=== PATIENT | male | born 1955 | race Caucasian/White ===

== ENCOUNTER 2016-09-25 21:25 | Emergency (ER) | payer MEDICARE, BC ==
[2016-09-25] MEDS ORDERED: ASPIRIN 81 MG TAB.CHEW ONE (21:45)
[2016-09-25] MEDS ORDERED: ASPIRIN 81 MG TAB.CHEW PO ONE (21:46)
[2016-09-25 21:52] LABS: Hematocrit 46.7 % (42.0-52.0); Hemoglobin 16.8 gm/dL (13.5-18.0); Mean Cell Volume 90.9 fl (78-100); Mean Corpuscular Hemoglobin 32.7 pg (27-31); Mean Platelet Volume 10.3 fl (6.0-9.5); Neutrophil # 3.2 K/mm3 (1.3-6.0); Neutrophil % 47.1 % (42-75.0); Platelet Count 197 K/mm3 (150-450); Red Blood Count 5.14 M/mm3 (4.7-6.0); White Blood Count 6.8 K/mm3 (4.0-10.5)
--- NOTE | 2016-09-25 22:00 | ERNOTE ---
Chest Pain/Cardiac HPI Chief Complaint: Chest Pain Time Seen by Provider: 09/25/16 21:49 Source: patient Exam Limitations: no limitations Immunizations: IMMUNIZATION HX Immunizations Up to Date Yes History of Influenza Vaccine Yes Hx Pneumococcal Vaccination Yes Allergies/Adverse Reactions: Allergies nitroglycerin Adverse Reaction (Verified 09/25/16 21:41) told not to take by his neurologist, can take in an emergenc Home Medications: HOME MEDICATIONS Aspirin [Aspirin Enteric Coated] 81 mg PO DAILY 03/27/15 [Last Taken Unknown] Enalapril Maleate [Vasotec] 10 mg PO DAILY 03/27/15 [Last Taken Unknown] Metoprolol Succinate [Toprol Xl] 200 mg PO DAILY 03/27/15 [Last Taken Unknown] Furosemide [Lasix] 40 mg PO DAILY PRN 05/25/15 [Last Taken Unknown] Atorvastatin Calcium [Lipitor] 80 mg PO DAILY 01/26/16 [Last Taken Unknown] Clopidogrel Bisulfate [Plavix] 75 mg PO DAILY 01/26/16 [Last Taken Unknown] Dabigatran Etexilate Mesylate [Pradaxa] 150 mg PO BID 01/26/16 [Last Taken Unknown] Nitroglycerin [Nitrostat] 0.4 mg SL Q5MIN PRN 02/05/16 [Last Taken Unknown] oxyCODONE HCL/ACETAMINOPHEN [Percocet 5 MG/325 MG] 1 - 2 tab PO Q4H PRN [Last Taken Unknown] Colchicine 0.6 mg PO BID #30 capsule 02/06/16 [Last Taken Unknown] Pantoprazole Sodium [Protonix] 40 mg PO DAILY 03/01/16 [Last Taken Unknown] Ranitidine HCl [Zantac] 300 mg PO QAM 03/01/16 [Last Taken Unknown] Cephalexin [Keflex] 500 mg PO QID #40 capsule 04/13/16 [Last Taken Unknown] HYDROcodone/ACETAMINOPHEN [Lorcet 5-325 mg Tablet] 1 - 2 each PO QID PRN #20 tablet 04/13/16 [Last Taken Unknown] predniSONE [Prednisone] 10 mg PO DAILY #10 tablet 04/13/16 [Last Taken Unknown] Narrative: Pt having shortness of breath for the past 4-5 days. He increased his lasix from 40mg to 80 mg daily 3 days ago. he did notice an increase in urinary output but not an improvement in his respiratory symptoms. today he has mild chest pressure Timing: constant, getting worse Severity/Quality: moderate Modifying Factors - Improves: Present: nothing Associated Symptoms: Present: diaphoresis Review of Systems - Review of Systems Constitutional: Present: diaphoresis EYE: Present: no symptoms reported ENT: Present: no symptoms reported Respiratory: Present: See HPI Cardiology: Present: See HPI Gastrointestinal/Abdominal: Present: no symptoms reported Genitourinary: Present: no symptoms reported Musculoskeletal: Present: no symptoms reported Skin: Present: no symptoms reported Neurological: Present: no symptoms reported Endocrine: Present: no symptoms reported Hematologic/Lymphatic: Present: no symptoms reported Psych: Present: no symptoms reported - Patient's Past Medical History Patient History - Medical: GERD, Other Patient History - Cardiac/Respiratory: Myocardial Infarction Patient History - Cancer: No Hx of Cancer Patient History - Surgical Procedures: Colonoscopy, Coronary Bypass Surgery, Cardiac stent, Other Patient History - Other: None - Family History Father Family History - Medical: , Alzheimer's Disease Family History - Cardiac/Respiratory: No pertinent hx - Social History Living Situations: spouse Abuse History: No History of abuse Psych History: No pertinent hx Does anyone smoke in the home?: Yes Smoking Status: Never smoker Have you smoked in the past 12 months: No Do you dip or chew tobacco: No Alcohol Use: rarely Drug Use: none - Immunizations Immunizations Up to Date: Yes Hx Pneumococcal Vaccination: Yes History of Influenza Vaccine: Yes Physical Exam - Physical Exam General Appearance: Present: wd/wn, alert, mild distress, anxious Eye Exam: Normal inspection: bilateral, PERRL: bilateral, EOMI: bilateral Ears, Nose, Throat: Present: normal ENT inspection Neck: Present: normal inspection, nontender Respiratory: Present: no respiratory distress, normal breath sounds, lungs clear Cardiovascular/Chest: Present: irregularly irregular Gastrointestinal/Abdominal: Present: normal bowel sounds Back Exam: Present: normal inspection, normal range of motion Extremity Exam: Present: no edema Neurological Exam: Present: alert, oriented, normal mood/affect Skin Exam: Present: normal color, warm/dry ED Progress - Results and Orders Patient's Lab Results:: I have reviewed the patient's lab results. Results and Orders: Laboratory Tests 09/25/16 09/25/16 09/25/16 21:35 21:35 21:35 WBC 6.8 Hgb 16.8 Hct 46.7 Plt Count 197 PT 12.5 H INR (Anticoag Therapy) 1.20 H PTT (Traill) 33.4 H Sodium 134 Potassium 4.3 Chloride 98 Carbon Dioxide 24.3 Anion Gap 16.0 H BUN 24 H Creatinine 1.41 H Est GFR (Non-Af Amer) 54 L Random Glucose 431 H Calcium 9.0 Total Bilirubin 0.6 AST 51 H ALT 88 H Alkaline Phosphatase 231 H Troponin I 0.052 B-Natriuretic Peptide 680 H Total Protein 7.4 Albumin 3.3 L 09/25/16 23:20 WBC Hgb Hct Plt Count PT INR (Anticoag Therapy) PTT (Leann) Sodium Potassium Chloride Carbon Dioxide Anion Gap BUN Creatinine Est GFR (Non-Af Amer) Random Glucose Calcium Total Bilirubin AST ALT Alkaline Phosphatase Troponin I 0.052 B-Natriuretic Peptide Total Protein Albumin - Vital Signs Patient's Vital Signs:: I have reviewed the patient's vital signs. Vital Signs: Vital Signs 09/25/16 09/25/16 21:28 21:35 Temperature 35.9 C L Pulse Rate 80 86 Respiratory 38 H Rate Blood Pressure 160/88 O2 Sat by Pulse 98 Oximetry - EKG EKG: atrial fibrillation, RBBB EKG read: Interp. by me - X-Ray X-Ray #1 X-Ray: chest Interpretation: Reviewed by me X-ray Comments: No infiltrate or effusion. X-Ray #2 X-Ray: abdomen Interpretation: Reviewed by me X-ray Comments: mild stool retention. No obstruction - Progress/Reassessment Chief Complaint: Chest Pain Departure - Departure Clinical Impression: CHF (congestive heart failure) Qualifiers: Congestive heart failure type: systolic Congestive heart failure chronicity: acute on chronic Qualified Code(s): I50.23 - Acute on chronic systolic ( congestive) heart failure Disposition: Home Follow Up Needed Condition: Good Instructions: Heart Failure, [place] Additional Instructions: continue with the increased dose of lasix (80mg ) for 2 more days. see your regular doctor in 5-7 days Referrals: Esmer Mahcado MD [Primary Care Provider] -
--- OUTSIDE RECORDS SUMMARY | 2016-09-25 22:04 | XMS REPORT | Continuity of Care Document ---
:1955 Author Organization [facility] ([facility]) Address [address] [place] [address] Phone [phone] Care Team Providers Name Role Phone Esmer Machado Primary Care Provider [phone] Source Comments This disclosure is being made pursuant to the Care Everywhere program, applicable federal and state laws, and may not contain all informaitonavailable regarding this patient.[facility] ([facility]) Active Allergies and Adverse Reactions No Known Allergies Current Medications Prescription Sig. Disp. Refills Start Date End Date Status colchicine 0.6 mg Take 1 Tab by mouth 30 Tab 11 09/11/2013 Active tablet 2 times daily as needed. Indications: GOUT aspirin 81 mg EC Take 81 mg by mouth Active tablet daily docusate 100 mg Take 100 mg by Active capsule mouth 2 times daily as needed oxyCODONE-acetamino Take 1-2 Tabs by 40 Tab 0 11/16/2014 Active phen 5-325 mg per mouth every 4 hours tablet as needed for pain. Do Not exceed 4000 mg of acetaminophen per [address] 1 tablet (0.4 25 tablet 11 03/20/2015 Active (NITROSTAT) 0.4 mg mg total) under the SL tablet tongue every 5 minutes as needed for Chest pain atorvastatin 80 mg Take 1 tablet (80 30 tablet 11 03/20/2015 Active tablet mg total) by mouth every evening ranitidine 300 mg Take 300 mg by 1 06/14/2015 Active tablet mouth 2 times daily. furosemide 40 mg Take 1 tablet (40 60 tablet 11 07/26/2015 Active tablet mg total) by mouth daily as needed. clopidogrel 75 mg Take 1 tablet (75 90 tablet 3 03/30/2016 Active tablet mg total) by mouth daily. pantoprazole 40 mg Take 1 tablet (40 90 tablet 3 03/30/2016 Active EC tablet mg total) by mouth daily. enalapril 10 mg Take 1 tablet (10 90 tablet 3 03/30/2016 Active tablet mg total) by mouth daily. predniSONE 10 mg Take 10 mg by mouth 0 04/13/2016 Active tablet daily. dabigatran Take 1 capsule (150 180 capsule 3 05/28/2016 Active (praDAXA) 150 mg mg total) by mouth capsule 2 times daily. metoPROLol tartrate Take 1 tablet (100 180 tablet 3 06/06/2016 Active 100 mg tablet mg total) by mouth 2 times daily. Active Problems Problem Noted Date S/P coronary artery stent placement 05/05/2015 Overview: 05/04/15 BRENT to LAD Coronary atherosclerosis of artery bypass graft 03/20/2015 Overview: Formatting of this note may be different from the original. CARDIOVASCULAR PROCEDURES OSTEOPATHIC PHYSICIAN: Cath (normal cors; normal LV) -2002 Cath (1. Normal LV function EF 65%. 2. Right dominant circulation. Insignificant coronary irregularities. ) - 07/06/2010 Cath (1. LVEF 50%. Apical akinesis. Distal inferior wall hypokinesis. 2. Right dominant circulation. LMCA normal. LAD long complex mid 85% stenosis involving the 1st septal rn security. Mild diffuse distal LAD disease. LCX 90% proximal stenosis. RCA large dominant vessel with 80% proximal stenosis, 95% stenosis at bifurcation of RPLA and RPDA vessels. ) - 08/23/2014 Cath 03/17/2015 Vein Graft to 1st Mrg Origin lesion, 100% stenosed. Distal LCx fills antegrade with no competetive filling. Graft to RPDA There is mild diffuse disease throughout the graft. Prox Graft lesion, 30% stenosed. This lesion initially appeared to be worse, but was realted to catheter induced spasm which improved with IC NTG. RODRIGUEZ Graft to Mid LAD The graft is angiographically normal. There is an obstructive lesion in the LAD distal to graft insertion however. Conclusion Elevated LVEDP Three vessel obstructive coronary artery disease as noted with patent SVG to RPDA and RODRIGUEZ to LAD (but lesion in LAD distal to insertion) but occluded SVG to OM S/P successful LCx and OM1 Promus drug-eluting stents Cath 05/04/2015 Stent deployment to distal LAD via RODRIGUEZ graft. No other images obtained ECHO/MUGA: Echo (Normal EF, mild LVH; mild LAE; normal echo) -2002 ELECTROPHYSIOLOGY: Ablations (RFA of typical AFl) -2003 Holter (holter with NSR interrupted by frequent PAF.) -2003 STRESS TESTS: [place] MPI (Normal EF, Distal-Anterior / Apical Ischemia) - 06/28/2010 [place] MPI (atrial fibrillation, fixed inferior wall defect. No anterior ischemia noted compared to previous study) - 07/15/2015 Type 2 diabetes mellitus with complication 03/16/2015 Chronic anticoagulation 03/16/2015 Chronic atrial fibrillation 03/08/2015 Carotid stenosis 10/19/2014 Overview: Left Carotid Endarterectomy 11/2014 Stroke 10/19/2014 Optic neuropathy, ischemic 10/19/2014 Coronary atherosclerosis of [place] coronary artery 10/01/2014 Overview: S/p 3 V CABG (RODRIGUEZ-LAD, rVG-OM, rVG-RPL) on 08.26.2014 @ [facility], Dr. Mirela Coburn. 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 Recurrent chest pain 09/06/2013 06/22/2015 Most Recent Encounters Date Type Specialty Providers Description 07/16/2016 Office Visit Neurology Beth Gomez MD Chief Comp: Patient Reported Reason For Visit Immunizations Name Dates Previously Given Next Due Influenza, unspecified 03/14/2015 Pneumococcal Polysaccharide, PPSV23 (Pneumovax 23) 03/18/2015 Social History Tobacco Use Types Packs/Day Years Used Date Former Smoker Cigarettes 0.5 40 Quit: 09/05/2013 Smokeless Tobacco: Never Used Tobacco Cessation:Counseling Given: Yes Comments:pack a day for 40 years, as of 09/06/13, 1/2 ppd for 2 years Alcohol Use Drinks/Week oz/Week Comments Yes 4 Cans of beer 6.0 none since 09/06/13 Last Filed Vital Signs Vital Sign Reading Time Taken Blood Pressure 136/76 05/08/2016 1:56 PM METHODS AND PROCEDURES ANALYST Pulse 72 05/08/2016 1:56 PM METHODS AND PROCEDURES ANALYST Temperature 36 C (96.8 F) 05/05/2015 9:16 AM METHODS AND PROCEDURES ANALYST Respiratory Rate 16 05/05/2015 9:16 AM METHODS AND PROCEDURES ANALYST Height 1.905 m (6' 3") 05/08/2016 1:56 PM METHODS AND PROCEDURES ANALYST Weight 129.729 kg (286 lb) 05/08/2016 1:56 PM METHODS AND PROCEDURES ANALYST Body Mass Index 35.75 05/08/2016 1:56 PM METHODS AND PROCEDURES ANALYST Oxygen Saturation 97% 11/28/2015 2:01 PM CDT Plan of Care Date Type Specialty Providers Description 12/04/2016 Appointment Heart and Vascular Devang Tran MD Chief Comp: Patient [address] [address] Visit [phone] (Fax) 12/31/2016 Appointment Neurology Beth Gomez MD Chief Comp: Patient [address] [place] [address] Visit [phone] (Fax) 03/05/2017 Appointment Heart and Vascular Joselin Peguero MD Chief Comp: Patient [address] [place] [address] Visit [phone] (Fax) Health Maintenance Due Date Last Done Comments HCV Screening 1955 Hepatitis B Vaccine (1 of 3 - 1955 Primary Series) Tdap Vaccine 1966 DIABETIC: Microalbumin 1973 Td Vaccine 1973 Colonoscopy 01/20/2005 Prostate Cancer Screening 2005 Diabetic: Ldl 09/08/2014 09/08/2013, 09/07/2013, 03/27/1996 DIABETIC: Foot Exam 10/01/2014 DIABETIC: Retinal Eye Exam 10/01/2014 Zoster Vaccine 2015 DIABETIC: Hemoglobin A1C 11/02/2015 05/03/2015, 09/07/2013 Influenza Vaccine: Seasonal 12/19/2015 03/14/2015 (#1) DIABETIC: Cholesterol 05/03/2016 05/03/2015, Additional history exists 09/08/2013, 09/07/2013 Diabetic: Hdl 05/03/2016 05/03/2015, Additional history exists 09/08/2013, 09/07/2013 DIABETIC: Triglycerides 05/03/2016 05/03/2015, Additional history exists 09/08/2013, 09/07/2013 Pneumococcal Vaccine Completed 03/18/2015 Results from Last 3 Months Not on file
[2016-09-25 22:19] LABS: Albumin * 3.3 gm/dl (3.4-5.0); Bilirubin, Total 0.6 mg/dL (0.0-1.1); Ca. Corrected For Albumin 9.2 mg/dL (8.4-10.2); Carbon Dioxide 24.3 mmol/L (24-32.6); Potassium 4.3 mmol/L (3.4-4.6); Total Protein 7.4 gm/dL (6.2-8.2); Troponin I 0.052 ng/ml (0.00-0.10)
[2016-09-25 22:44] LABS: Prothrombin Time (Patient) 12.5 Seconds (9.4-11.4)
[2016-09-25 22:45] LABS: INR 1.2 INR (0.90-1.10); Partial Thrombolplastin Time 33.4 Seconds (24-32)
[2016-09-26] MEDS ORDERED: FUROSEMIDE 10 MG/ML VIAL IV ONE (01:06)
[2016-09-26] MEDS ORDERED: FUROSEMIDE 10 MG/ML VIAL ONE (01:18)
[2016-09-26 01:27] VITALS: BP 143/105
== END 2016-09-26 01:30 | disposition home or self-care (01) ==
LOC: ER 21:25
DX: I50.23 Acute on chronic systolic (congestive) heart failure (principal)

== ENCOUNTER 2016-12-28 19:43 | Emergency (ER) | payer MEDICARE, BC ==
[2016-12-28 19:45] VITALS: BP 163/82
[2016-12-28] MEDS ORDERED: DIPHTH,PERTUSS(ACELL),TET VAC 0.5 ML VIAL IM ONE ×2 (19:59→20:00)
--- NOTE | 2016-12-28 20:05 | ERNOTE ---
Integumentary HPI - Narrative Date of Service: 12/28/16 - General Presenting Symptoms: other - scratch Time Seen by Provider: 12/28/16 19:50 Source: patient - Immun/Allergies/Home Medications Immunizations: IMMUNIZATION HX Immunizations Up to Date Yes History of Influenza Vaccine Yes Hx Pneumococcal Vaccination Yes Allergies/Adverse Reactions: Allergies Allergy/AdvReac Type Severity Reaction Status Date / Time nitroglycerin AdvReac told not Verified 10/30/16 11:16 to take by his neurologist, can take in an emergenc Home Medications: HOME MEDICATIONS Aspirin [Aspirin Enteric Coated] 81 mg PO DAILY 03/27/15 [Last Taken Unknown] Enalapril Maleate [Vasotec] 5 mg PO BID 03/27/15 [Last Taken Unknown] Metoprolol Succinate [Toprol Xl] 200 mg PO DAILY 03/27/15 [Last Taken Unknown] Furosemide [Lasix] 40 mg PO DAILY 05/25/15 [Last Taken Unknown] Atorvastatin Calcium [Lipitor] 80 mg PO DAILY 01/26/16 [Last Taken Unknown] Clopidogrel Bisulfate [Plavix] 75 mg PO DAILY 01/26/16 [Last Taken Unknown] Dabigatran Etexilate Mesylate [Pradaxa] 150 mg PO BID 01/26/16 [Last Taken Unknown] Nitroglycerin [Nitrostat] 0.4 mg SL Q5MIN PRN 02/05/16 [Last Taken Unknown] Colchicine 0.6 mg PO BID #30 capsule 02/06/16 [Last Taken Unknown] Pantoprazole Sodium [Protonix] 40 mg PO HS 03/01/16 [Last Taken Unknown] Ranitidine HCl [Zantac] 300 mg PO QAM 03/01/16 [Last Taken Unknown] HYDROcodone/ACETAMINOPHEN [Lorcet 5-325 mg Tablet] 1 - 2 each PO QID PRN #20 tablet 04/13/16 [Last Taken Unknown] Furosemide [Lasix] 80 mg PO DAILY PRN 10/30/16 [Last Taken Unknown] - History of Present Illness Narrative: patient scratched his right shoulder on a old [employer] [place] door. he states he is not up to date on his tetanus. Location: Reports: torso Quality: Reports: burning Severity: mild Exposure: Reports: other Modifying Factors - (Improves): Reports: nothing Modifying Factors - (Worsens): Reports: nothing Associated Symptoms: Reports: denies symptoms Review of Systems - Review of Systems Constitutional: Present: no symptoms reported EYE: Present: no symptoms reported ENT: Present: no symptoms reported Respiratory: Present: no symptoms reported Cardiology: Present: no symptoms reported Gastrointestinal/Abdominal: Present: no symptoms reported Genitourinary: Present: no symptoms reported Musculoskeletal: Present: no symptoms reported Skin: Present: See HPI, lesions Neurological: Present: no symptoms reported Endocrine: Present: no symptoms reported Hematologic/Lymphatic: Present: no symptoms reported Psych: Present: no symptoms reported All Other Systems: All systems neg except as marked - Patient's Past Medical History Patient History - Medical: GERD, Other Patient History - Cardiac/Respiratory: Myocardial Infarction Patient History - Cancer: No Hx of Cancer Patient History - Surgical Procedures: Colonoscopy, Coronary Bypass Surgery, Cardiac stent, Other Patient History - Other: None - Family History Father Family History - Medical: , Alzheimer's Disease Family History - Cardiac/Respiratory: No pertinent hx Family History - Cancer: No pertinent family hx Mother Family History - Medical: Family History - Cardiac/Respiratory: CHF, Myocardial Infarction Family History - Cancer: No pertinent family hx - Social History Living Situations: spouse Abuse History: No History of abuse Psych History: No pertinent hx Does anyone smoke in the home?: Yes Alcohol Use: rarely Drug Use: none - Immunizations Immunizations Up to Date: Yes Hx Pneumococcal Vaccination: Yes History of Influenza Vaccine: Yes Physical Exam - Physical Exam General Appearance: Present: wd/wn, alert, no apparent distress Head Exam: Present: normal inspection, no evidence of injury Eye Exam: Normal inspection: bilateral, PERRL: bilateral, EOMI: bilateral Ears, Nose, Throat: Present: normal ENT inspection, normal pharynx Neck: Present: normal inspection, nontender Respiratory: Present: no respiratory distress, normal breath sounds, no accessory muscle use, chest nontender, lungs clear Cardiovascular/Chest: Present: regular rate, rhythm, normal peripheral pulses Gastrointestinal/Abdominal: Present: normal bowel sounds, nontender, nondistended, soft, no organomegaly Back Exam: Present: normal inspection, normal range of motion, no CVA tenderness , no vertebral tenderness Extremity Exam: Present: normal inspection, non-tender, normal range of motion, no edema Neurological Exam: Present: alert, oriented, normal mood/affect, no motor/ sensory deficits Skin Exam: Present: normal color, warm/dry, other - 8cm scratch to right shoulder Lymphatic Exam: Present: no adenopathy ED Progress - Vital Signs Patient's Vital Signs:: I have reviewed the patient's vital signs. Departure Clinical Impression: Skin abrasion - Departure Disposition: Home self-care Condition: Stable Instructions: Diphtheria Toxoid; Tetanus Toxoid Adsorbed, DT, Td Additional Instructions: Continue any previous home medications. Follow-up with your primary care provider in the next 2-3 days if symptoms become worse. Monitor for signs and symptoms of infection. Referrals: Esmer Machado MD [Primary Care Provider] -
== END 2016-12-28 20:11 | disposition home or self-care (01) ==
LOC: ER 19:43
DX: S40.211A Abrasion of right shoulder, initial encounter (principal); W30.81XA Contact with agricultural transport vehicle in stationary use, initial encounter; Y93.89 Activity, other specified; Z23 Encounter for immunization

== ENCOUNTER 2017-01-13 13:11 | Emergency (ER) | payer MEDICARE, BC ==
[2017-01-13] MEDS ORDERED: MORPHINE SULFATE 4 MG/ML SYRG IV ONE (14:04)
[2017-01-13] MEDS ORDERED: MORPHINE SULFATE 4 MG/ML SYRG ONE (14:06)
--- NOTE | 2017-01-13 14:06 | ERNOTE ---
Upper Extremity HPI - Narrative Date of Service: 01/13/17 - General Extremities Pain Location: collar-bone area: left, shoulder: left, arm: left, elbow: left, forearm: left, wrist: left, hand: left Time Seen by Provider: 01/13/17 13:34 Source: patient, other - accompanied by his provides a lot of history as patient has had a previous CVA. - Immun/Allergies/Home Medications Immunizations: IMMUNIZATION HX Immunizations Up to Date Yes History of Influenza Vaccine Yes Hx Pneumococcal Vaccination No Allergies/Adverse Reactions: Allergies Allergy/AdvReac Type Severity Reaction Status Date / Time nitroglycerin AdvReac told not Verified 12/28/16 20:07 to take by his neurologist, can take in an emergenc Home Medications: HOME MEDICATIONS Aspirin [Aspirin Enteric Coated] 81 mg PO DAILY 03/27/15 [Last Taken Unknown] Enalapril Maleate [Vasotec] 5 mg PO BID 03/27/15 [Last Taken Unknown] Metoprolol Succinate [Toprol Xl] 200 mg PO DAILY 03/27/15 [Last Taken Unknown] Furosemide [Lasix] 40 mg PO DAILY 05/25/15 [Last Taken Unknown] Atorvastatin Calcium [Lipitor] 80 mg PO DAILY 01/26/16 [Last Taken Unknown] Clopidogrel Bisulfate [Plavix] 75 mg PO DAILY 01/26/16 [Last Taken Unknown] Dabigatran Etexilate Mesylate [Pradaxa] 150 mg PO BID 01/26/16 [Last Taken Unknown] Nitroglycerin [Nitrostat] 0.4 mg SL Q5MIN PRN 02/05/16 [Last Taken Unknown] Colchicine 0.6 mg PO BID #30 capsule 02/06/16 [Last Taken Unknown] Pantoprazole Sodium [Protonix] 40 mg PO HS 03/01/16 [Last Taken Unknown] Ranitidine HCl [Zantac] 300 mg PO QAM 03/01/16 [Last Taken Unknown] HYDROcodone/ACETAMINOPHEN [Lorcet 5-325 mg Tablet] 1 - 2 each PO QID PRN #20 tablet 04/13/16 [Last Taken Unknown] Furosemide [Lasix] 80 mg PO DAILY PRN 10/30/16 [Last Taken Unknown] HYDROcodone/ACETAMINOPHEN [Hydrocodon-Acetaminophn 10-325] 1 each PO Q8H 5 Days #15 tablet 01/13/17 [Last Taken Unknown] - History of Present Illness Date (Duration): 01/11/17 Time (Timing): 08:00 Occurred: other - 2 days prior patient had a left pacemaker inserted at [facility]. Patient now is complaining of increasing left upper extremity pain and swelling up. Location of Incident: other - [facility] pacemaker insertion Severity: severe Method of Injury: Reports: other - pacemaker insertion Reason for Fall: Reports: other - denies trauma status post surgical procedures noted above.. Denies: lost balance, slipped, tripped Loss of Consciousness: Denies: no loss of consciousness Modifying Factors - (Improves): Reports: other - pain medication does not help with the discomfort. Modifying Factors - (Worsens): Reports: movement Associated Symptoms: Reports: tingling, other - severe pain Other Injuries: Reports: none Prior Treament: Reports: other - patient is currently on anticoagulants PRADAXA Review of Systems - Narrative Narrative: Patient is a 61-year-old male with multiple comorbidities coronary artery disease previous CVA gouty arthritis on chronic anticoagulation therapy who presents today for left upper extremity swelling. He reports that he underwent a pacemaker insertion left upper chest and since then he had some mild swelling and discomfort he is now complaining of left upper extremity asymmetric swelling with notable left anterior chest wall pain as well. - Review of Systems Constitutional: Present: See HPI EYE: Present: vision changes, other - patient has loss of vision in left eye and diminished on the right. ENT: Present: no symptoms reported Respiratory: Present: no symptoms reported Cardiology: Present: chest pain Gastrointestinal/Abdominal: Present: no symptoms reported Genitourinary: Present: no symptoms reported Musculoskeletal: Present: See HPI, muscle stiffness, joint pain, joint swelling Skin: Present: other - left upper extremity discoloration. Neurological: Present: tingling - left upper extremity Endocrine: Present: no symptoms reported Hematologic/Lymphatic: Present: easy bruising, other - chronic anticoagulation. PRADAXA - Narrative Narrative: Past medical history, past surgical history, past family history, social history , medication history, allergies, medications were all reviewed. - Patient's Past Medical History Patient History - Medical: GERD, Other Patient History - Cardiac/Respiratory: Arrhythmias, CHF, CVA/Stroke, Myocardial Infarction Patient History - Cancer: No Hx of Cancer Patient History - Surgical Procedures: Colonoscopy, Coronary Bypass Surgery, Cardiac stent, Pacemaker, Other Patient History - Other: None - Family History Father Family History - Medical: , Alzheimer's Disease Family History - Cardiac/Respiratory: No pertinent hx Family History - Cancer: No pertinent family hx Mother Family History - Medical: Family History - Cardiac/Respiratory: CHF, Myocardial Infarction Family History - Cancer: No pertinent family hx - Social History Living Situations: home Abuse History: No History of abuse Psych History: No pertinent hx Does anyone smoke in the home?: Yes Smoking Status: Former smoker Have you smoked in the past 12 months: No Do you dip or chew tobacco: No Alcohol Use: rarely Drug Use: none - Immunizations Immunizations Up to Date: Yes Hx Pneumococcal Vaccination: No History of Influenza Vaccine: Yes Physical Exam - Physical Exam General Appearance: Present: wd/wn, alert, severe distress - due to pain Head Exam: Present: normal inspection, no evidence of injury Eye Exam: Normal inspection: bilateral, PERRL: bilateral, EOMI: bilateral Ears, Nose, Throat: Present: normal ENT inspection Neck: Present: normal inspection, nontender Respiratory: Present: no respiratory distress, normal breath sounds, no accessory muscle use, chest nontender, lungs clear Cardiovascular/Chest: Present: regular rate, rhythm, no murmur, normal peripheral pulses Gastrointestinal/Abdominal: Present: normal bowel sounds, nontender, nondistended, soft, no organomegaly Rectal Exam: Present: deferred Male Genitals Exam: Present: deferred Extremity Exam: Present: normal except -, bony tenderness, joint swelling, extremity edema, other - elbow has tophi deformity from gouty arthritis. Very tender to touch.. Absent: normal range of motion, joint redness Skin Exam: Present: other - duskiness to left upper extremity ED Progress - Results and Orders Patient's Lab Results:: I have reviewed the patient's lab results. Results and Orders: Laboratory Tests 01/13/17 14:25 WBC 8.7 RBC 4.75 Hgb 15.6 Hct 44.1 MCV 92.8 MCH 32.8 H MCHC 35.4 RDW 13.6 Plt Count 159 MPV 10.0 H Immature Gran % (Auto) 0.30 Immature Gran # (Auto) 0.03 Neutrophils % 58.0 Lymphocytes % 27.7 Monocytes % 10.1 H Eosinophils % 3.1 H Basophils % 0.8 Nucleated RBC % 0.0 Neutrophils # 5.0 Lymphocytes # 2.4 Monocytes # 0.9 Eosinophils # 0.3 Absolute Basophils 0.1 - Vital Signs Patient's Vital Signs:: I have reviewed the patient's vital signs. Vital Signs: Vital Signs 01/13/17 13:16 Temperature 36.0 C L Pulse Rate 106 H Respiratory 22 H Rate Blood Pressure 134/86 O2 Sat by Pulse 96 Oximetry - EKG EKG read: Interp. by me EKG Comments: EKG done 1452 demonstrates sinus tachycardia with first-degree AV block consistent with previous EKG on October 2013 demonstrating atrial fibrillation with rapid ventricular response right bundle branch block is old. Patient had a pacemaker inserted and he does not have a scene he still has his atrial sinus node. - X-Ray X-Ray #1 X-Ray: chest Interpretation: Reviewed by me X-ray Comments: [facility] PATIENT RADIOLOGY STUDY REPORT Patient Patient Name:DENYS ARAUJO Date: 1955 Sex: M Order Number: [id number] Unique Exam ID: [id number] Exam Requested: CXRPALAT - Chest PA Lateral * Date Scheduled: 01-13-2017 02:18 PM Study Priority: Requesting Service: Requesting Physician: Ivis Meredith Reason for Exam: congestion Radiological Report : [place] [address] [place] [address] NAME: DENYS ARAUJO : 1955 MR #: [id number] CC: Esmer Machado MD; Ivis Meredith DO LOC: ER ADM DATE: X-RAY REPORT [id number] RAD/Chest PA Lateral * Exam Date: 01/13/2017 14:18 Ordering Physician: Ivis Meredith HISTORY: congestion Additional history from technologist: Shortness of breath. Fluid in lung. TECHNIQUE: PA and lateral views of the chest were obtained. 4 images. COMPARISONS: 10/30/2016 FINDINGS: Chest PA Lateral * Interval placement of a implantable cardioverter/pacemaker device, with leads grossly intact. Generator overlying the left upper chest. Normal lung volumes. No consolidation or mass. Mildly increased vascular markings suggested. No pneumothorax or pleural fluid collections. [id number] cardiomegaly, stable. Vascular calcifications overlying the aorta suggestive of atherosclerosis. Trachea is in normal position. Bones show degenerative changes of the spine. Median sternotomy wires are present. IMPRESSION: 1. No focal acute cardiopulmonary finding. 2. Mildly increased vascular markings suggested. Correlate clinically for pulmonary venous congestion. 3. Interval placement of implantable cardioverter/pacemaker device. Electronically signed by Sergey Hernández M.D.. Sergey Hernández MD Dict: 01/13/17 1452 Typed: 01/13/17 1452/ 01/13/17 1455 01/13/17 1458 , Approved by: SERGEY HERNÁNDEZ Approval Date: 01-13-2017 Approval Time: 02:52 PM THIS REPORT WAS RECEIVED FROM THE [email or web address] SYSTEM - CT/Ultrasound CT/Ultrasound Narrative: [facility] PATIENT RADIOLOGY STUDY REPORT Patient Patient Name:DENYS ARAUJO Date: 1955 Sex: M Order Number: [id number] Unique Exam ID: [id number] Exam Requested: VENOUS-LT - US Venous Ext Limited LT * Date Scheduled: 01-13-2017 02:32 PM Study Priority: Requesting Service: Requesting Physician: Ivis Meredith Reason for Exam: left upper extremity swelling and pain status post Radiological Report : [facility] [address] [address] NAME: DENYS ARAUJO : 1955 MR #: [id number] CC: Esmer Machado MD; Ivis Meredith DO LOC: ER ADM DATE: X-RAY REPORT [id number] ULT/US Venous Ext Limited LT * Exam Date: 01/13/2017 14:32 Ordering Physician: Ivis Meredith HISTORY: Left upper extremity swelling and pain. History of recent pacemaker placement. TECHNIQUE: Transcutaneous grayscale, color and duplex ultrasound images of the left upper extremity veins were obtained. COMPARISONS: 09/06/2014 FINDINGS: US Venous Ext Limited LT * The left internal jugular, axillary, brachial, basilic, antecubital, radial, ulnar, and cephalic veins demonstrate normal compressibility with no evidence for deep venous thrombosis. Rouleau flow identified at the basilic vein but compressed on real-time as per technologist. Grossly normal color flow. The left subclavian vein was only seen partially, with the mid and distal segment obscured by pacemaker and edema around the pacemaker insertion site. The partially visualized subclavian vein appears to be unremarkable. IMPRESSION: Examination limited in regards to the evaluation of left subclavian vein due to overlying pacemaker. Otherwise negative examination without definite signs of left upper extremity deep venous thrombosis. Electronically signed by Sergey Hernández M.D.. Sergey Hernández MD Dict: 01/13/17 155 Typed: 01/13/17 1550/ 01/13/17 1557 01/13/17 1600 Approved by: SERGEY HERNÁNDEZ Approval Date: 01-13-2017 Approval Time: 03:50 PM THIS REPORT WAS RECEIVED FROM THE [email or web address] SYSTEM - Progress/Reassessment Chief Complaint: Shoulder Injury/Pain Plan - Plan Plan: Discussed discharge plans with of family patient is stable for discharge recommended that he follow up with cardiology and let his primary doctor know if he has any worsening pain. Pain control is a problem for him I did give it a refill for the next 5 days but then after that he'll have to follow up with his primary care doctor. Departure Clinical Impression: Left arm swelling, Gouty arthropathy with tophi, Hx of CABG Coronary artery disease Qualifiers: Coronary Disease-Associated Artery/Lesion type: [place] artery [place] vs. transplanted heart: [place] heart Associated angina: without angina Qualified Code(s): I25.10 - Atherosclerotic heart disease of [place] coronary artery without angina pectoris - Departure Disposition: Home self-care Instructions: Shoulder Pain, [id number], Degenerative Disk Disease Additional Instructions: USE YOUR LEFT ARM TO KEEP SWELLING DOWN, USE PAIN MEDICATIONS DIRECTED, FOLLOW UP WITH CARDIOLOGY ON SaturdayDec. Referrals: Esmer Machado MD [Primary Care Provider] - Prescriptions: HYDROcodone/ACETAMINOPHEN [Hydrocodon-Acetaminophn 10-325] 1 each PO Q8H 5 Days #15 tablet
[2017-01-13 14:33] LABS: Hematocrit 44.1 % (42.0-52.0); Hemoglobin 15.6 gm/dL (13.5-18.0); Mean Cell Volume 92.8 fl (78-100); Mean Corpuscular Hemoglobin 32.8 pg (27-31); Mean Corpuscular Hgb Conc 35.4 g/dl (32-36); Platelet Count 159 K/mm3 (150-450); Red Blood Count 4.75 M/mm3 (4.7-6.0); Red Cell Distribution Width 13.6 % (11.5-14.0); White Blood Count 8.7 K/mm3 (4.0-10.5)
[2017-01-13 14:46] LABS: Prothrombin Time (Patient) 11.6 Seconds (9.4-11.4)
[2017-01-13 14:51] LABS: INR 1.12 INR (0.90-1.10); Partial Thrombolplastin Time 32.5 Seconds (24-32)
[2017-01-13 14:54] LABS: Albumin * 3.4 gm/dl (3.4-5.0); Anion Gap 15.2 mmol/L (6.8-13.8); BUN/Creatinine Ratio 16.8 (9.0-21.6); Bilirubin, Total 0.8 mg/dL (0.0-1.1); CRP 3.9 mg/dL (0.0-0.9); Ca. Corrected For Albumin 8.7 mg/dL (8.4-10.2); Calcium * 8.5 mg/dL (7.9-10.9); Carbon Dioxide 24.6 mmol/L (24-32.6); Potassium 3.8 mmol/L (3.4-4.6); Total Protein 7.4 gm/dL (6.2-8.2); Uric Acid 6.6 mg/dL (2.6-7.2)
[2017-01-13 14:55] LABS: Troponin I 0.041 ng/ml (0.00-0.10)
[2017-01-13 18:13] VITALS: BP 151/110
== END 2017-01-13 18:13 | disposition home or self-care (01) ==
LOC: ER 13:11
DX: M79.89 Other specified soft tissue disorders (principal); M1A.9XX1 Chronic gout, unspecified, with tophus (tophi); Z95.1 Presence of aortocoronary bypass graft; I25.10 Atherosclerotic heart disease of native coronary artery without angina pectoris; Z95.5 Presence of coronary angioplasty implant and graft; Z95.0 Presence of cardiac pacemaker; Z87.891 Personal history of nicotine dependence

== ENCOUNTER 2017-03-07 14:29 | Emergency (ER) | payer MEDICARE, BC ==
[2017-03-07] MEDS ORDERED: HYDROmorphone HCL 1 MG/ML DISP.SYRIN ONE (14:31)
[2017-03-07] MEDS ORDERED: HYDROmorphone HCL 1 MG/ML DISP.SYRIN IV ONE (14:35)
--- NOTE | 2017-03-07 14:38 | ERNOTE ---
Lower Extremity HPI - General Lower Extremities Pain: hip: right Time Seen by Provider: 03/07/17 14:29 Source: patient - Immun/Allergies/Home Medications Immunizations: IMMUNIZATION HX Immunizations Up to Date Yes History of Influenza Vaccine Yes Hx Pneumococcal Vaccination No Allergies/Adverse Reactions: Allergies Allergy/AdvReac Type Severity Reaction Status Date / Time nitroglycerin AdvReac told not Verified 03/07/17 14:30 to take by his neurologist, can take in an emergenc Home Medications: HOME MEDICATIONS Aspirin [Aspirin Enteric Coated] 81 mg PO DAILY 03/27/15 [Last Taken Unknown] Enalapril Maleate [Vasotec] 5 mg PO BID 03/27/15 [Last Taken Unknown] Metoprolol Succinate [Toprol Xl] 200 mg PO DAILY 03/27/15 [Last Taken Unknown] Furosemide [Lasix] 40 mg PO DAILY 05/25/15 [Last Taken Unknown] Atorvastatin Calcium [Lipitor] 80 mg PO DAILY 01/26/16 [Last Taken Unknown] Clopidogrel Bisulfate [Plavix] 75 mg PO DAILY 01/26/16 [Last Taken Unknown] Dabigatran Etexilate Mesylate [Pradaxa] 150 mg PO BID 01/26/16 [Last Taken Unknown] Nitroglycerin [Nitrostat] 0.4 mg SL Q5MIN PRN 02/05/16 [Last Taken Unknown] Colchicine 0.6 mg PO BID #30 capsule 02/06/16 [Last Taken Unknown] Pantoprazole Sodium [Protonix] 40 mg PO HS 03/01/16 [Last Taken Unknown] Ranitidine HCl [Zantac] 300 mg PO QAM 03/01/16 [Last Taken Unknown] HYDROcodone/ACETAMINOPHEN [Lorcet 5-325 mg Tablet] 1 - 2 each PO QID PRN #20 tablet 04/13/16 [Last Taken Unknown] Furosemide [Lasix] 80 mg PO DAILY PRN 10/30/16 [Last Taken Unknown] HYDROcodone/ACETAMINOPHEN [Hydrocodon-Acetaminophn 10-325] 1 each PO Q8H 5 Days #15 tablet 01/13/17 [Last Taken Unknown] - History of Present Illness Narrative: Patient was sitting in his chair when he had sudden severe pain in his right hip /leg, denies any injury, pain is severe not responding to fentanyl or morphine. He cannot feel or move his right leg. He has an extensive vascular history (CAD, CVA), is on pradaxa which he took this morning, denies any other symptoms at this time Date (Duration): 03/07/17 Time (Timing): 13:20 Review of Systems - Review of Systems Constitutional: Absent: recent illness, fever Respiratory: Absent: shortness of breath, cough Cardiology: Absent: chest pain Gastrointestinal/Abdominal: Absent: nausea, vomiting, abdominal pain Genitourinary: Present: no symptoms reported Musculoskeletal: Present: See HPI Neurological: Present: weakness, numbness - Patient's Past Medical History Patient History - Medical: GERD, Other Patient History - Cardiac/Respiratory: Arrhythmias, CHF, CVA/Stroke, Myocardial Infarction Patient History - Cancer: No Hx of Cancer Patient History - Surgical Procedures: Colonoscopy, Coronary Bypass Surgery, Cardiac stent, Pacemaker, Other Patient History - Other: None - Family History Father Family History - Medical: , Alzheimer's Disease Family History - Cardiac/Respiratory: No pertinent hx Family History - Cancer: No pertinent family hx Mother Family History - Medical: Family History - Cardiac/Respiratory: CHF, Myocardial Infarction Family History - Cancer: No pertinent family hx - Social History Abuse History: No History of abuse Psych History: No pertinent hx - Immunizations Immunizations Up to Date: Yes Hx Pneumococcal Vaccination: No History of Influenza Vaccine: Yes Physical Exam - Physical Exam General Appearance: Present: wd/wn, alert, severe distress Respiratory: Present: no respiratory distress, normal breath sounds, no accessory muscle use, lungs clear Cardiovascular/Chest: Present: no murmur, tachycardia Extremity Exam: Present: normal except - - right lower leg pale, pulses not palpable nor appreciated with doppler, unable to feel or move right leg, no pain on passive movement of leg, no pain on palpation Neurological Exam: Present: alert, oriented, normal mood/affect, other - 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 Vital Signs: Vital Signs 03/07/17 14:31 Temperature 35.7 C L Pulse Rate 106 H Respiratory 26 H Rate Blood Pressure 156/129 O2 Sat by Pulse 99 Oximetry - EKG EKG: atrial fibrillation, RBBB, unchanged from - 01/13/2017 EKG read: Interp. 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 Condition: Fair
[2017-03-07] MEDS ORDERED: HEPARIN SODIUM,PORCINE 5,000 UNITS/ML VIAL IV ONE (14:41)
[2017-03-07] MEDS ORDERED: HEPARIN SODIUM,PORCINE/D5W 25,000 UNITS/500 ML BAG IV ONE (14:42)
[2017-03-07] MEDS ORDERED: HEPARIN SODIUM,PORCINE 5,000 UNITS/ML VIAL ONE (14:43)
[2017-03-07] MEDS ORDERED: HEPARIN SODIUM,PORCINE/D5W 25,000 UNITS/500 ML BAG IV SCH (14:45)
[2017-03-07] MEDS ORDERED: ONDANSETRON HCL/PF 2 MG/ML VIAL ONE (14:46)
[2017-03-07] MEDS ORDERED: ONDANSETRON HCL/PF 2 MG/ML VIAL IV ONE (14:48)
[2017-03-07 14:53] VITALS: BP 167/115
[2017-03-07 14:55] LABS: Hematocrit 47.5 % (42.0-52.0); Hemoglobin 17.5 gm/dL (13.5-18.0); Mean Cell Volume 90.3 fl (78-100); Mean Corpuscular Hemoglobin 33.3 pg (27-31); Mean Corpuscular Hgb Conc 36.8 g/dl (32-36); Mean Platelet Volume 10.8 fl (6.0-9.5); Neutrophil # 4.3 K/mm3 (1.3-6.0); Neutrophil % 50.5 % (42-75.0); Platelet Count 177 K/mm3 (150-450); Red Blood Count 5.26 M/mm3 (4.7-6.0); White Blood Count 8.5 K/mm3 (4.0-10.5)
[2017-03-07 15:12] LABS: Prothrombin Time (Patient) 11.6 Seconds (9.0-11.0)
[2017-03-07 15:15] LABS: INR 1.16 INR (0.90-1.10); Partial Thrombolplastin Time 29.9 Seconds (24-32)
== END 2017-03-07 15:10 | disposition short-term general hospital (02) ==
LOC: ER 14:29
DX: I74.3 Embolism and thrombosis of arteries of the lower extremities (principal); K21.9 Gastro-esophageal reflux disease without esophagitis; I50.9 Heart failure, unspecified; I25.2 Old myocardial infarction; Z95.5 Presence of coronary angioplasty implant and graft
CPT/HCPCS: 36415; 85025; 85610; 85730; 96365; 96375; 99284; J2405

== ENCOUNTER 2017-03-20 10:04 | Observation (INO) | payer MEDICARE, BC ==
[2017-03-20] MEDS ORDERED: METOPROLOL TARTRATE 1 MG/ML AMPUL IV ONE (10:26)
[2017-03-20 10:29] LABS: Hemoglobin 14.9 gm/dL (13.5-18.0); Mean Cell Volume 93.9 fl (78-100); Mean Corpuscular Hemoglobin 32.5 pg (27-31); Mean Corpuscular Hgb Conc 34.7 g/dl (32-36); Mean Platelet Volume 9.6 fl (6.0-9.5); Neutrophil # 5.7 K/mm3 (1.3-6.0); Neutrophil % 61.4 % (42-75.0); Platelet Count 293 K/mm3 (150-450); Red Blood Count 4.58 M/mm3 (4.7-6.0); Red Cell Distribution Width 13.1 % (11.5-14.0); White Blood Count 9.3 K/mm3 (4.0-10.5)
[2017-03-20 10:39] LABS: Prothrombin Time (Patient) 37.5 Seconds (9.0-11.0)
[2017-03-20 10:42] LABS: INR 3.7 INR (0.90-1.10)
[2017-03-20 10:50] LABS: Albumin * 3.3 gm/dl (3.4-5.0); Anion Gap 12.9 mmol/L (6.8-13.8); BUN/Creatinine Ratio 16.1 (9.0-21.6); Bilirubin, Total 0.8 mg/dL (0.0-1.1); CKMB 1.7 ng/mL (0.0-9.0); Ca. Corrected For Albumin 9.5 mg/dL (8.4-10.2); Calcium * 9.3 mg/dL (7.9-10.9); Carbon Dioxide 28.9 mmol/L (24-32.6); Potassium 3.8 mmol/L (3.4-4.6); Total Protein 7.9 gm/dL (6.2-8.2)
[2017-03-20 10:51] LABS: Troponin I 0.053 ng/ml (0.00-0.10)
--- NOTE | 2017-03-20 12:26 | ERNOTE ---
Dyspnea - Date Date of Service: 03/20/17 - General Presenting Symptoms: shortness of breath Time Seen by Provider: 03/20/17 10:50 Source: patient Exam Limitations: no limitations - Immun/Allergies/Home Medications Immunizations: IMMUNIZATION HX Immunizations Up to Date Yes History of Influenza Vaccine Yes Hx Pneumococcal Vaccination Yes Allergies/Adverse Reactions: Allergies nitroglycerin Adverse Reaction (Verified 03/20/17 10:31) told not to take by his neurologist, can take in an emergenc Contraindication by Dr. Gomez (neurologist [facility]), can take in case of an emergency Home Medications: HOME MEDICATIONS Aspirin [Aspirin Enteric Coated] 81 mg PO DAILY 03/27/15 [Last Taken Unknown] Enalapril Maleate [Vasotec] 10 mg PO DAILY 03/27/15 [Last Taken Unknown] Metoprolol Succinate [Toprol Xl] 200 mg PO DAILY 03/27/15 [Last Taken Unknown] Furosemide [Lasix] 40 mg PO DAILY 05/25/15 [Last Taken Unknown] Atorvastatin Calcium [Lipitor] 20 mg PO DAILY 01/26/16 [Last Taken Unknown] Nitroglycerin [Nitrostat] 0.4 mg SL Q5MIN PRN 02/05/16 [Last Taken Unknown] Colchicine 0.6 mg PO BID #30 capsule 02/06/16 [Last Taken Unknown] Pantoprazole Sodium [Protonix] 40 mg PO HS 03/01/16 [Last Taken Unknown] Ranitidine HCl [Zantac] 300 mg PO QAM 03/01/16 [Last Taken Unknown] HYDROcodone/ACETAMINOPHEN [Hydrocodon-Acetaminophn 10-325] 1 each PO Q8H 5 Days #15 tablet 01/13/17 [Last Taken Unknown] Insulin Detemir [Levemir] 25 units SC HS 03/20/17 [Last Taken Unknown] Warfarin Sodium [Coumadin] 10 mg PO DAILY 03/20/17 [Last Taken Unknown] metFORMIN HCL [Glucophage Xr] 500 mg PO DAILY 03/20/17 [Last Taken Unknown] - History of Present Illness Narrative: Patient presents for shortness of breath for the past 12 hours at home. He denies any chest pains whatsoever. He denies any diaphoresis syncope or near syncopal episodes. He denies any cough. He has a history of DVTs and he also has a history of CHF. He has increased his furosemide intake for the past 24 hours however that his shortness of breath persists. Review of Systems - Review of Systems Constitutional: Present: fatigue EYE: Present: no symptoms reported ENT: Present: no symptoms reported Respiratory: Present: shortness of breath. Absent: cough, wheezing Cardiology: Present: no symptoms reported Gastrointestinal/Abdominal: Present: no symptoms reported Genitourinary: Present: no symptoms reported Musculoskeletal: Present: no symptoms reported Skin: Present: no symptoms reported - Patient's Past Medical History Patient History - Medical: GERD, Other Patient History - Cardiac/Respiratory: Arrhythmias, CHF, CVA/Stroke, Myocardial Infarction Patient History - Cancer: No Hx of Cancer Patient History - Surgical Procedures: Colonoscopy, Coronary Bypass Surgery, Cardiac stent, Pacemaker, Other Patient History - Other: None - Family History Father Family History - Medical: , Alzheimer's Disease Family History - Cardiac/Respiratory: No pertinent hx Family History - Cancer: No pertinent family hx Mother Family History - Medical: Family History - Cardiac/Respiratory: CHF, Myocardial Infarction Family History - Cancer: No pertinent family hx - Social History Living Situations: home Abuse History: No History of abuse Psych History: No pertinent hx Smoking Status: Former smoker Alcohol Use: none Drug Use: none - Immunizations Immunizations Up to Date: Yes Hx Pneumococcal Vaccination: Yes History of Influenza Vaccine: Yes Physical Exam - Physical Exam General Appearance: Present: wd/wn, alert, no apparent distress - patient does not appear to be in any respiratory distress however he is breathing rapidly his oxygen saturation is maintaining at 96% on room air but he feels short of breath. Head Exam: Present: normal inspection, no evidence of injury Eye Exam: Normal inspection: bilateral, PERRL: bilateral, EOMI: bilateral Ears, Nose, Throat: Present: normal ENT inspection, normal pharynx Neck: Present: normal inspection, nontender, supple Respiratory: Present: no respiratory distress, normal breath sounds, no accessory muscle use, chest nontender, lungs clear Cardiovascular/Chest: Present: regular rate, rhythm, no murmur, normal peripheral pulses Gastrointestinal/Abdominal: Present: normal bowel sounds, nontender, nondistended, soft, no organomegaly Back Exam: Present: normal inspection Extremity Exam: Present: other - there is minimal edema of both lower extremities however they are not pitting. Neurological Exam: Present: alert, oriented, normal mood/affect, no motor/ sensory deficits, straw baler II-XII nml as tested Skin Exam: Present: normal color, warm/dry ED Progress - Results and Orders Patient's Lab Results:: I have reviewed the patient's lab results. - Vital Signs Patient's Vital Signs:: I have reviewed the patient's vital signs. Vital Signs: Vital Signs 03/20/17 03/20/17 03/20/17 10:05 10:45 11:18 Temperature 37.1 C Pulse Rate 103 H 96 86 Respiratory 15 16 12 Rate Blood Pressure 138/91 128/83 117/86 O2 Sat by Pulse 95 96 97 Oximetry 03/20/17 12:04 Temperature 36.7 C Pulse Rate 110 H Respiratory 19 Rate Blood Pressure 125/76 O2 Sat by Pulse 97 Oximetry - Progress/Reassessment Chief Complaint: Dyspnea Plan - Plan Plan: This patient's d-dimer is elevated however CTA was negative for a pulmonary embolus. Patient's BNP is elevated at greater than 3400 where the last one was [address] Babb consulted in regards to admitting this patient for CHF exacerbation. Dr. Babb graciously accepted the patient Departure Clinical Impression: CHF exacerbation Qualifiers: Congestive heart failure type: unspecified congestive heart failure type Qualified Code(s): I50.9 - Heart failure, unspecified - Departure Disposition: [facility] Condition: Fair
[2017-03-20] MEDS ORDERED: FUROSEMIDE 10 MG/ML VIAL IV ONE (13:18)
--- NOTE | 2017-03-20 15:27 | HP ---
Chief Complaint - Chief Complaint Date of Service: 03/20/17 Time of Service: 15:22 Chief Complaint: shortness of breath History of Present Illness: Hi Zelaya, is a 62-year-old white male, with previous medical history of congestive heart failure ejection fraction of 25% coronary artery disease status post CABG, recent deep vein thrombosis, who was admitted on 03/20/2017 because of sudden shortness of breath. He was just recently discharged from [facility] a blood clot in his right femoral artery which was removed by vascular surgery. He had acute sudden shortness of breath last night and could not sleep well. He denied any chest pain, cough . fever or chills. He took extra doses of his Lasix but that did not help , so he went to our emergency room. In the emergency room the patient had CT scan of the chest following pulmonary embolism protocol and that did not show any pulmonary embolus. His BNP though was elevated at 3400. He was then admitted for acute exacerbation of his congestive heart failure. The patient said that he did not miss any of his medication but had potat o and ham for his dinner. - Patient's Past Medical History Patient History - Medical: GERD, Other Patient History - Cardiac/Respiratory: Arrhythmias, CHF, CVA/Stroke, Myocardial Infarction Patient History - Cancer: No Hx of Cancer Patient History - Surgical Procedures: Colonoscopy, Coronary Bypass Surgery, Cardiac stent, Other Patient History - Other: None - Family History Father Family History - Medical: , Alzheimer's Disease Family History - Cardiac/Respiratory: No pertinent hx Family History - Cancer: No pertinent family hx Mother Family History - Medical: Family History - Cardiac/Respiratory: CHF, Myocardial Infarction Family History - Cancer: No pertinent family hx - Social History Living Situations: spouse Abuse History: No History of abuse Psych History: No pertinent hx Smoking Status: Former smoker Have you smoked in the past 12 months: No Do you dip or chew tobacco: No Patient requests Smoking Cessation Consult: No Initiate information on Smoking Cessation: No Alcohol Use: none Drug Use: none - Immunizations Immunizations Up to Date: Yes Hx Pneumococcal Vaccination: Yes History of Influenza Vaccine: Yes Review Of Systems (GEN) - Review of Systems Generalized/Overall Review: Absent: Weakness, Chills, Fever EENTM: Present: No Symptoms Reported Respiratory: Present: Shortness of Breath, Orthopnea. Absent: Cough Cardiac: Present: Edema. Absent: Chest Pain, Palpitations Abdominal: Absent: Nausea, Vomiting Genitourinary: Absent: Urgency, Frequency Musculoskeletal: Present: Joint Pain Immunizations: IMMUNIZATION HX Immunizations Up to Date Yes History of Influenza Vaccine Yes Hx Pneumococcal Vaccination Yes Allergies/Adverse Reactions: Allergies Allergy/AdvReac Type Severity Reaction Status Date / Time nitroglycerin AdvReac told not Verified 03/20/17 12:54 to take by his neurologist, can take in an emergenc Home Medications: HOME MEDICATIONS Aspirin [Aspirin Enteric Coated] 81 mg PO DAILY 03/27/15 [Last Taken Unknown] Metoprolol Succinate [Toprol Xl] 200 mg PO DAILY 03/27/15 [Last Taken Unknown] Furosemide [Lasix] 40 mg PO DAILY 05/25/15 [Last Taken Unknown] Atorvastatin Calcium [Lipitor] 20 mg PO DAILY 01/26/16 [Last Taken Unknown] Nitroglycerin [Nitrostat] 0.4 mg SL Q5MIN PRN 02/05/16 [Last Taken Unknown] Colchicine 0.6 mg PO BID #30 capsule 02/06/16 [Last Taken Unknown] Pantoprazole Sodium [Protonix] 40 mg PO HS 03/01/16 [Last Taken Unknown] Ranitidine HCl [Zantac] 300 mg PO QAM 03/01/16 [Last Taken Unknown] HYDROcodone/ACETAMINOPHEN [Hydrocodon-Acetaminophn 10-325] 1 each PO Q8H 5 Days #15 tablet 01/13/17 [Last Taken Unknown] Enalapril Maleate [Vasotec] 5 mg PO BID 03/20/17 [Last Taken Unknown] Insulin Detemir [Levemir] 25 units SC HS 03/20/17 [Last Taken Unknown] Warfarin Sodium [Coumadin] 10 mg PO DAILY 03/20/17 [Last Taken Unknown] metFORMIN HCL [Glucophage Xr] 500 mg PO DAILY 03/20/17 [Last Taken Unknown] Exam - Exam Vital Signs: Vital Signs - Last Taken Temp 36.3 C L 03/20/17 14:07 Pulse 110 H 03/20/17 14:31 Resp 16 03/20/17 14:07 BP 130/76 03/20/17 14:07 Pulse Ox 98 03/20/17 14:07 Constitutional: Present: Alert, Oriented x3, Cooperative ENT Exam: Present: hearing grossly normal Eye Exam: bilateral eye: normal inspection, PERRL, EOMI Neck: Present: supple Respiratory: Present: decreased breath sounds, No rales, No wheezing Cardiovascular/Chest: Present: no murmur - Therapy, JVD, irregularly irregular Abdomen: Present: Normal bowel sounds, soft, nontender, nondistended Extremity: Present: no calf tenderness, lower extremity edema Diagnostic Studies: Laboratory Results WBC 9.3 K/mm3 (4.0-10.5) 03/20/17 10:23 RBC 4.58 M/mm3 (4.7-6.0) L 03/20/17 10:23 Hgb 14.9 gm/dL (13.5-18.0) 03/20/17 10:23 Hct 43.0 % (42.0-52.0) 03/20/17 10:23 MCV 93.9 fl (78-100) 03/20/17 10:23 MCH 32.5 pg (27-31) H 03/20/17 10:23 MCHC 34.7 g/dl (32-36) 03/20/17 10:23 RDW 13.1 % (11.5-14.0) 03/20/17 10:23 Plt Count 293 K/mm3 (150-450) 03/20/17 10:23 MPV 9.6 fl (6.0-9.5) H 03/20/17 10:23 Immature Gran % (Auto) 0.40 % (0.001-0.429) 03/20/17 10:23 Immature Gran # (Auto) 0.04 K/mm3 (0.000-0.0310) H 03/20/17 10:23 Neutrophils % 61.4 % (42-75.0) 03/20/17 10:23 Lymphocytes % 26.0 % (20-51) 03/20/17 10:23 Monocytes % 8.7 % (0.0-9) 03/20/17 10:23 Eosinophils % 2.7 % (0.0-3.0) 03/20/17 10:23 Basophils % 0.8 % (0.0-1.0) 03/20/17 10:23 Nucleated RBC % 0.0 k/mm3 (0-1) 03/20/17 10:23 Neutrophils # 5.7 K/mm3 (1.3-6.0) 03/20/17 10:23 Lymphocytes # 2.4 k/mm3 (1.5-3.5) 03/20/17 10:23 Monocytes # 0.8 k/mm3 (0.0-1.0) 03/20/17 10:23 Eosinophils # 0.3 k/mm3 (0.0-0.7) 03/20/17 10:23 Absolute Basophils 0.1 k/mm3 (0.0-0.1) 03/20/17 10:23 PT 37.5 Seconds (9.0-11.0) H 03/20/17 10:23 INR (Anticoag Therapy) 3.70 INR (0.90-1.10) H 03/20/17 10:23 D-Dimer 1.71 mg/L (0.19-0.49) H 03/20/17 10:23 Sodium 137 mmol/L (132-142) 03/20/17 10:23 Plasma Sodium 138 mmol/L (130-142) 03/20/17 10:23 Potassium 3.8 mmol/L (3.4-4.6) 03/20/17 10:23 Chloride 99 mmol/L (97-106) 03/20/17 10:23 Carbon Dioxide 28.9 mmol/L (24-32.6) 03/20/17 10:23 Anion Gap 12.9 mmol/L (6.8-13.8) 03/20/17 10:23 BUN 19 mg/dL (6-23) 03/20/17 10:23 Creatinine 1.18 mg/dL (0.4-1.4) 03/20/17 10:23 Est GFR (Non-Af Amer) 66 mL/min (60-130) 03/20/17 10:23 BUN/Creatinine Ratio 16.1 (9.0-21.6) 03/20/17 10:23 Random Glucose 135 mg/dL (70-110) H 03/20/17 10:23 Calcium 9.3 mg/dL (7.9-10.9) 03/20/17 10:23 Calcium Adj for Albumin 9.5 mg/dL (8.4-10.2) 03/20/17 10:23 Total Bilirubin 0.8 mg/dL (0.0-1.1) 03/20/17 10:23 AST 70 U/L (0-48) H 03/20/17 10:23 ALT 83 U/L (19-67) H 03/20/17 10:23 Alkaline Phosphatase 116 U/L (50-170) 03/20/17 10:23 CK-MB (CK-2) 1.7 ng/mL (0.0-9.0) 03/20/17 10:23 Troponin I 0.053 ng/ml (0.00-0.10) 03/20/17 10:23 B-Natriuretic Peptide 3401 pg/mL (5-175) H 03/20/17 10:23 Total Protein 7.9 gm/dL (6.2-8.2) 03/20/17 10:23 Albumin 3.3 gm/dl (3.4-5.0) L 03/20/17 10:23 Assessment/Plan - Assessment/Plan (1) Acute on chronic systolic (congestive) heart failure Assessment: will diurese him with IV lasix today and possible discharge tomorrow. Echo was christiano agarwal in October of 2016 and it showed EF of 25 %. 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
[2017-03-20] MEDS ORDERED: NITROGLYCERIN 0.4 MG/TAB BTL SL PRN (15:39)
[2017-03-20] MEDS ORDERED: HYDROcodone/ACETAMINOPHEN 1 EACH TABLET PO SCH (15:45)
[2017-03-20] MEDS: POTASSIUM CHLORIDE 20 MEQ TABLET.SA PO SCH ×2 (16:11→16:13)
[2017-03-20] MEDS ORDERED: HYDROcodone/ACETAMINOPHEN 1 EACH TABLET PO PRN (16:20)
[2017-03-20] MEDS: ENALAPRIL MALEATE 5 MG TABLET PO SCH (20:36)
[2017-03-20] MEDS: COLCHICINE 0.6 MG TABLET PO SCH (20:36)
[2017-03-20] MEDS: FUROSEMIDE 10 MG/ML VIAL IV SCH (20:37)
[2017-03-20] MEDS ORDERED: INSULIN DETEMIR 100 UNITS/ML VIAL SC SCH (21:00)
[2017-03-20] MEDS ORDERED: PANTOPRAZOLE SODIUM 40 MG TABLET.EC PO SCH (21:00)
[2017-03-20] MEDS ORDERED: TORSEMIDE 20 MG TABLET PO SCH (21:00)
[2017-03-20] MEDS ORDERED: ROSUVASTATIN CALCIUM 10 MG TABLET PO SCH (21:00)
--- NOTE | 2017-03-21 05:09 | DS ---
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 Problem: Chronic Qualifiers: Atrial fibrillation type: persistent Qualified Code(s): I48.1 - Persistent atrial fibrillation Description of Stay: Admission HPI by Dr. Дмитрий Babb. Hi Zelaya, is a 62-year-old white male, with previous medical history of congestive heart failure ejection fraction of 25% coronary artery disease status post CABG, recent deep vein thrombosis, who was admitted on 03/20/2017 because of sudden shortness of breath. He was just recently discharged from [facility] a blood clot in his right femoral artery which was removed by vascular surgery. He had acute sudden shortness of breath last night and could not sleep well. He denied any chest pain, cough . fever or chills. He took extra doses of his Lasix but that did not help , so he went to our emergency room. In the emergency room the patient had CT scan of the chest following pulmonary embolism protocol and that did not show any pulmonary embolus. His BNP though was elevated at 3400. He was then admitted for acute exacerbation of his congestive heart failure. The patient said that he did not miss any of his medication but had potat o and ham for his dinner. Hospital Problem/s 1.) Acute Exacerbation of CHF. Pt was admitted for an overnight observation stay due to SOB. The CXR did not have any findings to suggest fluid overload/CHF. He did not require any oxygen supplementation during the stay. His BNP was elevated at 3401 on admission and on morning of DC, it was down to 1141. He received a total of 200mg of IV Lasix and he diuresed nearly 3L. He felt less SOB on the morning of discharge. His electrolytes were in NR. He was determined to be in a stable state to be discharged and will follow-up with his PCP next week. He will resume his home dose of Lasix 40 mg as needed upto 160mg per arrangements with his Cardiology Dr. Peguero. Procedures Performed: none Discharge Disposition: Home self care Disposition: Home self-care Condition: Good Discharge Activity: Activity as tolerated Discharge Diet: Consistent carbs, Low salt Problem Oriented Discharge Instructions to Patient/Family: CHF Patient Instructions Additional Patient Instructions (free text): Follow-up with Dr. Babb next week. Complete Home Medications List: Complete Home Medication List: Aspirin [Aspirin Enteric Coated] 81 mg PO DAILY 03/27/15 Metoprolol Succinate [Toprol Xl] 200 mg PO DAILY 03/27/15 Furosemide [Lasix] 40 mg PO DAILY 05/25/15 Atorvastatin Calcium [Lipitor] 20 mg PO DAILY 01/26/16 Nitroglycerin [Nitrostat] 0.4 mg SL Q5MIN PRN 02/05/16 Colchicine 0.6 mg PO BID #30 capsule 02/06/16 Pantoprazole Sodium [Protonix] 40 mg PO HS 03/01/16 Ranitidine HCl [Zantac] 300 mg PO QAM 03/01/16 HYDROcodone/ACETAMINOPHEN [Hydrocodon-Acetaminophn 10-325] 1 each PO Q8H 5 Days #15 tablet 01/13/17 Enalapril Maleate [Vasotec] 5 mg PO BID 03/20/17 Insulin Detemir [Levemir] 25 units SC HS 03/20/17 Warfarin Sodium [Coumadin] 10 mg PO DAILY 03/20/17 metFORMIN HCL [Glucophage Xr] 500 mg PO DAILY 03/20/17
[2017-03-21 06:06] LABS: Hematocrit 41.4 % (42.0-52.0); Hemoglobin 14.5 gm/dL (13.5-18.0); Mean Cell Volume 92.8 fl (78-100); Mean Corpuscular Hemoglobin 32.5 pg (27-31); Mean Platelet Volume 9.6 fl (6.0-9.5); Neutrophil % 44.2 % (42-75.0); Platelet Count 252 K/mm3 (150-450); Red Blood Count 4.46 M/mm3 (4.7-6.0); Red Cell Distribution Width 12.9 % (11.5-14.0); White Blood Count 6.7 K/mm3 (4.0-10.5)
[2017-03-21 06:29] LABS: Anion Gap 11.2 mmol/L (6.8-13.8); BUN/Creatinine Ratio 18.2 (9.0-21.6); Calcium * 9.4 mg/dL (7.9-10.9); Carbon Dioxide 31.5 mmol/L (24-32.6); Estimated Creat Clear 75.7; Potassium 3.7 mmol/L (3.4-4.6)
[2017-03-21 06:50] LABS: Prothrombin Time (Patient) 30.9 Seconds (9.0-11.0)
[2017-03-21 06:51] LABS: INR 3.06 INR (0.90-1.10)
[2017-03-21 07:06] VITALS: BP 128/84
[2017-03-21] MEDS: COLCHICINE 0.6 MG TABLET PO SCH (08:49)
[2017-03-21] MEDS: ENALAPRIL MALEATE 5 MG TABLET PO SCH (08:50)
[2017-03-21] MEDS: POTASSIUM CHLORIDE 20 MEQ TABLET.SA PO SCH (08:50)
[2017-03-21] MEDS ORDERED: METOPROLOL SUCCINATE 100 MG TABLET.SA PO SCH (09:00)
[2017-03-21] MEDS ORDERED: FAMOTIDINE 20 MG TABLET PO SCH (09:00)
[2017-03-21] MEDS ORDERED: ASPIRIN 81 MG TABLET.DR PO SCH (09:00)
[2017-03-21] MEDS: FUROSEMIDE 10 MG/ML VIAL IV SCH (09:16)
== END 2017-03-21 10:50 | disposition home health service (06) ==
LOC: ER 10:04 → MS 12:23
PROVIDERS: ADMIT Internal Medicine; ATTEND Internal Medicine
DX: I50.23 Acute on chronic systolic (congestive) heart failure (principal); I74.3 Embolism and thrombosis of arteries of the lower extremities; I10 Essential (primary) hypertension; I48.91 Unspecified atrial fibrillation; M1A.029 Idiopathic chronic gout, unspecified elbow; I65.29 Occlusion and stenosis of unspecified carotid artery; E78.5 Hyperlipidemia, unspecified; Z95.1 Presence of aortocoronary bypass graft; Z86.73 Personal history of transient ischemic attack (TIA), and cerebral infarction without residual deficits; Z68.36 Body mass index [BMI] 36.0-36.9, adult; Z79.01 Long term (current) use of anticoagulants; Z79.84 Long term (current) use of oral hypoglycemic drugs; Z87.891 Personal history of nicotine dependence
CPT/HCPCS: 36415; 71020; 71275; 80048; 80053; 82553; 83880; 84484; 85025; 85379; 85610; 93005; 96372; 96374; 96376; 99283; G0378

== ENCOUNTER 2017-04-08 19:10 | Emergency (ER) | payer MEDICARE, BC ==
--- NOTE | 2017-04-08 19:52 | ERNOTE ---
<Colt Martin - Last Filed: 04/08/17 19:47> Dyspnea - Date Date of Service: 04/08/17 - General Presenting Symptoms: shortness of breath Time Seen by Provider: 04/08/17 19:41 Source: patient Exam Limitations: no limitations - Immun/Allergies/Home Medications Immunizations: IMMUNIZATION HX Immunizations Up to Date Yes History of Influenza Vaccine Yes Hx Pneumococcal Vaccination Yes Allergies/Adverse Reactions: Allergies nitroglycerin Adverse Reaction (Verified 03/20/17 12:54) told not to take by his neurologist, can take in an emergenc Contraindication by Dr. Gomez (neurologist [facility]), can take in case of an emergency Home Medications: HOME MEDICATIONS Aspirin [Aspirin Enteric Coated] 81 mg PO DAILY 03/27/15 [Last Taken Unknown] Metoprolol Succinate [Toprol Xl] 200 mg PO DAILY 03/27/15 [Last Taken Unknown] Furosemide [Lasix] 40 mg PO DAILY 05/25/15 [Last Taken Unknown] Atorvastatin Calcium [Lipitor] 20 mg PO DAILY 01/26/16 [Last Taken Unknown] Nitroglycerin [Nitrostat] 0.4 mg SL Q5MIN PRN 02/05/16 [Last Taken Unknown] Colchicine 0.6 mg PO BID #30 capsule 02/06/16 [Last Taken Unknown] Pantoprazole Sodium [Protonix] 40 mg PO HS 03/01/16 [Last Taken Unknown] Ranitidine HCl [Zantac] 300 mg PO QAM 03/01/16 [Last Taken Unknown] Albuterol Sulfate [Ventolin Hfa] 8 gm IH QID PRN #1 [id number] 04/08/17 [Last Taken Unknown] Azithromycin 250 mg PO DAILY #4 tablet 04/08/17 [Last Taken Unknown] Clopidogrel Bisulfate [Plavix] 75 mg PO DAILY 04/08/17 [Last Taken Unknown] Dabigatran Etexilate Mesylate [Pradaxa] 150 mg PO DAILY 04/08/17 [Last Taken Unknown] oxyCODONE HCL/ACETAMINOPHEN [Percocet 5-325 mg Tablet] 1 each PO PRN PRN [Last Taken Unknown] - History of Present Illness Narrative: Patient presents to the ED with SOB. he relates Increasing SOB all through the day today. his weight has been stable up until yesterday. No fever. Has been having cough for the last approx 1 week. Has taken extra lasix today but had maxed out on that so came to the ED by EMS. Noncardiac chest pain. No vomiting but some nausea. SOB worse when he tries to sleep. Severity: moderate Treatment BRANDS EDITOR: paramedics Initiating event: Reports: upper resp illness Frequency of episodes: Reports: frequent episodes Modifying Factors - (Improves): Reports: nothing Modifying Factors (Worsens): Reports: other - trying to sleep\ Associated Symptoms-Dyspnea: Reports: cough. Denies: fever/chills, chest pain/ discomfort Prior Treatment: Denies: recently hospitalized Review of Systems - Review of Systems Constitutional: Absent: fever ENT: Absent: sore throat Respiratory: Present: shortness of breath, cough Cardiology: Absent: chest pain Gastrointestinal/Abdominal: Present: nausea. Absent: abdominal pain Genitourinary: Absent: dysuria Skin: Absent: rash Neurological: Absent: weakness, other - left arm tingles at times All Other Systems: All systems neg except as marked - Patient's Past Medical History Patient History - Medical: GERD, Other Patient History - Cardiac/Respiratory: Arrhythmias, CHF, CVA/Stroke, Myocardial Infarction Patient History - Cancer: No Hx of Cancer Patient History - Surgical Procedures: Colonoscopy, Coronary Bypass Surgery, Cardiac stent, Other Patient History - Other: None - Family History Father Family History - Medical: , Alzheimer's Disease Family History - Cardiac/Respiratory: No pertinent hx Family History - Cancer: No pertinent family hx Mother Family History - Medical: Family History - Cardiac/Respiratory: CHF, Myocardial Infarction Family History - Cancer: No pertinent family hx - Social History Living Situations: home Abuse History: No History of abuse Psych History: No pertinent hx Smoking Status: Former smoker Alcohol Use: none Drug Use: none - Immunizations Immunizations Up to Date: Yes Hx Pneumococcal Vaccination: Yes History of Influenza Vaccine: Yes Physical Exam - Physical Exam General Appearance: Present: alert, no apparent distress Head Exam: Present: normal inspection, no evidence of injury Eye Exam: Normal inspection: bilateral, PERRL: bilateral Ears, Nose, Throat: Present: normal ENT inspection Neck: Present: normal inspection Respiratory: Present: no respiratory distress, rhonchi Cardiovascular/Chest: Present: regular rate, rhythm, normal peripheral pulses Gastrointestinal/Abdominal: Present: normal bowel sounds, nontender, nondistended, soft Back Exam: Absent: CVA tenderness (R), CVA tenderness (L) Extremity Exam: Present: other - +1 pretibial edema. no DVT findings Neurological Exam: Present: alert, normal mood/affect, no motor/sensory deficits Skin Exam: Present: normal color, warm/dry ED Progress - Vital Signs Patient's Vital Signs:: I have reviewed the patient's vital signs. Vital Signs: Vital Signs 04/08/17 04/08/17 19:16 19:39 Temperature 38.2 C H Pulse Rate 93 85 Respiratory 16 21 H Rate Blood Pressure 125/73 110/65 O2 Sat by Pulse 96 96 Oximetry - EKG EKG read: Interp. by me EKG Comments: A fib controlled rate. RBBB. No clear evidence of STEMI. - Progress/Reassessment Chief Complaint: Dyspnea - Transfer of Care Physician Sign Out: Colt Martin Receiving Physician: Usama Royal Pending Results: Labs, X-ray results Expected Disposition: Admit Departure Clinical Impression: SOB (shortness of breath) Acute bronchitis Qualifiers: Bronchitis organism: unspecified organism Qualified Code(s): J20.9 - Acute bronchitis, unspecified - Departure Disposition: Home Follow Up Needed Condition: Good Instructions: Acute Bronchitis, [id number] Additional Instructions: See your regular doctor this week. Take antibiotics until gone, use inhaler as needed. have your INR checked in 3-4 days. Prescriptions: Albuterol Sulfate [Ventolin Hfa] 8 gm IH QID PRN #1 [id number].[email or web address] PRN Reason: Shortness Of Breath Azithromycin 250 mg PO DAILY #4 tablet <Usmaa Royal - Last Filed: 04/10/17 02:51> Dyspnea - Immun/Allergies/Home Medications Immunizations: IMMUNIZATION HX Immunizations Up to Date Yes History of Influenza Vaccine Yes Hx Pneumococcal Vaccination Yes ED Progress - Results and Orders Patient's Lab Results:: I have reviewed the patient's lab results. Results and Orders: Laboratory Tests 04/08/17 04/08/17 04/08/17 19:58 20:10 20:10 WBC 4.5 Hgb 14.2 Hct 40.4 L Plt Count 127 L PT INR (Anticoag Therapy) Sodium 137 Potassium 3.7 Chloride 99 Carbon Dioxide 23.6 L Anion Gap 18.1 H BUN 22 BUN/Creatinine Ratio 16.5 Random Glucose 141 H Lactic Acid, Venous Calcium 8.4 Total Bilirubin 0.9 AST 63 H ALT 87 H Alkaline Phosphatase 93 Troponin I 0.043 B-Natriuretic Peptide 1931 H Total Protein 6.7 Albumin 3.4 Urine Color Iris Urine Appearance Clear Urine pH 5.5 Ur Specific [place] >=1.030 Urine Protein 30 H Urine Glucose (UA) Negative Urine Ketones Negative Urine Blood Negative Urine Nitrate Negative Urine Bilirubin 1 H Urine Ictotest Negative Prot Sulfosalicylic Acd 1+ Urine Urobilinogen Normal Ur Leukocyte Esterase Negative Urine RBC None seen Urine WBC Trace Ur Epithelial Cells None seen Urine Bacteria Trace Hyaline Casts 0-5 H Urine Culture Comments No culture indicated 04/08/17 04/08/17 20:10 20:10 WBC Hgb Hct Plt Count PT 14.4 H INR (Anticoag Therapy) 1.43 H Sodium Potassium Chloride Carbon Dioxide Anion Gap BUN BUN/Creatinine Ratio Random Glucose Lactic Acid, Venous 1.9 Calcium Total Bilirubin AST ALT Alkaline Phosphatase Troponin I B-Natriuretic Peptide Total Protein Albumin Urine Color Urine Appearance Urine pH Ur Specific [place] Urine Protein Urine Glucose (UA) Urine Ketones Urine Blood Urine Nitrate Urine Bilirubin Urine Ictotest Prot Sulfosalicylic Acd Urine Urobilinogen Ur Leukocyte Esterase Urine RBC Urine WBC Ur Epithelial Cells Urine Bacteria Hyaline Casts Urine Culture Comments - Vital Signs Patient's Vital Signs:: I have reviewed the patient's vital signs. Vital Signs: Vital Signs 04/08/17 04/08/17 04/08/17 19:16 19:39 20:00 Temperature 38.2 C H Pulse Rate 93 85 85 Respiratory 16 21 H 18 Rate Blood Pressure 125/73 110/65 111/69 O2 Sat by Pulse 96 96 93 Oximetry 04/08/17 04/08/17 04/08/17 20:37 21:14 21:58 Temperature 37.8 C H 37.8 C H Pulse Rate 64 96 100 Respiratory 15 19 17 Rate Blood Pressure 155/65 119/72 116/86 O2 Sat by Pulse 96 98 96 Oximetry - X-Ray X-Ray #1 X-Ray: chest Interpretation: Reviewed by me X-ray Comments: ventricular pacemaker noted. no effusion or infiltrate - Progress/Reassessment Progress:: Improved Progress Note-Subjective: 04/08/17 22:12 pt states he feels much better, O2 sats 95% without supplimental O2.
[2017-04-08 20:19] LABS: Hematocrit 40.4 % (42.0-52.0); Hemoglobin 14.2 gm/dL (13.5-18.0); Mean Corpuscular Hgb Conc 35.1 g/dl (32-36); Mean Platelet Volume 10.2 fl (6.0-9.5); Neutrophil # 2.7 K/mm3 (1.3-6.0); Neutrophil % 60.2 % (42-75.0); Platelet Count 127 K/mm3 (150-450); Red Blood Count 4.44 M/mm3 (4.7-6.0); Red Cell Distribution Width 13.6 % (11.5-14.0); White Blood Count 4.5 K/mm3 (4.0-10.5)
[2017-04-08 20:32] LABS: Prothrombin Time (Patient) 14.4 Seconds (9.0-11.0)
[2017-04-08 20:42] LABS: INR 1.43 INR (0.90-1.10); Troponin I 0.043 ng/ml (0.00-0.10)
[2017-04-08 20:46] LABS: Albumin * 3.4 gm/dl (3.4-5.0); Anion Gap 18.1 mmol/L (6.8-13.8); BUN/Creatinine Ratio 16.5 (9.0-21.6); Bilirubin, Total 0.9 mg/dL (0.0-1.1); Ca. Corrected For Albumin 8.6 mg/dL (8.4-10.2); Calcium * 8.4 mg/dL (7.9-10.9); Carbon Dioxide 23.6 mmol/L (24-32.6); Potassium 3.7 mmol/L (3.4-4.6); Total Protein 6.7 gm/dL (6.2-8.2)
[2017-04-08 21:22] LABS: Urine Bilirubin 1 mg/dl (NEGATIVE); Urine Blood Negative /ul (NEGATIVE); Urine Ketone Negative (NEGATIVE); Urine Nitrite Negative (NEGATIVE); Urine Protein 30 mg/dL (NEGATIVE); Urine Specific Gravity >=1.030 SP.GR. (1.005-1.030); Urine Urobilinogen Normal (NORMAL); Urine pH 5.5 pH (5.0-7.0)
[2017-04-08 21:35] LABS: Urine Appearance Clear; Urine Color Amber; Urine RBC None Seen /hpf (0-5); Urine WBC TRACE /hpf (0-5)
[2017-04-08 21:36] LABS: Urine Bacteria TRACE; Urine Hyaline Cast 0-5 /LPF
[2017-04-08] MEDS ORDERED: AZITHROMYCIN 250 MG TABLET PO ONE (22:17)
[2017-04-08] MEDS ORDERED: AZITHROMYCIN 250 MG TABLET ONE (22:37)
[2017-04-08 22:52] VITALS: BP 119/92
== END 2017-04-08 22:54 | disposition home or self-care (01) ==
LOC: ER 19:10
DX: J20.9 Acute bronchitis, unspecified (principal); R06.02 Shortness of breath; Z95.5 Presence of coronary angioplasty implant and graft; I25.2 Old myocardial infarction; Z87.891 Personal history of nicotine dependence; I50.9 Heart failure, unspecified; I63.9 Cerebral infarction, unspecified; K21.9 Gastro-esophageal reflux disease without esophagitis

== ENCOUNTER 2017-05-28 19:10 | Emergency (ER) | payer MEDICARE, BC ==
[2017-05-28] MEDS ORDERED: METOPROLOL TARTRATE 1 MG/ML AMPUL IV ONE ×2 (19:16→19:30)
[2017-05-28] MEDS ORDERED: ASPIRIN 81 MG TAB.CHEW PO ONE (19:16)
--- NOTE | 2017-05-28 19:24 | ERNOTE ---
Chest Pain/Cardiac HPI Date of Service: 05/28/17 Time Seen by Provider: 05/28/17 19:12 Source: patient Exam Limitations: no limitations Immunizations: IMMUNIZATION HX Immunizations Up to Date Yes History of Influenza Vaccine Yes Hx Pneumococcal Vaccination Yes Allergies/Adverse Reactions: Allergies nitroglycerin Adverse Reaction (Verified 05/28/17 19:23) told not to take by his neurologist, can take in an emergenc Contraindication by Dr. Gomez (neurologist [facility]), can take in case of an emergency Home Medications: HOME MEDICATIONS Aspirin [Aspirin Enteric Coated] 81 mg PO DAILY 03/27/15 [Last Taken Unknown] Metoprolol Succinate [Toprol Xl] 200 mg PO DAILY 03/27/15 [Last Taken Unknown] Furosemide [Lasix] 40 mg PO DAILY 05/25/15 [Last Taken Unknown] Atorvastatin Calcium [Lipitor] 20 mg PO DAILY 01/26/16 [Last Taken Unknown] Nitroglycerin [Nitrostat] 0.4 mg SL Q5MIN PRN 02/05/16 [Last Taken Unknown] Colchicine 0.6 mg PO BID #30 capsule 02/06/16 [Last Taken Unknown] Pantoprazole Sodium [Protonix] 40 mg PO HS 03/01/16 [Last Taken Unknown] Ranitidine HCl [Zantac] 300 mg PO QAM 03/01/16 [Last Taken Unknown] Enalapril Maleate [Vasotec] 5 mg PO BID 05/04/17 [Last Taken Unknown] Insulin Detemir [Levemir] 25 units SC HS 05/04/17 [Last Taken Unknown] Warfarin Sodium [Coumadin] 5 mg PO DAILY 05/04/17 [Last Taken Unknown] metFORMIN HCL [Metformin HCl ER] 500 mg PO DAILY 05/04/17 [Last Taken Unknown] Hydrocodone-Acetamin 10-325 mg 1 tab PO TID PRN 05/08/17 [Last Taken Unknown] Narrative: Pt. comes in with c/o chest pain and SOB intermittently for 5hours. Pt. denies any swelling, fever, NVD, alleviating or aggravating factors. Pt. states that he only took half of his metoprolol today. Pt. 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 Review of Systems - Review of Systems Constitutional: Present: no symptoms reported. Absent: fever, chills, weakness , fatigue, malaise EYE: Present: no symptoms reported ENT: Present: no symptoms reported Respiratory: Present: shortness of breath. Absent: cough, wheezing Cardiology: Present: chest pain, palpitations. Absent: edema Gastrointestinal/Abdominal: Present: no symptoms reported. Absent: nausea, vomiting, diarrhea Genitourinary: Present: no symptoms reported Musculoskeletal: Present: no symptoms reported. Absent: back pain, joint pain Skin: Present: no symptoms reported. Absent: rash, change in hair/nails Neurological: Present: no symptoms reported. Absent: headache, dizziness/light- headedness, numbness, tingling All Other Systems: All systems neg except as marked - Patient's Past Medical History Patient History - Medical: Anxiety, GERD Patient History - Cardiac/Respiratory: Atrial Fibrillation, Arrhythmias, CHF, CVA/Stroke, Myocardial Infarction Patient History - Cancer: No Hx of Cancer Patient History - Surgical Procedures: Colonoscopy, Coronary Bypass Surgery, Cardiac stent, Other Patient History - Other: None - Family History Father Family History - Medical: , Alzheimer's Disease Family History - Cardiac/Respiratory: No pertinent hx Family History - Cancer: No pertinent family hx Mother Family History - Medical: Family History - Cardiac/Respiratory: CHF, Myocardial Infarction Family History - Cancer: No pertinent family hx - Social History Abuse History: No History of abuse Psych History: No pertinent hx - Immunizations Immunizations Up to Date: Yes Hx Pneumococcal Vaccination: Yes History of Influenza Vaccine: Yes Physical Exam - Physical Exam General Appearance: Present: wd/wn, alert, no apparent distress Head Exam: Present: normal inspection, no evidence of injury Eye Exam: Normal inspection: bilateral Ears, Nose, Throat: Present: normal ENT inspection, normal pharynx Neck: Present: normal inspection, nontender, supple, full range of motion. Absent: lymphadenopathy (R), lymphadenopathy (L) Respiratory: Present: no respiratory distress, normal breath sounds, no accessory muscle use, chest nontender, lungs clear Cardiovascular/Chest: Present: regular rate, rhythm, no murmur, normal peripheral pulses Gastrointestinal/Abdominal: Present: normal bowel sounds, nontender, nondistended, soft, no organomegaly Back Exam: Present: normal inspection Extremity Exam: Present: normal inspection Neurological Exam: Present: alert, oriented, normal mood/affect, no motor/ sensory deficits Skin Exam: Present: normal color, warm/dry. Absent: pallor, skin rash ED Progress - Date and Time Seen: Date and Time: 05/28/17 20:17 Pt. HR and SOB improved with lopressor but still having intermittent CP so will try GI cocktail again as that worked well for him last time. 05/28/17 21:38 Pt. pain is resolved with GI cocktail so feel that this is likely GERD and have once again offerred admission to rule out NE but he feels that it is not his heart and I feel that this is unlikely as well so will send home. - Results and Orders Patient's Lab Results:: I have reviewed the patient's lab results. Results and Orders: Abnormal Lab Results 05/28/17 05/28/17 05/28/17 Range/Units 19:38 19:38 19:38 RBC 4.52 L (4.7-6.0) M/mm3 Hct 41.8 L (42.0-52.0) % MCH 32.3 H (27-31) pg MPV 9.6 H (6.0-9.5) fl Eosinophils % 3.1 H (0.0-3.0) % PT 26.7 H (9.0-11.0) Seconds INR (Anticoag Therapy) 2.64 H (0.90-1.10) INR PTT (Phillips) 33.3 H (24-32) Seconds BUN 24 H (6-23) mg/dL Est GFR (Non-Af Amer) 58 L (60-130) mL/min Random Glucose 124 H (70-110) mg/dL B-Natriuretic Peptide 1377 H (5-175) pg/mL GFR and BNP within range for pt. - Vital Signs Patient's Vital Signs:: I have reviewed the patient's vital signs. - EKG EKG: atrial fibrillation, RBBB, other - RVR EKG read: Interp. by me - X-Ray X-Ray #1 X-Ray: chest Interpretation: Reviewed by me X-ray Comments: No acute CP process. Departure Clinical Impression: GERD (gastroesophageal reflux disease) Qualifiers: Esophagitis presence: with esophagitis Qualified Code(s): K21.0 - Gastro- esophageal reflux disease with esophagitis Atrial fibrillation Qualifiers: Atrial fibrillation type: chronic Qualified Code(s): I48.2 - Chronic atrial fibrillation - Departure Disposition: Home self-care Condition: Good Instructions: Heartburn, [id number] Additional Instructions: Please follow up with primary provider in 2-3 days.
[2017-05-28] MEDS ORDERED: ASPIRIN 81 MG TAB.CHEW ONE (19:30)
[2017-05-28 19:41] LABS: Hematocrit 41.8 % (42.0-52.0); Hemoglobin 14.6 gm/dL (13.5-18.0); Mean Cell Volume 92.5 fl (78-100); Mean Corpuscular Hemoglobin 32.3 pg (27-31); Mean Corpuscular Hgb Conc 34.9 g/dl (32-36); Mean Platelet Volume 9.6 fl (6.0-9.5); Neutrophil # 3.5 K/mm3 (1.3-6.0); Neutrophil % 48.2 % (42-75.0); Platelet Count 180 K/mm3 (150-450); Red Blood Count 4.52 M/mm3 (4.7-6.0); Red Cell Distribution Width 13.7 % (11.5-14.0); White Blood Count 7.2 K/mm3 (4.0-10.5)
[2017-05-28 19:55] LABS: Prothrombin Time (Patient) 26.7 Seconds (9.0-11.0)
[2017-05-28 19:57] LABS: INR 2.64 INR (0.90-1.10); Partial Thrombolplastin Time 33.3 Seconds (24-32)
[2017-05-28 20:02] LABS: Troponin I 0.057 ng/ml (0.00-0.10)
[2017-05-28 20:03] LABS: Albumin * 3.5 gm/dl (3.4-5.0); Anion Gap 13.7 mmol/L (6.8-13.8); BUN/Creatinine Ratio 18.2 (9.0-21.6); Bilirubin, Total 0.7 mg/dL (0.0-1.1); Calcium * 8.9 mg/dL (7.9-10.9); Carbon Dioxide 28.4 mmol/L (24-32.6); Potassium 4.1 mmol/L (3.4-4.6); Total Protein 7.1 gm/dL (6.2-8.2)
[2017-05-28] MEDS ORDERED: LIDOCAINE HCL 20 ML UDC PO ONE (20:17)
[2017-05-28] MEDS ORDERED: MAG HYDROX/ALUMINUM HYD/SIMETH 30 ML UDC PO ONE (20:17)
[2017-05-28] MEDS ORDERED: SUCRALFATE 1 G/10 ML UDC PO ONE (20:17)
[2017-05-28] MEDS ORDERED: NITROGLYCERIN 0.4 MG/TAB BTL SL ONE (21:08)
[2017-05-28 21:15] VITALS: BP 110/84
== END 2017-05-28 21:55 | disposition home or self-care (01) ==
LOC: ER 19:10
DX: K21.0 Gastro-esophageal reflux disease with esophagitis; I50.9 Heart failure, unspecified; I48.91 Unspecified atrial fibrillation; I48.2 Chronic atrial fibrillation; Z79.01 Long term (current) use of anticoagulants; Z86.73 Personal history of transient ischemic attack (TIA), and cerebral infarction without residual deficits; Z95.0 Presence of cardiac pacemaker; I25.2 Old myocardial infarction

== ENCOUNTER 2019-06-12 13:54 | Observation (INO) ==
--- NOTE | 2019-06-12 14:19 | ERNOTE ---
Upper Extremity HPI - Narrative Date of Service: 06/12/19 - General Extremities Pain Location: arm: left Time Seen by Provider: 06/12/19 14:04 Source: patient, RN notes reviewed Exam Limitations: no limitations - Immun/Allergies/Home Medications Immunizations: IMMUNIZATION HX Immunizations Up to Date Yes History of Influenza Vaccine Yes Hx Pneumococcal Vaccination Yes Allergies/Adverse Reactions: Allergies Allergy/AdvReac Type Severity Reaction Status Date / Time nitroglycerin AdvReac told not Verified 06/12/19 14:06 to take by his neurologist, can take in an emergenc Home Medications: HOME MEDICATIONS Aspirin [Aspirin Enteric Coated] 81 mg PO QAM 03/27/15 [Last Taken Unknown] Furosemide [Lasix] 80 mg PO QAM 05/25/15 [Last Taken Unknown] Atorvastatin Calcium [Lipitor] 20 mg PO HS 01/26/16 [Last Taken Unknown] Pantoprazole Sodium [Protonix] 40 mg PO HS PRN 03/01/16 [Last Taken Unknown] Ranitidine HCl [Zantac] 300 mg PO QAM PRN 03/01/16 [Last Taken Unknown] Apixaban [Eliquis] 2.5 mg PO BID 12/17/17 [Last Taken Unknown] Insulin Detemir [Levemir] 90 unit SQ HS PRN 02/13/18 [Last Taken 02/12/18 21:00] Colchicine 0.6 mg PO BID 02/15/19 [Last Taken Unknown] HYDROcodone/ACETAMINOPHEN [[place] 5-325] 1 tab PO Q4H PRN #40 tab 03/07/19 [Last Taken Unknown] HYDROcodone/ACETAMINOPHEN [Hydrocodone-Acetamin 10-325 mg] 1 ea PO QID PRN #10 tab 06/11/19 [Last Taken Unknown] Losartan Potassium 25 mg PO DAILY 06/12/19 [Last Taken Unknown] - Pain Score Pain Score #1 Pain Score: 4 - History of Present Illness Narrative: The patient is a 64 year old male who presents for persistent left arm pain which has been present for 5 days. There are associated symptoms of left arm edema. The patient reports pain to left lateral elbow and wrist, 4/10 at rest and 10/10 with movement. There are alleviating factors of immobilization. There are aggravating factors of activity and palpation. Previous treatments have included: hydrocodone 10/325mg with minimal improvement. The past medical history includes: AFib, CHF, CVA, DM, HLD and ID. Patient has pacemaker. The social history is positive for former smoker. The patient has had no ill contacts. Patient has been seen for left arm pain in the ER the past 2 days. Yesterday patient received US, CT and xray evaluation of left upper extremities. Provider consulted with orthopedic specialty who presented and evaluated patient. After joint discussion with patient will consult with [facility] for further directed due to persistent symptoms. It was previously discussed with patient regarding doing CTA LUE, due to negative US and CT findings for arterial extravasation will wait for CTA evaluation. Review of Systems - Review of Systems Constitutional: Present: no symptoms reported. Absent: fever, chills, fatigue EYE: Present: no symptoms reported ENT: Present: no symptoms reported. Absent: ear pain, nasal drainage, sore throat Respiratory: Present: no symptoms reported. Absent: shortness of breath, cough Cardiology: Present: no symptoms reported. Absent: chest pain Gastrointestinal/Abdominal: Present: no symptoms reported. Absent: nausea, vomiting, diarrhea Genitourinary: Absent: dysuria Musculoskeletal: Present: joint pain Skin: Absent: rash Neurological: Present: numbness All Other Systems: All systems neg except as marked Medical History (Last Reviewed 06/12/19 @ 16:36 by Manolo Archibald RN) Afib CHF (congestive heart failure) CVA (cerebral vascular accident) Diabetes Hyperlipidemia Myocardial infarct Pacemaker Surgical History: Surgical History (Last Reviewed 06/12/19 @ 16:36 by Manolo Archibald RN) H/O esophagogastroduodenoscopy EGD with Biopsies on 03/09/19 @[place] History of cardiac radiofrequency ablation Onset Date: ~05/01/19 History of carotid endarterectomy History of heart artery stent Hx of CABG S/P ablation of atrial fibrillation Family History: Family History (Last Reviewed 06/12/19 @ 16:36 by Manolo Archibald RN) Other No pertinent family history Social History: (Last Reviewed 06/12/19 @ 16:36 by Manool Archibald RN) Tobacco: Smoking Status: Former smoker Alcohol: Alcohol type: beer alcohol intake frequency: 0-2 drinks per day Substance Use: substance use type: does not use Physical Exam - Physical Exam General Appearance: Present: wd/wn, alert, moderate distress Head Exam: Present: normal inspection Eye Exam: Normal inspection: bilateral Neck: Present: normal inspection Respiratory: Present: no respiratory distress, normal breath sounds, no accessory muscle use, lungs clear Cardiovascular/Chest: Present: regular rate, rhythm, no murmur Peripheral Pulses: N=norm/S=strong/W=weak/B=bound/A=absent: Radial (L): Normal Extremity Exam: Present: normal range of motion - pain with flexion and extension, bony tenderness - lateral elbow, wrist, lateral forearm, joint swelling - diffuse left arm swelling. Absent: joint redness Neurological Exam: Present: alert, oriented, normal mood/affect, no motor/sensory deficits Skin Exam: Present: normal color, warm/dry Progress - Date and Time Seen: Date and Time: 06/12/19 15:[address] upper extremity obtained 06/11/19, no evidence for arterial extravasation. Unsure of benefit for CTA evaluation. Will consult with [facility] due to intractable left upper extremity pain and swelling without definitive cause. 06/12/19 17:38 Results of prior testing as well as clinical findings discussed with , [facility]. After discussion feels that patient does warrant additional follow up and testing at [facility] with specialty but do not have bed availability at this time for transfer acceptance. After joint discussion plan will be to admit patient to [facility] for pain management with acceptance from [facility] tomorrow after bed available for further evaluation. Will continue to monitor and manage pain to left upper extremity. Instructed to notify [facility] if symptoms worsen or new symptoms develop to LUE while awaiting bed placement. - Results and Orders Patient's Lab Results:: I have reviewed the patient's lab results. - Vital Signs Patient's Vital Signs:: I have reviewed the patient's vital signs. Vital Signs: Vital Signs 06/12/19 14:07 Temperature 36.2 C Pulse Rate 73 Respiratory Rate 17 Blood Pressure 121/81 O2 Sat by Pulse Oximetry 94 - Progress/Reassessment Chief Complaint: Upper Extremity Injury/Problem Departure Clinical Impression: Intractable pain, Left upper extremity swelling - Departure Disposition: Still a patient Condition: Stable
[2019-06-12 14:32] LABS: Hematocrit 42.8 % (42.0-52.0); Hemoglobin 14.6 gm/dL (13.5-18.0); Mean Corpuscular Hemoglobin 31.7 pg (27-31); Mean Corpuscular Hgb Conc 34.1 g/dl (32-36); Mean Platelet Volume 9.4 fl (8-11.3); Neutrophil # 3.8 K/mm3 (1.3-6.0); Platelet Count 200 K/mm3 (150-450); Red Cell Distribution Width 13.2 % (11.5-14.0); White Blood Count 6.9 K/mm3 (4.0-10.5)
[2019-06-12 14:46] LABS: Albumin * 2.8 gm/dl (3.4-5.0); Bilirubin, Total 0.7 mg/dL (0.0-1.1); Ca. Corrected For Albumin 9.3 mg/dL (8.4-10.2); Calcium * 8.7 mg/dL (7.9-10.9); Carbon Dioxide 28.6 mmol/L (24-32.6); Potassium 3.6 mmol/L (3.4-4.6)
[2019-06-12] MEDS ORDERED: HYDROcodone/ACETAMINOPHEN 1 EACH TABLET PO ONE (15:15)
--- NOTE | 2019-06-12 18:48 | HP ---
Chief Complaint - Chief Complaint Date of Service: 06/12/19 Time of Service: 18:47 Chief Complaint: intractable LUE pain History of Present Illness: Hi Zelaya is a 64-year-old white male with past medical history of atrial fibrillation status post ablation, coronary artery disease status post CABG/status post stenting's, CVA, VIBHA s/p endarterectomy, diabetes mellitus type 2, pacemaker placement/AICD placement who was admitted on 06/12/2019 because of intractable left upper extremity pain. 1 week prior to admission the patient left wrist and left elbow started to pain him associated with swelling. He said he took 10 colchicine tabs which did not relieve the pain. He describes his pain as sharp, 4/10 when resting and over 10/10 with movement and activity. He went to the our emergency room 2 days ago and was given some pain medication and sent home. His uric acid is elevated 8.2. WBC is normal. But patient says that when he gets his gotten flareup it is usually swollen, red, warm to touch and this is the opposite. It is not warm and it is not red. Yesterday the patient came back and he did get an ultrasound, CT scan and x-ray evaluation of his left upper extremities. CTS of LUE showed- Soft tissue attenuation with mixed density surrounding the elbow and the wrist. This could either be bursitis, infection, gout or possible hematoma. US showed no DVT. No evidence for arterial extravasation.he was seen by orthopedics and they recommended doing a CT angiogram as his ultrasound and CT scan findings were negative. He presented again to the emergency room today and ED consulted Dr. Copeland at [facility] who accepted the patient for further work-up with specialty but they did not have any bed availability today. It was agreed with the patient to be admitted for observation and pain control and will follow-up with bed availability for transfer tomorrow with [facility]. Medical History (Last Reviewed 06/12/19 @ 17:34 by PEG Camacho) Afib CHF (congestive heart failure) CVA (cerebral vascular accident) Diabetes Hyperlipidemia Myocardial infarct Pacemaker Surgical History: Surgical History (Last Reviewed 06/12/19 @ 17:34 by PEG Camacho) H/O esophagogastroduodenoscopy EGD with Biopsies on 03/09/19 @[place] History of cardiac radiofrequency ablation Onset Date: ~12/13/19 History of carotid endarterectomy History of heart artery stent Hx of CABG S/P ablation of atrial fibrillation Family History: Family History (Last Reviewed 06/12/19 @ 17:34 by PEG Camacho) Other No pertinent family history Social History: (Last Reviewed 06/12/19 @ 17:34 by PEG Camacho) Tobacco: Smoking Status: Former smoker Alcohol: Alcohol type: beer alcohol intake frequency: 0-2 drinks per day Substance Use: substance use type: does not use Review Of Systems (GEN) - Review of Systems Generalized/Overall Review: Absent: Weakness, Chills, Fever EENTM: Absent: Blurred Vision Respiratory: Absent: Cough, Shortness of Breath, Orthopnea, Wheezing Cardiac: Present: Edema. Absent: Chest Pain, Palpitations Abdominal: Absent: Nausea, Vomiting, Abdominal Pain Genitourinary: Absent: Urgency, Frequency Musculoskeletal: Present: Joint Pain Skin: Absent: Lesions, Rash Endocrine: Absent: Intolerance to Cold, Intolerance to Heat Immunizations: IMMUNIZATION HX Immunizations Up to Date Yes History of Influenza Vaccine Yes Hx Pneumococcal Vaccination Yes Allergies/Adverse Reactions: Allergies Allergy/AdvReac Type Severity Reaction Status Date / Time nitroglycerin AdvReac told not Verified 06/12/19 14:06 to take by his neurologist, can take in an emergenc Home Medications: HOME MEDICATIONS Aspirin [Aspirin Enteric Coated] 81 mg PO QAM 03/27/15 [Last Taken Unknown] Furosemide [Lasix] 80 mg PO QAM 05/25/15 [Last Taken Unknown] Atorvastatin Calcium [Lipitor] 20 mg PO HS 01/26/16 [Last Taken Unknown] Pantoprazole Sodium [Protonix] 40 mg PO HS PRN 03/01/16 [Last Taken Unknown] Ranitidine HCl [Zantac] 300 mg PO QAM PRN 03/01/16 [Last Taken Unknown] Apixaban [Eliquis] 2.5 mg PO BID 12/17/17 [Last Taken Unknown] Insulin Detemir [Levemir] 90 unit SQ HS PRN 02/13/18 [Last Taken 02/12/18 21:00] Colchicine 0.6 mg PO BID 02/15/19 [Last Taken Unknown] HYDROcodone/ACETAMINOPHEN [[place] 5-325] 1 tab PO Q4H PRN #40 tab 10/19/19 [Last Taken Unknown] HYDROcodone/ACETAMINOPHEN [Hydrocodone-Acetamin 10-325 mg] 1 ea PO QID PRN #10 tab 06/11/19 [Last Taken Unknown] Losartan Potassium 25 mg PO DAILY 06/12/19 [Last Taken Unknown] Exam - Exam Vital Signs: Vital Signs - Last Taken Temp 36.0 C 06/12/19 16:24 Pulse 87 06/12/19 16:24 Resp 18 06/12/19 16:24 BP 144/75 06/12/19 16:24 Pulse Ox 97 06/12/19 16:24 Constitutional: Present: Alert, Oriented x3, Cooperative ENT Exam: Present: hearing grossly normal Eye Exam: bilateral eye: normal inspection, PERRL, EOMI Neck: Present: supple. Absent: lymphadenopathy (R), lymphadenopathy (L) Respiratory: Present: decreased breath sounds, No rales, No wheezing Cardiovascular/Chest: Present: regular rate, rhythm, no JVD, no murmur Abdomen: Present: Normal bowel sounds, soft, nontender, nondistended Extremity: Present: no calf tenderness, lower extremity edema, swelling, other - swelling, tender, not warm, no erythema, positive pulses- LUE, decreased ROM - left elblw /wrist/fingers positive nursa vs tophi- b/l olecranon process Diagnostic Studies: Abnormal Lab Results 06/12/19 06/12/19 06/12/19 Range/Units 14:15 14:15 14:15 RBC 4.60 L (4.7-6.0) M/mm3 MCH 31.7 H (27-31) pg Immature Gran % (Auto) 0.60 H (0.001-0.429) % Immature Gran # (Auto) 0.04 H (0.000-0.0310) K/mm3 Monocytes % 11.5 H (0.0-9) % Random Glucose 125 H (70-110) mg/dL Uric Acid 8.5 H (2.6-7.2) mg/dL Albumin 2.8 L (3.4-5.0) gm/dl Laboratory Results WBC 6.9 K/mm3 (4.0-10.5) D 06/12/19 14:15 RBC 4.60 M/mm3 (4.7-6.0) L 06/12/19 14:15 Hgb 14.6 gm/dL (13.5-18.0) 06/12/19 14:15 Hct 42.8 % (42.0-52.0) 06/12/19 14:15 MCV 93.0 fl (78-100) 06/12/19 14:15 MCH 31.7 pg (27-31) H 06/12/19 14:15 MCHC 34.1 g/dl (32-36) 06/12/19 14:15 RDW 13.2 % (11.5-14.0) 06/12/19 14:15 Plt Count 200 K/mm3 (150-450) 06/12/19 14:15 MPV 9.4 fl (8-11.3) 06/12/19 14:15 Immature Gran % (Auto) 0.60 % (0.001-0.429) H 06/12/19 14:15 Immature Gran # (Auto) 0.04 K/mm3 (0.000-0.0310) H 06/12/19 14:15 Neutrophils % 54.0 % (42-75.0) 06/12/19 14:15 Lymphocytes % 31.0 % (20-51) 06/12/19 14:15 Monocytes % 11.5 % (0.0-9) H 06/12/19 14:15 Eosinophils % 2.3 % (0.0-3.0) 06/12/19 14:15 Basophils % 0.6 % (0.0-1.0) 06/12/19 14:15 Nucleated RBC % 0.0 k/mm3 (0-1) 06/12/19 14:15 Neutrophils # 3.8 K/mm3 (1.3-6.0) 06/12/19 14:15 Lymphocytes # 2.15 k/mm3 (1.5-3.5) 06/12/19 14:15 Monocytes # 0.8 k/mm3 (0.0-1.0) 06/12/19 14:15 Eosinophils # 0.2 k/mm3 (0.0-0.7) 06/12/19 14:15 Absolute Basophils 0.0 k/mm3 (0.0-0.1) 06/12/19 14:15 Sodium 134 mmol/L (132-142) 06/12/19 14:15 Plasma Sodium 134 mmol/L (130-142) 06/12/19 14:15 Potassium 3.6 mmol/L (3.4-4.6) 06/12/19 14:15 Chloride 99 mmol/L (97-106) 06/12/19 14:15 Carbon Dioxide 28.6 mmol/L (24-32.6) 06/12/19 14:15 Anion Gap 10.0 mmol/L (6.8-13.8) 06/12/19 14:15 BUN 15 mg/dL (6-23) 06/12/19 14:15 Creatinine 1.07 mg/dL (0.4-1.4) 06/12/19 14:15 Est GFR (Non-Af Amer) 74 mL/min (60-130) 06/12/19 14:15 BUN/Creatinine Ratio 14.0 (9.0-21.6) 06/12/19 14:15 Random Glucose 125 mg/dL (70-110) H 06/12/19 14:15 Uric Acid 8.5 mg/dL (2.6-7.2) H 06/12/19 14:15 Calcium 8.7 mg/dL (7.9-10.9) 06/12/19 14:15 Calcium Adj for Albumin 9.3 mg/dL (8.4-10.2) 06/12/19 14:15 Total Bilirubin 0.7 mg/dL (0.0-1.1) 06/12/19 14:15 AST 36 U/L (0-48) 06/12/19 14:15 ALT 33 U/L (19-67) 06/12/19 14:15 Alkaline Phosphatase 124 U/L (50-170) 06/12/19 14:15 Total Protein 7.0 gm/dL (6.2-8.2) 06/12/19 14:15 Albumin 2.8 gm/dl (3.4-5.0) L 06/12/19 14:15 Assessment/Plan - Narrative Narrative: Hi Zelaya is a 64-year-old white male who was admitted for left upper extremity intractable pain. Patient developed left elbow and wrist pain and swelling about a week ago. He thought it was his gout and he took 10 pills of colchicine which did not relieve it. He was in our emergency room for 3 days in a row for this and CT scan of his left upper extremity showed soft tissue swelling with differentials of gout, infection, hematoma, bursitis. He was accepted to [facility]- Dr. Copeland but is awaiting bed availability. He was admitted for observation and pain control. We are not able to give him any NSAIDs as he is on Eliquis and aspirin for extensive cardiac and neurological issues. We might consider steroids but with Eliquis and ASA can also increase risk of bleeding especially GI bleed. We will continue with his Percocet for moderate pain and IV Dilaudid for severe pain at this time. We will continue with some of his home medications. - Assessment/Plan (1) Joint pain Assessment: with swelling of elbow/wrist/hand. will get ESR, CRP,ESTELA,RF. He is for further work up in [facility]. Problem: Acute Qualifiers: Joint pain location: elbow Laterality: left Qualified Code(s): M25.522 - Pain in left elbow (2) Intractable pain Problem: Acute (3) Atrial fibrillation Problem: Chronic Qualifiers: Atrial fibrillation type: chronic (4) Diabetes mellitus Problem: Chronic Qualifiers: Diabetes mellitus type: type 2 Diabetes mellitus complication status: with circulatory complication Diabetes mellitus complication detail: with peripheral angiopathy without gangrene Qualified Code(s): E11.51 - Type 2 diabetes mellitus with diabetic peripheral angiopathy without gangrene (5) Hyperlipidemia Problem: Chronic Qualifiers: Hyperlipidemia type: Mixed hyperlipidemia (6) Coronary artery disease Problem: Chronic Qualifiers: (7) Hx of CABG Problem: Chronic (8) Chronic atrial fibrillation Problem: Chronic (9) Gout Problem: Chronic Qualifiers: Gout site: elbow Gout etiology: unspecified cause Chronicity: chronic Laterality: unspecified laterality Qualified Code(s): 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
[2019-06-12] MEDS ORDERED: HYDROcodone/ACETAMINOPHEN 1 EACH TABLET PO PRN (19:13)
[2019-06-12] MEDS ORDERED: FAMOTIDINE 20 MG TABLET PO PRN (19:13)
[2019-06-12] MEDS ORDERED: PANTOPRAZOLE SODIUM 40 MG TABLET.EC PO PRN (19:13)
[2019-06-12] MEDS: ROSUVASTATIN CALCIUM 10 MG TABLET PO SCH (21:53)
[2019-06-12] MEDS: APIXABAN 2.5 MG TABLET PO SCH (21:57)
[2019-06-12] MEDS: HYDROmorphone HCL 1 MG/ML DISP.SYRIN IV PRN (22:08)
[2019-06-12] MEDS ORDERED: FUROSEMIDE 40 MG TABLET PO PRN (23:11)
[2019-06-12] MEDS: FUROSEMIDE 40 MG TABLET PO PRN (23:26)
[2019-06-13] MEDS: HYDROmorphone HCL 1 MG/ML DISP.SYRIN IV PRN ×7 (01:54→23:27)
[2019-06-13] MEDS: COLCHICINE 0.6 MG TABLET PO SCH ×2 (08:50→21:23)
[2019-06-13] MEDS: LOSARTAN POTASSIUM 50 MG TABLET PO SCH (08:50)
[2019-06-13] MEDS: ASPIRIN 81 MG TABLET.DR PO SCH (08:50)
[2019-06-13] MEDS: APIXABAN 2.5 MG TABLET PO SCH ×2 (08:51→21:23)
[2019-06-13] MEDS: FUROSEMIDE 40 MG TABLET PO SCH (08:51)
--- NOTE | 2019-06-13 11:02 | PN ---
Subjective - Date and Time Seen Date: 06/13/19 Time: 10:55 Subjective Narrative: Patient still LUE pain and swelling. Still awaitng bed in [facility]. Objective - Review of Systems Generalized/Overall Review: Denies: Fever EENTM: Denies: Blurred Vision Respiratory: Denies: Cough, Shortness of Breath, Orthopnea Cardiac: Reports: Edema. Denies: Chest Pain, Palpitations Abdominal: Denies: Nausea, Vomiting, Abdominal Pain Genitourinary Symptoms: Denies: Urgency, Frequency Musculoskeletal Complaints: Reports: Joint Pain, Joint Swelling Neurological: Denies: Headache Skin: Denies: Lesions, Rash Misc: All systems neg except as marked - Vitals Vitals: Last Vital Signs Temp 36.0 C 06/13/19 06:58 Pulse 75 06/13/19 08:51 Resp 16 06/13/19 06:58 BP 147/72 06/13/19 08:51 Pulse Ox 95 06/13/19 06:58 - Abnormal Lab Findings Abnormal Lab Findings: Abnormal Lab Results 06/12/19 06/12/19 06/12/19 Range/Units 14:15 14:15 14:15 RBC 4.60 L (4.7-6.0) M/mm3 MCH 31.7 H (27-31) pg Immature Gran % (Auto) 0.60 H (0.001-0.429) % Immature Gran # (Auto) 0.04 H (0.000-0.0310) K/mm3 Monocytes % 11.5 H (0.0-9) % ESR (0-10) mm/hr Random Glucose 125 H (70-110) mg/dL Uric Acid 8.5 H (2.6-7.2) mg/dL C-Reactive Prot, Quant (0.0-0.9) mg/dL Albumin 2.8 L (3.4-5.0) gm/dl 06/12/19 06/12/19 Range/Units 14:15 14:15 RBC (4.7-6.0) M/mm3 MCH (27-31) pg Immature Gran % (Auto) (0.001-0.429) % Immature Gran # (Auto) (0.000-0.0310) K/mm3 Monocytes % (0.0-9) % ESR 62 H (0-10) mm/hr Random Glucose (70-110) mg/dL Uric Acid (2.6-7.2) mg/dL C-Reactive Prot, Quant 11.2 H (0.0-0.9) mg/dL Albumin (3.4-5.0) gm/dl - Exam Constitutional: Present: Alert, Oriented x3, Cooperative ENT Exam: Present: hearing grossly normal Neck: Present: supple. Absent: lymphadenopathy (R), lymphadenopathy (L) Respiratory: Present: decreased breath sounds, No rales, No wheezing Cardiovascular/Chest: Present: regular rate, rhythm, no JVD, no murmur Abdomen: Present: Normal bowel sounds, soft, nontender, nondistended Extremity: Present: no calf tenderness, lower extremity edema, swelling - LUE, other - positive lump on both olecranon Assessment/Plan Plan Narrative: Hi is a 64-year-old white male who was admitted yesterday for observation and pain control and and transfer to [facility] once bed is available. We have just gotten a report that they do not have any beds available for today and we will try again tomorrow. I have restarted him back on his colchicine. We will check neurovascular status every 4-6 hours. He has palpable radial pulse. He cannot tolerate allopurinol. He was also told that he was not to take indomethacin as they said it was the most likely culprit of his cerebrovascular accident. His ESR and CRP are elevated as well as his uric acid. Because of his Eliquis and his aspirin I have deferred from starting him on steroids for fear of increased risk of bleeding. - Problems/Diagnosis (1) Joint pain Problem: Acute Qualifiers: Joint pain location: elbow Laterality: left Qualified Code(s): M25.522 - Pain in left elbow (2) Intractable pain Problem: Acute (3) Atrial fibrillation Problem: Chronic Qualifiers: Atrial fibrillation type: chronic (4) Diabetes mellitus Problem: Chronic Qualifiers: Diabetes mellitus type: type 2 Diabetes mellitus complication status: with circulatory complication Diabetes mellitus complication detail: with peripheral angiopathy without gangrene Qualified Code(s): E11.51 - Type 2 diabetes mellitus with diabetic peripheral angiopathy without gangrene (5) Hyperlipidemia Problem: Chronic Qualifiers: Hyperlipidemia type: Mixed hyperlipidemia (6) Coronary artery disease Problem: Chronic Qualifiers: (7) Hx of CABG Problem: Chronic (8) Chronic atrial fibrillation Problem: Chronic (9) Gout Problem: Chronic Qualifiers: Gout site: elbow Gout etiology: unspecified cause Chronicity: chronic Laterality: unspecified laterality Qualified Code(s): 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
[2019-06-13] MEDS: ROSUVASTATIN CALCIUM 10 MG TABLET PO SCH (21:23)
[2019-06-14] MEDS: HYDROmorphone HCL 1 MG/ML DISP.SYRIN IV PRN ×5 (03:33→22:43)
[2019-06-14 06:47] LABS: Hematocrit 43.6 % (42.0-52.0); Hemoglobin 14.9 gm/dL (13.5-18.0); Mean Corpuscular Hemoglobin 32.1 pg (27-31); Mean Corpuscular Hgb Conc 34.2 g/dl (32-36); Mean Platelet Volume 9.3 fl (8-11.3); Neutrophil # 3.3 K/mm3 (1.3-6.0); Neutrophil % 49.2 % (42-75.0); Platelet Count 220 K/mm3 (150-450); Red Blood Count 4.64 M/mm3 (4.7-6.0); Red Cell Distribution Width 13.3 % (11.5-14.0); White Blood Count 6.6 K/mm3 (4.0-10.5)
[2019-06-14 06:58] LABS: Anion Gap 13.1 mmol/L (6.8-13.8); BUN/Creatinine Ratio 16.8 (9.0-21.6); Calcium * 9.1 mg/dL (7.9-10.9); Carbon Dioxide 27.4 mmol/L (24-32.6); Estimated Creat Clear 88.3; Potassium 3.5 mmol/L (3.4-4.6)
[2019-06-14] MEDS: COLCHICINE 0.6 MG TABLET PO SCH ×2 (08:24→20:48)
[2019-06-14] MEDS: ASPIRIN 81 MG TABLET.DR PO SCH (08:24)
[2019-06-14] MEDS: LOSARTAN POTASSIUM 50 MG TABLET PO SCH (08:24)
[2019-06-14] MEDS: APIXABAN 2.5 MG TABLET PO SCH ×2 (08:25→20:48)
[2019-06-14] MEDS: FUROSEMIDE 40 MG TABLET PO SCH (08:25)
--- NOTE | 2019-06-14 12:33 | PN ---
Subjective - Date and Time Seen Date: 06/14/19 Time: 12:22 Subjective Narrative: Patient c/o "it stilll hurts the dick." he cannot remember what AE he had with allopurinol in the past. Objective - Review of Systems Generalized/Overall Review: Denies: Weakness, Chills, Fever EENTM: Denies: Blurred Vision Respiratory: Denies: Cough, Shortness of Breath, Orthopnea Cardiac: Denies: Chest Pain, Edema, Palpitations Abdominal: Reports: Constipation. Denies: Nausea, Vomiting Genitourinary Symptoms: Denies: Urgency, Frequency Musculoskeletal Complaints: Reports: Joint Pain, Joint Swelling Neurological: Denies: Headache Skin: Denies: Lesions, Rash Misc: All systems neg except as marked - Vitals Vitals: Last Vital Signs Temp 36.0 C 06/14/19 06:32 Pulse 75 06/14/19 08:25 Resp 18 06/14/19 06:32 BP 122/69 06/14/19 08:25 Pulse Ox 94 06/14/19 06:32 - Abnormal Lab Findings Abnormal Lab Findings: Abnormal Lab Results 06/14/19 06/14/19 06/14/19 Range/Units 06:25 06:25 06:40 RBC 4.64 L (4.7-6.0) M/mm3 MCH 32.1 H (27-31) pg Monocytes % 9.5 H (0.0-9) % ESR 68 H (0-10) mm/hr Random Glucose (70-110) mg/dL C-Reactive Prot, Quant 4.1 H (0.0-0.9) mg/dL 06/14/19 Range/Units 06:40 RBC (4.7-6.0) M/mm3 MCH (27-31) pg Monocytes % (0.0-9) % ESR (0-10) mm/hr Random Glucose 143 H (70-110) mg/dL C-Reactive Prot, Quant (0.0-0.9) mg/dL - Exam Constitutional: Present: Alert, Oriented x3, Cooperative ENT Exam: Present: hearing grossly normal Neck: Present: supple. Absent: lymphadenopathy (R), lymphadenopathy (L) Respiratory: Present: normal breath sounds, No rales, No wheezing Cardiovascular/Chest: Present: regular rate, rhythm, no JVD, no murmur Abdomen: Present: Normal bowel sounds, soft, nontender, nondistended Extremity: Present: lower extremity edema, swelling - LUE, other - tender wrist, elbow joints, bursa vs tophi, b/l elbow Assessment/Plan Plan Narrative: Hi was admitted for intractable left upper extremity pain and swelling. He says it still hurts like the Angelina. He is on pain medications. His CRP went down from 11 to 4.1, however his ESR went up from 62 to 68. His uric acid on admission was 8.2. I did talk to him that we may need to be on an anti- hyperuricemic agent like Uloric when his inflammation subsides but he does not want to hear about it. Since his presentation was not typical for a gouty flareup emergency room physician talked to Dr. Copeland who accepted the patient for transfer pending bed availability in [facility]. We just followed up with them and they still do not have a bed available. - Problems/Diagnosis (1) Joint pain Problem: Acute Qualifiers: Joint pain location: elbow Laterality: left Qualified Code(s): M25.522 - Pain in left elbow Narrative: oligoarticular also involving , left rist and hands (2) Intractable pain Problem: Acute (3) Atrial fibrillation Problem: Chronic Qualifiers: Atrial fibrillation type: chronic (4) Diabetes mellitus Problem: Chronic Qualifiers: Diabetes mellitus type: type 2 Diabetes mellitus complication status: with circulatory complication Diabetes mellitus complication detail: with peripheral angiopathy without gangrene Qualified Code(s): E11.51 - Type 2 diabetes mellitus with diabetic peripheral angiopathy without gangrene (5) Hyperlipidemia Problem: Chronic Qualifiers: Hyperlipidemia type: Mixed hyperlipidemia (6) Coronary artery disease Problem: Chronic Qualifiers: (7) Hx of CABG Problem: Chronic (8) Chronic atrial fibrillation Problem: Chronic (9) Gout Problem: Chronic Qualifiers: Gout site: elbow Gout etiology: unspecified cause Chronicity: chronic Laterality: unspecified laterality Qualified Code(s): 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
[2019-06-14] MEDS: DOCUSATE SODIUM 100 MG CAPSULE PO SCH ×2 (18:37→20:49)
[2019-06-14] MEDS: ROSUVASTATIN CALCIUM 10 MG TABLET PO SCH (20:49)
[2019-06-15] MEDS: HYDROmorphone HCL 1 MG/ML DISP.SYRIN IV PRN ×2 (02:34→07:11)
[2019-06-15] MEDS: ASPIRIN 81 MG TABLET.DR PO SCH (08:43)
[2019-06-15] MEDS: LOSARTAN POTASSIUM 50 MG TABLET PO SCH (08:43)
[2019-06-15] MEDS: DOCUSATE SODIUM 100 MG CAPSULE PO SCH ×2 (08:43→20:24)
[2019-06-15] MEDS: COLCHICINE 0.6 MG TABLET PO SCH ×2 (08:44→20:24)
[2019-06-15] MEDS: FUROSEMIDE 40 MG TABLET PO SCH (08:44)
[2019-06-15] MEDS: APIXABAN 2.5 MG TABLET PO SCH ×2 (08:44→20:25)
[2019-06-15] MEDS ORDERED: HYDROmorphone HCL 1 MG/ML DISP.SYRIN IV PRN (09:14)
[2019-06-15] MEDS: oxyCODONE HCL/ACETAMINOPHEN 1 TAB TABLET PO SCH ×4 (09:28→21:44)
--- NOTE | 2019-06-15 10:58 | PN ---
Subjective - Date and Time Seen Date: 06/15/19 Time: 10:47 Subjective Narrative: patient still having swelling and pain of his LUE. Has had 6 doses of IV dilaudid. still awaiting bed availability in [facility]. Objective - Review of Systems Generalized/Overall Review: Denies: Weakness, Chills, Fever EENTM: Denies: Blurred Vision Respiratory: Denies: Cough, Shortness of Breath, Orthopnea Cardiac: Reports: Edema. Denies: Chest Pain, Palpitations Abdominal: Denies: Nausea, Vomiting, Abdominal Pain Genitourinary Symptoms: Denies: Urgency, Frequency Musculoskeletal Complaints: Reports: Joint Pain, Joint Swelling Neurological: Denies: Headache Misc: All systems neg except as marked - Vitals Vitals: Last Vital Signs Temp 37.0 C 06/15/19 10:38 Pulse 78 06/15/19 10:38 Resp 16 06/15/19 10:38 BP 136/82 06/15/19 10:38 Pulse Ox 94 06/15/19 10:38 - Exam Constitutional: Present: Alert, Oriented x3, Cooperative, Obese ENT Exam: Present: hearing grossly normal Neck: Present: supple. Absent: lymphadenopathy (R), lymphadenopathy (L) Respiratory: Present: normal breath sounds, No rales, No wheezing Cardiovascular/Chest: Present: regular rate, rhythm, no JVD, no murmur Abdomen: Present: Normal bowel sounds, soft, nontender, obese Extremity: Present: lower extremity edema, swelling, other - joint pain and swelling, no erythema, not warm to tocuh, positive radial pulse Assessment/Plan Plan Narrative: Hi was admitted for pain control of intractable pain of his LUE . [facility] - Dr. Copeland accepted him for transfer pending bed availabilty for specialty evaluation and work up per ED. Will decrease his IV dilaudid to q 4 hours . Will give him his Percoset 5/325 1 tab PO QID routinely for now. Continue with Colchicine. He was trimming his nail with his pocket knife and it slipped and fell on his right foot- causing a wound. it bled for a while as he is on blood thinner but stopped with continued pressure. will apply ALMAZ and cover with mepilex. - Problems/Diagnosis (1) Joint pain Problem: Acute Qualifiers: Joint pain location: elbow Laterality: left Qualified Code(s): M25.522 - Pain in left elbow (2) Intractable pain Problem: Acute (3) Atrial fibrillation Problem: Chronic Qualifiers: Atrial fibrillation type: chronic (4) Diabetes mellitus Problem: Chronic Qualifiers: Diabetes mellitus type: type 2 Diabetes mellitus complication status: with circulatory complication Diabetes mellitus complication detail: with peripheral angiopathy without gangrene Qualified Code(s): E11.51 - Type 2 di abetes mellitus with diabetic peripheral angiopathy without gangrene (5) Hyperlipidemia Problem: Chronic Qualifiers: Hyperlipidemia type: Mixed hyperlipidemia (6) Coronary artery disease Problem: Chronic Qualifiers: (7) Hx of CABG Problem: Chronic (8) Chronic atrial fibrillation Problem: Chronic (9) Gout Problem: Chronic Qualifiers: Gout site: elbow Gout etiology: unspecified cause Chronicity: chronic Laterality: unspecified laterality Qualified Code(s): 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
[2019-06-15] MEDS: ROSUVASTATIN CALCIUM 10 MG TABLET PO SCH (20:24)
[2019-06-15] MEDS: FUROSEMIDE 40 MG TABLET PO PRN (20:24)
[2019-06-16] MEDS: ASPIRIN 81 MG TABLET.DR PO SCH (08:15)
[2019-06-16] MEDS: LOSARTAN POTASSIUM 50 MG TABLET PO SCH (08:15)
[2019-06-16] MEDS: COLCHICINE 0.6 MG TABLET PO SCH (08:15)
[2019-06-16] MEDS: oxyCODONE HCL/ACETAMINOPHEN 1 TAB TABLET PO SCH ×2 (08:15→13:04)
[2019-06-16] MEDS: DOCUSATE SODIUM 100 MG CAPSULE PO SCH (08:16)
[2019-06-16] MEDS: FUROSEMIDE 40 MG TABLET PO SCH (08:16)
[2019-06-16] MEDS: APIXABAN 2.5 MG TABLET PO SCH (08:16)
[2019-06-16] MEDS ORDERED: NEOMYCIN/BACITRACIN/POLYMYXINB 15 APPL TUBE TP SCH (09:00)
--- NOTE | 2019-06-16 09:01 | PN ---
Progess Note - Interim Date: 06/16/19 Time: 08:58 Narrative: 06/16/19 08:58 I talked to patient and told him that I talked to the Triage officer in [facility]- he will keep in the IM waiting list but no bed availability yet. He did not need to have IV dilaudid yesterday as we kept him routine Percoset QID. He is willing to be discharged today and be scheduled as outpatient if still with no bed availabilty today. Neurovascular status is intact but still swelling and tenderness. No erythema, no warmess. Will get ESR, CRP, CBC,BMP today.
[2019-06-16 09:08] LABS: Hematocrit 45.6 % (42.0-52.0); Hemoglobin 15.9 gm/dL (13.5-18.0); Mean Cell Volume 91.8 fl (78-100); Mean Corpuscular Hgb Conc 34.9 g/dl (32-36); Mean Platelet Volume 9.3 fl (8-11.3); Neutrophil # 3.3 K/mm3 (1.3-6.0); Neutrophil % 49.2 % (42-75.0); Platelet Count 217 K/mm3 (150-450); Red Blood Count 4.97 M/mm3 (4.7-6.0); Red Cell Distribution Width 13.1 % (11.5-14.0); White Blood Count 6.7 K/mm3 (4.0-10.5)
[2019-06-16 09:16] LABS: Anion Gap 12.7 mmol/L (6.8-13.8); BUN/Creatinine Ratio 13.7 (9.0-21.6); CRP 2.1 mg/dL (0.0-0.9); Calcium * 8.9 mg/dL (7.9-10.9); Carbon Dioxide 30.1 mmol/L (24-32.6); Estimated Creat Clear 76.2; Potassium 3.8 mmol/L (3.4-4.6)
--- NOTE | 2019-06-16 11:01 | DS ---
(1) Joint pain Diagnosis(s): and wrist Problem: Acute Qualifiers: Joint pain location: elbow Laterality: left Qualified Code(s): M25.522 - Pain in left elbow (2) Intractable pain Problem: Resolved (3) Atrial fibrillation Problem: Chronic Qualifiers: Atrial fibrillation type: chronic (4) Diabetes mellitus Problem: Chronic Qualifiers: Diabetes mellitus type: type 2 Diabetes mellitus complication status: with circulatory complication Diabetes mellitus complication detail: with peripheral angiopathy without gangrene Qualified Code(s): E11.51 - Type 2 diabetes mellitus with diabetic peripheral angiopathy without gangrene (5) Hyperlipidemia Problem: Chronic Qualifiers: Hyperlipidemia type: Mixed hyperlipidemia (6) Coronary artery disease Problem: Chronic Qualifiers: (7) Hx of CABG Problem: Chronic (8) Chronic atrial fibrillation Problem: Chronic (9) Gout Problem: Chronic Qualifiers: Gout site: elbow Gout etiology: unspecified cause Chronicity: chronic Laterality: unspecified laterality Qualified Code(s): 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 (11) Wound of foot Problem: Acute Date of Discharge:: 06/16/19 Hospital Course: Hi Zelaya is a 64-year-old white male with past medical history of atrial fibrillation status post ablation, coronary artery disease status post CABG/status post stenting's, CVA, VIBHA s/p endarterectomy, diabetes mellitus type 2, pacemaker placement/AICD placement who was admitted on 06/12/2019 because of intractable left upper extremity pain. 1 week prior to admission the patient left wrist and left elbow started to pain him associated with swelling. He said he took 10 colchicine tabs which did not relieve the pain. He describes his pain as sharp, 4/10 when resting and over 10/10 with movement and activity. He went to the our emergency room 2 days ago and was given some pain medication and sent home. His uric acid is elevated 8.5. WBC is normal. But patient says that when he gets his gouty flareup it is usually swollen, red, warm to touch and this is the opposite. It was not warm and it is not red. He was seen by orthopedics and they recommended doing an MRI as his ultrasound and was negative for DVT. 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 This could either be bursitis, infection, gout or possible hematoma. No evidence for arterial extravasation. He presented again to the emergency room on 06/12/[address] Copeland at [facility] who accepted the patient for further work-up with specialty but they did not have any bed availability today. It was agreed with the patient to be admitted for observation and pain control and will follow-up with bed availability for transfer with [facility]. His ESR was 62, CRP 11.2. I did not give steroids for his inflammation due to his Eliquis/ASA. I restarted him back on Colchicine as I felt this was Gout with atypical presentation. I told hime that he may need to be on Uloric when his inflammation is resolved. He did not want to hear about it as he had AE from his Allopurinol before. He was ne eding IV dilaudid for his pain. His neurovascular status of his LUE was good. He did not have compartment syndrome. I talked to the patient today and told him that I talked to the Triage officer yesterday -Dr. Chow- in [facility]- he said he will keep in the IM waiting list but the have no bed availability yet. I kept him routine Percoset QID yesterday. He did not need to have IV dilaudid the whole day yesterday . He is willing to be discharged today and be scheduled as outpatient if still with no bed availabilty today. Neurovascular status is intact but still swelling and tenderness. No erythema, no warmess. His follow up ESR today is down to 58 and CRP today is down to 2.1. His ESTELA and RF were negative. We will discharge him today as there is still no bed availability today. He was not to drive. Procedures Performed: none Results and Findings: Lab Pending Results 06/12/19 14:15: WBC 6.9 D, RBC 4.60 L, Hgb 14.6, Hct 42.8, MCV 93.0, MCH 31.7 H, MCHC 34.1, RDW 13.2, Plt Count 200, MPV 9.4, Immature Gran % (Auto) 0.60 H, Immature Gran # (Auto) 0.04 H, Neutrophils % 54.0, Lymphocytes % 31.0, Monocytes % 11.5 H, Eosinophils % 2.3, Basophils % 0.6, Nucleated RBC % 0.0, Neutrophils # 3.8, Lymphocytes # 2.15, Monocytes # 0.8, Eosinophils # 0.2, Absolute Basophils 0.0 06/12/19 14:15: Sodium 134, Plasma Sodium 134, Potassium 3.6, Chloride 99, Carbon Dioxide 28.6, Anion Gap 10.0, BUN 15, Creatinine 1.07, Est GFR (Non-Af Amer) 74, BUN/Creatinine Ratio 14.0, Random Glucose 125 H, Calcium 8.7, Calcium Adj for Albumin 9.3, Total Bilirubin 0.7, AST 36, ALT 33, Alkaline Phosphatase 124, Total Protein 7.0, Albumin 2.8 L 06/12/19 14:15: Uric Acid 8.5 H 06/12/19 14:15: ESR 62 H 06/12/19 14:15: C-Reactive Prot, Quant 11.2 H 06/12/19 14:15: Rheumatoid Factor Titer <14, ESTELA Screen Negative 06/14/19 06:25: ESR 68 H 06/14/19 06:25: C-Reactive Prot, Quant 4.1 H 06/14/19 06:40: WBC 6.6, RBC 4.64 L, Hgb 14.9, Hct 43.6, MCV 94.0, MCH 32.1 H, MCHC 34.2, RDW 13.3, Plt Count 220, MPV 9.3, Immature Gran % (Auto) 0.30, Immature Gran # (Auto) 0.02, Neutrophils % 49.2, Lymphocytes % 38.2, Monocytes % 9.5 H, Eosinophils % 2.3, Basophils % 0.5, Nucleated RBC % 0.0, Neutrophils # 3.3, Lymphocytes # 2.52, Monocytes # 0.6, Eosinophils # 0.2, Absolute Basophils 0.0 06/14/19 06:40: Sodium 134, Plasma Sodium 135, Potassium 3.5, Chloride 97, Carbon Dioxide 27.4, Anion Gap 13.1, BUN 17, Creatinine 1.01, Est GFR (Non-Af Amer) 79, BUN/Creatinine Ratio 16.8, Random Glucose 143 H, Calcium 9.1 06/16/19 09:00: WBC 6.7, RBC 4.97, Hgb 15.9, Hct 45.6, MCV 91.8, MCH 32.0 H, MCHC 34.9, RDW 13.1, Plt Count 217, MPV 9.3, Immature Gran % (Auto) 0.10, Immature Gran # (Auto) 0.01, Neutrophils % 49.2, Lymphocytes % 37.2, Monocytes % 9.6 H, Eosinophils % 3.3 H, Basophils % 0.6, Nucleated RBC % 0.0, Neutrophils # 3.3, Lymphocytes # 2.48, Monocytes # 0.6, Eosinophils # 0.2, Absolute Basophils 0.0 06/16/19 09:00: ESR 56 H 06/16/19 09:00: Sodium 134, Plasma Sodium 136, Potassium 3.8, Chloride 95 L, Carbon Dioxide 30.1, Anion Gap 12.7, BUN 16, Creatinine 1.17, Est GFR (Non-Af Amer) 67, BUN/Creatinine Ratio 13.7, Random Glucose 214 H D, Calcium 8.9, C- Reactive Prot, Quant 2.1 H Discharge Location: Home Disposition: Home self-care Condition: Stable Discharge Activity: Activity as tolerated Discharge Diet: Consistent carbs, Low salt Additional Patient Instructions (free text): Follow up with PCP in 1 week. [facility] will call you for your appointment up there in [place]. Prescriptions (Any new or edited meds): Docusate Sodium [Colace] 100 mg PO BID #60 cap Transmission Status: Pending to [place], [place] Neomycin/Bacitracin/Polymyxinb [Neosporin Ointment] 1 appl TOPICAL DAILY #1 tube Transmission Status: Pending to [place], [place] oxyCODONE HCL/ACETAMINOPHEN [Percocet 5 MG/325 MG] 1 tab PO QID 7 Days #30 tab Transmission Status: Sent to [place], [place] Complete Home Medications List: Complete Home Medication List: Aspirin [Aspirin Enteric Coated] 81 mg PO QAM 03/27/15 Furosemide [Lasix] 80 mg PO QAM 05/25/15 Atorvastatin Calcium [Lipitor] 20 mg PO HS 01/26/16 Pantoprazole Sodium [Protonix] 40 mg PO HS PRN 03/01/16 Ranitidine HCl [Zantac] 300 mg PO QAM PRN 03/01/16 Apixaban [Eliquis] 2.5 mg PO BID 12/17/17 Insulin Detemir [Levemir] 90 unit SQ HS PRN 02/13/18 Colchicine 0.6 mg PO BID 02/15/19 HYDROcodone/ACETAMINOPHEN [Irving 5-325] 1 tab PO Q4H PRN #40 tab 03/07/19 HYDROcodone/ACETAMINOPHEN [Hydrocodone-Acetamin 10-325 mg] 1 ea PO QID PRN #10 tab 06/11/19 Losartan Potassium 25 mg PO DAILY 06/12/19 Docusate Sodium [Colace] 100 mg PO BID #60 cap 06/16/19 Neomycin/Bacitracin/Polymyxinb [Neosporin Ointment] 1 appl TOPICAL DAILY #1 tube 06/16/19 oxyCODONE HCL/ACETAMINOPHEN [Percocet 5 MG/325 MG] 1 tab PO QID 7 Days #30 tab 06/16/19
[2019-06-16 12:45] VITALS: BP 146/80
== END 2019-06-16 13:20 | disposition home or self-care (01) ==
LOC: ER 13:54 → MS 13:54
PROVIDERS: ADMIT Internal Medicine; ATTEND Internal Medicine
DX: M25.50 Pain in unspecified joint; R06.02 Shortness of breath; E11.51 Type 2 diabetes mellitus with diabetic peripheral angiopathy without gangrene; I10 Essential (primary) hypertension; I25.10 Atherosclerotic heart disease of native coronary artery without angina pectoris; E78.2 Mixed hyperlipidemia; M1A.029 Idiopathic chronic gout, unspecified elbow; M25.522 Pain in left elbow; I48.20 Chronic atrial fibrillation, unspecified
CPT/HCPCS: 36415; 80048; 80053; 84550; 85025; 85652; 86038; 86140; 86431; 96374; 96375; 99283; 99285; G0378

== ENCOUNTER 2019-10-28 08:43 | Observation (INO) ==
[2019-10-28] MEDS ORDERED: FUROSEMIDE 10 MG/ML VIAL IV ONE (09:06)
--- NOTE | 2019-10-28 09:12 | ERNOTE ---
Dyspnea - Date Date of Service: 10/28/19 - General Presenting Symptoms: shortness of breath Time Seen by Provider: 10/28/19 09:05 Source: patient Exam Limitations: no limitations - Immun/Allergies/Home Medications Immunizations: IMMUNIZATION HX Immunizations Up to Date Yes History of Influenza Vaccine No Hx Pneumococcal Vaccination No Allergies/Adverse Reactions: Allergies nitroglycerin Adverse Reaction (Verified 07/26/19 06:39) told not to take by his neurologist, can take in an emergenc Contraindication by Dr. Gomez (neurologist [facility]), can take in case of an emergency Home Medications: HOME MEDICATIONS Aspirin [Aspirin Enteric Coated] 81 mg PO QAM 03/27/15 [Last Taken Unknown] Furosemide [Lasix] 80 mg PO BID 05/25/15 [Last Taken Unknown] Pantoprazole Sodium [Protonix] 40 mg PO HS PRN 03/01/16 [Last Taken Unknown] Apixaban [Eliquis] 2.5 mg PO BID 12/17/17 [Last Taken Unknown] Insulin Detemir [Levemir] 90 unit SQ HS PRN 02/13/18 [Last Taken 02/12/18 21:00] Colchicine 0.6 mg PO BID 02/15/19 [Last Taken Unknown] HYDROmorphone HCL [Dilaudid] 2 mg PO Q6H PRN #10 tab 06/29/19 [Last Taken Unknown] Allopurinol [Zyloprim (Allopurinol)] 100 mg PO DAILY 07/18/19 [Last Taken Unknown] - History of Present Illness Narrative: Patient presents to the ED for retaining fluid. He relates that over the last 2 days he has been retaining fluid. Feeling more SOB with fluid retention in his abdomen and legs and feeling SOB with lying flat and exertion. Took 120mg lasix last night and did not urinate as normal. Some mild chest tightness last night with the SOB> No acute chest pain. Rolled his right ankle yesterday while out looking for a cow. No acute abdominal pain. No acute N/T/W. Severity: moderate Initiating event: Denies: upper resp illness, out of meds Frequency of episodes: Reports: occassional episodes Modifying Factors - (Improves): Reports: nothing Modifying Factors (Worsens): Reports: activity Associated Symptoms-Dyspnea: Reports: ankle/leg swelling. Denies: fever/chills, leg/calf pain, tingling of hands/face Prior Treatment: Denies: recently seen Review of Systems - Review of Systems Constitutional: Absent: fever ENT: Absent: sore throat Respiratory: Present: shortness of breath Cardiology: Absent: palpitations Gastrointestinal/Abdominal: Absent: abdominal pain Genitourinary: Present: other - decreased urine output. . Absent: dysuria Musculoskeletal: Present: other - rolled ankle Neurological: Absent: weakness All Other Systems: All systems neg except as marked Medical History (Last Reviewed 10/28/19 @ 09:10 by Colt Martin MD) Afib CHF (congestive heart failure) CVA (cerebral vascular accident) Diabetes Hyperlipidemia Myocardial infarct Pacemaker Surgical History: Surgical History (Last Reviewed 10/28/19 @ 09:10 by Colt Martin MD) H/O esophagogastroduodenoscopy EGD with Biopsies on 03/09/19 @[facility] [place] History of cardiac radiofrequency ablation Onset Date: ~05/01/19 History of carotid endarterectomy History of heart artery stent Hx of CABG S/P ablation of atrial fibrillation Family History: Family History (Last Reviewed 10/28/19 @ 09:10 by Colt Martin MD) Other No pertinent family history Social History: (Last Reviewed 10/28/19 @ 09:10 by Colt Martin MD) Tobacco: Smoking Status: Former smoker Alcohol: Alcohol type: beer alcohol intake frequency: 0-2 drinks per day Substance Use: substance use type: does not use Physical Exam - Physical Exam General Appearance: Present: alert, no apparent distress Head Exam: Present: normal inspection, no evidence of injury Eye Exam: Normal inspection: bilateral, PERRL: bilateral Ears, Nose, Throat: Present: normal ENT inspection Neck: Present: normal inspection Respiratory: Present: other - rales in the bases. Gets tachypnic with activity or talking. Absent: accessory muscle use Cardiovascular/Chest: Present: regular rate, rhythm, normal peripheral pulses Gastrointestinal/Abdominal: Present: normal bowel sounds, nontender, soft Back Exam: Absent: CVA tenderness (R), CVA tenderness (L) Extremity Exam: Present: no edema Neurological Exam: Present: alert, no motor/sensory deficits Skin Exam: Present: normal color, warm/dry Progress - Results and Orders Patient's Lab Results:: I have reviewed the patient's lab results. - Vital Signs Patient's Vital Signs:: I have reviewed the patient's vital signs. Vital Signs: Vital Signs 10/28/19 08:47 Temperature 36.9 C Pulse Rate 84 Respiratory Rate 24 H Blood Pressure 160/101 H O2 Sat by Pulse Oximetry 98 - EKG EKG #1 EKG read: Interp. by me EKG Comments: Paced rhythm rate 81. No clear evidence of acute infarct or ischemic pattern. - X-Ray X-Ray #1 X-Ray: chest Interpretation: Interp. by me X-ray Comments: I reviewed official radiology report X-Ray #2 X-Ray: ankle Interpretation: Interp. by me X-ray Comments: I reviewed official radiology report - Progress/Reassessment Chief Complaint: Dyspnea Progress Note-Subjective: 10/28/19 11:37 Patient given IV Lasic (80mg) and had 700 cc output. He however did not feel improved. Has had 12# weight gain in 2 days and minimal output with high dose Lasix at home. He walked here and had to stop because of tachypnea and SOB. He is labored with talking when I discuss results with him. He feels too SOB to go home. D/W case management and Dr Carmichael who is kind enough to admit the patient observation for diuresis for decompensation CHF . Departure Clinical Impression: Tachypnea, Acute decompensated heart failure, Ankle injury - Departure Disposition: Still a patient Condition: Fair Referrals: Esmer Machado MD [Primary Care Provider] -
[2019-10-28 09:20] LABS: Hematocrit 46.7 % (42.0-52.0); Hemoglobin 15.4 gm/dL (13.5-18.0); Mean Cell Volume 91.6 fl (78-100); Mean Corpuscular Hemoglobin 30.2 pg (27-31); Mean Platelet Volume 9.7 fl (8-11.3); Neutrophil # 3.7 K/mm3 (1.3-6.0); Neutrophil % 52.3 % (42-75.0); Platelet Count 160 K/mm3 (150-450); Red Cell Distribution Width 14.3 % (11.5-14.0); White Blood Count 7.1 K/mm3 (4.0-10.5)
[2019-10-28 09:42] LABS: Albumin * 3.2 gm/dl (3.4-5.0); Anion Gap 10.2 mmol/L (6.8-13.8); BUN/Creatinine Ratio 15.5 (9.0-21.6); Bilirubin, Total 0.6 mg/dL (0.0-1.1); Ca. Corrected For Albumin 9.2 mg/dL (8.4-10.2); Calcium * 8.9 mg/dL (7.9-10.9); Carbon Dioxide 27.5 mmol/L (24-32.6); Potassium 3.7 mmol/L (3.4-4.6); Total Protein 7.5 gm/dL (6.2-8.2)
[2019-10-28] MEDS ORDERED: HYDROmorphone HCL 1 MG/ML DISP.SYRIN IV ONE (10:27)
[2019-10-28 11:20] LABS: Troponin I 0.081 ng/mL (0.00-0.10)
[2019-10-28] MEDS ORDERED: ACETAMINOPHEN 325 MG TABLET PO PRN (15:28)
[2019-10-28] MEDS ORDERED: ALLOPURINOL 100 MG TABLET PO PRN (15:29)
[2019-10-28] MEDS ORDERED: HYDROmorphone HCL 2 MG TABLET PO PRN (15:29)
[2019-10-28] MEDS ORDERED: INSULIN DETEMIR 100 UNITS/ML VIAL SC PRN (15:29)
--- NOTE | 2019-10-28 16:22 | HP ---
Chief Complaint - Chief Complaint Date of Service: 10/28/19 Time of Service: 15:56 Chief Complaint: I have shortness of breath and pedal edema. History of Present Illness: 64-year-old male with past medical history of coronary artery disease, CABG with 9 stents, type 2 diabetes, hypertension, pacemaker status, CKD 3, obesity, gout, chronic cholestasis, was evaluated in the ER for worsening dyspnea at rest and on exertion with accompanying chest pressure of several days duration. Patient reports that he normally takes p.o. diuretics but the medications have been inadequate in controlling his congestive heart failure symptoms so he started noticing swelling in his lower extremities and abdomen several days ago. Patient reports that he has become so short of breath that it has become difficult to walk even short distances. His pedal edema is worse than usual and is now causing pain in his shins and ankles. Ankle pain on the right has been exacerbated due to twisting of his ankle yesterday at his home. X-ray of the ankle ordered in the ER was negative for any fractures. Work-up done in the ER also revealed an elevated BNP but a negative troponin. EKG was also unremarkable for any new acute changes. He was treated with a dose of IV diuretics while in the ER but his diuresis has been suboptimal therefore and hospital treatment became necessary for additional treatment of IV diuretics to decrease preload. Medical History (Last Reviewed 10/28/19 @ 14:10 by Tori Alcantara RN) Afib CHF (congestive heart failure) CVA (cerebral vascular accident) Diabetes Hyperlipidemia Myocardial infarct Pacemaker Surgical History: Surgical History (Last Reviewed 10/28/19 @ 14:11 by Tori Alcantara RN) H/O esophagogastroduodenoscopy EGD with Biopsies on 03/09/19 @[facility] History of cardiac radiofrequency ablation Onset Date: ~05/01/19 History of carotid endarterectomy History of heart artery stent Hx of CABG S/P ablation of atrial fibrillation Family History: Family History (Last Reviewed 10/28/19 @ 14:12 by Tori Alcantara RN) Other No pertinent family history Social History: (Last Reviewed 10/28/19 @ 09:10 by Colt Martin MD) Tobacco: Smoking Status: Former smoker Alcohol: Alcohol type: beer alcohol intake frequency: 0-2 drinks per day Substance Use: substance use type: does not use Peds Patient Hx - Developmental: No Pertinent Hx Peds Patient Hx - Medical: No Pertinent Hx Peds Patient Hx - Cardiac/Respiratory: No Pertinent Hx Peds Patient Hx - Surgical: No Surgical History Patient History - Cancer: No Hx of Cancer Review Of Systems (GEN) - Review of Systems Generalized/Overall Review: Present: Weight gain EENTM: Present: No Symptoms Reported Respiratory: Present: Cough, Shortness of Breath Cardiac: Present: Edema Abdominal: Present: No Symptoms Reported Genitourinary: Present: No Symptoms Reported Musculoskeletal: Present: No Symptoms Reported Neurological: Present: No Symptoms Reported Skin: Present: No Symptoms Reported Endocrine: Present: No Symptoms Reported Immunizations: IMMUNIZATION HX Immunizations Up to Date Yes History of Influenza Vaccine No Hx Pneumococcal Vaccination No Allergies/Adverse Reactions: Allergies Allergy/AdvReac Type Severity Reaction Status Date / Time nitroglycerin AdvReac told not Verified 07/26/19 06:39 to take by his neurologist, can take in an emergenc Home Medications: HOME MEDICATIONS Aspirin [Aspirin Enteric Coated] 81 mg PO QAM 03/27/15 [Last Taken Unknown] Furosemide [Lasix] 80 mg PO DAILY 05/25/15 [Last Taken Unknown] Pantoprazole Sodium [Protonix] 40 mg PO HS PRN 03/01/16 [Last Taken Unknown] Apixaban [Eliquis] 2.5 mg PO BID 12/17/17 [Last Taken Unknown] Insulin Detemir [Levemir] 92 unit SQ HS PRN 02/13/18 [Last Taken 02/12/18 21:00] Colchicine 0.6 mg PO BID 02/15/19 [Last Taken Unknown] HYDROmorphone HCL [Dilaudid] 2 mg PO Q6H PRN #10 tab 06/29/19 [Last Taken Unknown] Allopurinol [Zyloprim (Allopurinol)] 100 mg PO DAILY PRN 07/18/19 [Last Taken Unknown] Exam - Exam Vital Signs: Vital Signs - Last Taken Temp 37.0 C 10/28/19 12:25 Pulse 80 10/28/19 14:02 Resp 20 10/28/19 12:25 BP 166/104 H 10/28/19 12:25 Pulse Ox 98 10/28/19 12:25 Constitutional: Present: Alert, Oriented x3, Cooperative, Well developed, Well nourished, No distress, Obese ENT Exam: Present: normal ENT inspection, hearing grossly normal, pharynx normal, TMs normal Eye Exam: bilateral eye: normal inspection, PERRL, EOMI Neck: Present: non-tender, full range of motion, supple, normal inspection, trachea midline Back Exam: Present: normal inspection, no CVA tenderness, no vertebral tenderness Breasts: Present: Exam deferred Respiratory: Present: chest non-tender, no respiratory distress, no accessory muscle use, crackles - Fine bibasilar crackles Cardiovascular/Chest: Present: normal peripheral pulses, regular rate, rhythm, no chest tenderness, no edema, no gallop, no JVD, no murmur, no rub Peripheral Pulses: carotid (R): 3+, carotid (L): 3+, femoral (R): 3+, femoral (L): 3+, dorsalis-pedis (R): 3+, dorsalis-pedis (L): 3+ Abdomen: Present: Normal bowel sounds, soft, nondistended, no rebound tenderness, no hepatospenomegaly, no masses, obese, tender - RUQ, and right periumbilical tenderness /Rectal: Present: Exam deferred Extremity: Present: normal range of motion, non-tender, no calf tenderness, pelvis stable, lower extremity edema - 3+ bilateral lower extremity edema, pedal edema, swelling Skin Exam: Present: normal color, warm/dry, no cyanosis Lymphatic: Present: no adenopathy 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, normal cerebellar test, no mo tor/sensory deficits, alert, normal mood/affect, oriented x 3 Appearance: Present: appropriate appearance, appropriate insight, neat, no memory impairment Eye contact: Present: cooperative, good eye contact, normal speech Thoughts: Present: normal thought pattern, no apparent hallucination Diagnostic Studies: Abnormal Lab Results 10/28/19 10/28/19 Range/Units 09:13 09:13 RDW 14.3 H (11.5-14.0) % Monocytes % 11.5 H (0.0-9) % Creatinine 1.42 H (0.4-1.4) mg/dL Est GFR (Non-Af Amer) 53 L D (60-130) mL/min Random Glucose 154 H (70-110) mg/dL AST 74 H (0-48) U/L ALT 97 H (19-67) U/L B-Natriuretic Peptide 929 H (5-175) pg/mL Albumin 3.2 L (3.4-5.0) gm/dl Laboratory Results WBC 7.1 K/mm3 (4.0-10.5) 10/28/19 09:13 RBC 5.10 M/mm3 (4.7-6.0) 10/28/19 09:13 Hgb 15.4 gm/dL (13.5-18.0) 10/28/19 09:13 Hct 46.7 % (42.0-52.0) 10/28/19 09:13 MCV 91.6 fl (78-100) 10/28/19 09:13 MCH 30.2 pg (27-31) 10/28/19 09:13 MCHC 33.0 g/dl (32-36) 10/28/19 09:13 RDW 14.3 % (11.5-14.0) H 10/28/19 09:13 Plt Count 160 K/mm3 (150-450) 10/28/19 09:13 MPV 9.7 fl (8-11.3) 10/28/19 09:13 Immature Gran % (Auto) 0.30 % (0.001-0.429) 10/28/19 09:13 Immature Gran # (Auto) 0.02 K/mm3 (0.000-0.0310) 10/28/19 09:13 Neutrophils % 52.3 % (42-75.0) 10/28/19 09:13 Lymphocytes % 33.1 % (20-51) 10/28/19 09:13 Monocytes % 11.5 % (0.0-9) H 10/28/19 09:13 Eosinophils % 2.1 % (0.0-3.0) 10/28/19 09:13 Basophils % 0.7 % (0.0-1.0) 10/28/19 09:13 Nucleated RBC % 0.0 k/mm3 (0-1) 10/28/19 09:13 Neutrophils # 3.7 K/mm3 (1.3-6.0) 10/28/19 09:13 Lymphocytes # 2.36 k/mm3 (1.5-3.5) 10/28/19 09:13 Monocytes # 0.8 k/mm3 (0.0-1.0) 10/28/19 09:13 Eosinophils # 0.2 k/mm3 (0.0-0.7) 10/28/19 09:13 Absolute Basophils 0.1 k/mm3 (0.0-0.1) 10/28/19 09:13 Sodium 134 mmol/L (132-142) 10/28/19 09:13 Plasma Sodium 135 mmol/L (130-142) 10/28/19 09:13 Potassium 3.7 mmol/L (3.4-4.6) 10/28/19 09:13 Chloride 100 mmol/L (97-106) 10/28/19 09:13 Carbon Dioxide 27.5 mmol/L (24-32.6) 10/28/19 09:13 Anion Gap 10.2 mmol/L (6.8-13.8) 10/28/19 09:13 BUN 22 mg/dL (6-23) 10/28/19 09:13 Creatinine 1.42 mg/dL (0.4-1.4) H 10/28/19 09:13 Est GFR (Non-Af Amer) 53 mL/min (60-130) L D 10/28/19 09:13 BUN/Creatinine Ratio 15.5 (9.0-21.6) 10/28/19 09:13 Random Glucose 154 mg/dL (70-110) H 10/28/19 09:13 Calcium 8.9 mg/dL (7.9-10.9) 10/28/19 09:13 Calcium Adj for Albumin 9.2 mg/dL (8.4-10.2) 10/28/19 09:13 Total Bilirubin 0.6 mg/dL (0.0-1.1) 10/28/19 09:13 AST 74 U/L (0-48) H 10/28/19 09:13 ALT 97 U/L (19-67) H 10/28/19 09:13 Alkaline Phosphatase 168 U/L (50-170) 10/28/19 09:13 Troponin I 0.081 ng/mL (0.00-0.10) 10/28/19 09:13 B-Natriuretic Peptide 929 pg/mL (5-175) H 10/28/19 09:13 Total Protein 7.5 gm/dL (6.2-8.2) 10/28/19 09:13 Albumin 3.2 gm/dl (3.4-5.0) L 10/28/19 09:13 Assessment/Plan - Narrative Narrative: Patient was evaluated and medical chart was reviewed and decision to admit for the diagnosis of decompensated CHF with fluid overload was made. He has been transferred to the [facility] unit where he has been treated with IV diuretics to induce diuresis in an effort to decrease the fluid overload. At bedside evaluation the patient appeared to be breathing easier and reported less shortness of breath. Currently he is saturating adequately on room air and appears comfortable. He does however still have significant fluid overload worse on his lower extremities which display bilateral pedal edema. Auscultation of the patient's lungs was also positive for fine bibasilar crackles. Examination of the patient's abdomen demonstrated mild distention and significant right upper quadrant and right sided periumbilical tenderness. Patient reports right-sided abdominal pain and tenderness in that region is not new for him given his history of a bad gallbladder. He explains that he was scheduled for a cholecystectomy at [facility] and subsequently at the [facility] however due to the COVID-19 pandemic his surgery was canceled. He was told that he would be rescheduled once the facility starts doing elective surgeries again. We will admit the patient with his chronic pain medications in order to control his pain. Of note the patient had elevated liver enzymes on his labs which is most likely due to the CHF, this should improve with treatment of his CHF however we will continue to monitor this closely. Follow-up labs have been ordered for tomorrow morning. 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
[2019-10-28] MEDS: LISINOPRIL 5 MG TABLET PO SCH (17:28)
[2019-10-28] MEDS: INSULIN REGULAR, HUMAN 100 UNITS/ML VIAL SC SCH ×2 (17:31→21:18)
[2019-10-28] MEDS: FUROSEMIDE 10 MG/ML VIAL IV SCH (19:32)
[2019-10-28] MEDS: PANTOPRAZOLE SODIUM 20 MG TABLET.DR PO SCH (21:23)
[2019-10-28] MEDS: COLCHICINE 0.6 MG TABLET PO SCH (21:28)
[2019-10-28] MEDS: APIXABAN 2.5 MG TABLET PO SCH (21:28)
[2019-10-29 06:46] LABS: Albumin * 2.9 gm/dl (3.4-5.0); Anion Gap 10.6 mmol/L (6.8-13.8); Bilirubin, Total 0.8 mg/dL (0.0-1.1); Ca. Corrected For Albumin 9.6 mg/dL (8.4-10.2); Carbon Dioxide 30.9 mmol/L (24-32.6); Potassium 3.5 mmol/L (3.4-4.6); Total Protein 7.2 gm/dL (6.2-8.2)
[2019-10-29] MEDS: PANTOPRAZOLE SODIUM 20 MG TABLET.DR PO SCH (07:35)
[2019-10-29] MEDS: INSULIN REGULAR, HUMAN 100 UNITS/ML VIAL SC SCH (07:35)
[2019-10-29] MEDS: FUROSEMIDE 10 MG/ML VIAL IV SCH (07:36)
[2019-10-29] MEDS ORDERED: ASPIRIN 81 MG TABLET.DR PO SCH (09:00)
[2019-10-29] MEDS: LISINOPRIL 5 MG TABLET PO SCH (09:59)
[2019-10-29] MEDS: COLCHICINE 0.6 MG TABLET PO SCH (09:59)
[2019-10-29] MEDS: APIXABAN 2.5 MG TABLET PO SCH (09:59)
--- NOTE | 2019-10-29 10:03 | DS ---
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 Patient shows significant clinical improvement, he appears less dyspneic and denies any shortness of breath. He expressed gratitude during this morning's rounds because he is glad that he is able to draw a full breath now. Patient's pedal edema has improved and crackles on his lungs are now resolved. He also maintained stable vitals and denies any chest discomfort or any other new symptoms. Given these findings we will discharge patient home with his routine medications and an increase in his oral diuretics to avoid recurrence of fluid overload. We also had a lengthy discussion about fluid restriction patient was reminded not to consume too much fluid to avoid overload. Labs this morning revealed resolution of his acute kidney injury and downward trend in his liver enzymes, this is likely due to the improved cardiac function in response to in- hospital treatment. Patient also had elevated blood pressures on admission and has responded well to the lisinopril that he was started on, and given the benefit of an GABRIELLA inhibitor and a treatment of his CHF he will also be provided with a prescription for the medication to be taken daily. 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 Procedures Performed: none Results and Findings: Lab Pending Results 10/28/19 09:13: WBC 7.1, RBC 5.10, Hgb 15.4, Hct 46.7, MCV 91.6, MCH 30.2, MCHC 33.0, RDW 14.3 H, Plt Count 160, MPV 9.7, Immature Gran % (Auto) 0.30, Immature Gran # (Auto) 0.02, Neutrophils % 52.3, Lymphocytes % 33.1, Monocytes % 11.5 H, Eosinophils % 2.1, Basophils % 0.7, Nucleated RBC % 0.0, Neutrophils # 3.7, Lymphocytes # 2.36, Monocytes # 0.8, Eosinophils # 0.2, Absolute Basophils 0.1 10/28/19 09:13: Sodium 134, Plasma Sodium 135, Potassium 3.7, Chloride 100, Carbon Dioxide 27.5, Anion Gap 10.2, BUN 22, Creatinine 1.42 H, Est GFR (Non-Af Amer) 53 L D, BUN/Creatinine Ratio 15.5, Random Glucose 154 H, Calcium 8.9, Calcium Adj for Albumin 9.2, Total Bilirubin 0.6, AST 74 H, ALT 97 H, Alkaline Phosphatase 168, Troponin I 0.081, B-Natriuretic Peptide 929 H, Total Protein 7.5, Albumin 3.2 L 10/29/19 06:11: Sodium 138, Plasma Sodium 139, Potassium 3.5, Chloride 100, Carbon Dioxide 30.9, Anion Gap 10.6, BUN 19, Creatinine 1.19, Est GFR (Non-Af Amer) 65 D, BUN/Creatinine Ratio 16.0, Random Glucose 192 H, Calcium 9.0, Calcium Adj for Albumin 9.6, Total Bilirubin 0.8, AST 59 H, ALT 81 H, Alkaline Phosphatase 137, Total Protein 7.2, Albumin 2.9 L Discharge Location: Home Disposition: Home self-care Condition: Fair Face to Face Encounter completed per [facility] Guidelines: No Discharge Activity: Activity as tolerated Discharge Diet: Consistent carbs Referrals: Esmer Machado MD [Primary Care Provider] - Prescriptions (Any new or edited meds): Furosemide [Lasix] 80 mg PO BID #60 Lisinopril [Zestril] 5 mg PO DAILY #30 tab Transmission Status: Pending to [facility] Complete Home Medications List: Complete Home Medication List: Aspirin [Aspirin Enteric Coated] 81 mg PO QAM 03/27/15 Pantoprazole Sodium [Protonix] 40 mg PO HS PRN 03/01/16 Apixaban [Eliquis] 2.5 mg PO BID 12/17/17 Insulin Detemir [Levemir] 92 unit SQ HS PRN 02/13/18 Colchicine 0.6 mg PO BID 02/15/19 HYDROmorphone HCL [Dilaudid] 2 mg PO Q6H PRN #10 tab 06/29/19 Allopurinol [Zyloprim] 100 mg PO DAILY PRN 07/18/19 Furosemide [Lasix] 80 mg PO BID #60 10/29/19 Lisinopril [Zestril] 5 mg PO DAILY #30 tab 10/29/19
[2019-10-29 10:32] VITALS: BP 149/81
== END 2019-10-29 11:10 | disposition home or self-care (01) ==
LOC: ER 08:43 → MS 08:43
PROVIDERS: ADMIT Family Medicine; ATTEND Family Medicine
DX: I50.9 Heart failure, unspecified; E11.22 Type 2 diabetes mellitus with diabetic chronic kidney disease; N18.3 Chronic kidney disease, stage 3 (moderate); I13.0 Hypertensive heart and chronic kidney disease with heart failure and stage 1 through stage 4 chronic kidney disease, or unspecified chronic kidney disease; K76.1 Chronic passive congestion of liver; E78.5 Hyperlipidemia, unspecified; M1A.9XX0 Chronic gout, unspecified, without tophus (tophi); Z95.1 Presence of aortocoronary bypass graft
CPT/HCPCS: 36415; 71020; 71046; 73610; 80053; 83519; 83880; 84484; 85025; 93005; 96372; 96374; 96375; 99285; G0378

== ENCOUNTER 2019-12-03 21:57 | Inpatient (IN) ==
[2019-12-03 22:36] LABS: Hematocrit 46.9 % (42.0-52.0); Hemoglobin 15.9 gm/dL (13.5-18.0); Mean Corpuscular Hemoglobin 30.5 pg (27-31); Mean Corpuscular Hgb Conc 33.9 g/dl (32-36); Mean Platelet Volume 10.1 fl (8-11.3); Neutrophil # 3.6 K/mm3 (1.3-6.0); Neutrophil % 50.8 % (42-75.0); Platelet Count 137 K/mm3 (150-450); Red Blood Count 5.21 M/mm3 (4.7-6.0); Red Cell Distribution Width 14.6 % (11.5-14.0); White Blood Count 7.1 K/mm3 (4.0-10.5)
[2019-12-03] MEDS ORDERED: DICYCLOMINE HCL 20 MG TABLET PO ONE (22:40)
--- NOTE | 2019-12-03 22:40 | ERNOTE ---
Chest Pain/Cardiac HPI Date of Service: 12/03/19 Chief Complaint: Chest Pain Time Seen by Provider: 12/03/19 22:26 Source: patient Exam Limitations: no limitations Immunizations: IMMUNIZATION HX Immunizations Up to Date Yes History of Influenza Vaccine No Hx Pneumococcal Vaccination No Allergies/Adverse Reactions: Allergies nitroglycerin Adverse Reaction (Verified 12/03/19 22:11) told not to take by his neurologist, can take in an emergenc Contraindication by Dr. Gomez (neurologist [facility]), can take in case of an emergency Home Medications: HOME MEDICATIONS Aspirin [Aspirin Enteric Coated] 81 mg PO QAM 03/27/15 [Last Taken Unknown] Apixaban [Eliquis] 2.5 mg PO BID 12/17/17 [Last Taken Unknown] Insulin Detemir [Levemir] 92 unit SQ HS 02/13/18 [Last Taken 02/12/18 21:00] Colchicine 0.6 mg PO BID 02/15/19 [Last Taken Unknown] Allopurinol [Zyloprim] 100 mg PO DAILY PRN 07/18/19 [Last Taken Unknown] Amoxicillin/Potassium Clav [Amox Tr-K Clv 875-125 mg Tab] 1 tab PO TID 12/03/19 [Last Taken Unknown] Furosemide [Lasix] 40 mg PO HS 12/03/19 [Last Taken Unknown] Furosemide [Lasix] 80 mg PO DAILY 12/03/19 [Last Taken Unknown] Narrative: 64-year-old male with extensive cardiac history comes emergency room complaining of having generalized GI complaints feeling gaseous which is putting pressure on his chest during chest pain which occasionally radiates to his ear this is been told that he has a gallbladder problem and should be removed but because of his cardiac condition may have to wait he does not seem to be in any extreme distress nor does he describe the pain being worse than cramp were charley horse he has had now for 10 months has been eating regularly having regular bowel movements Date (Duration): 12/03/19 Time (Timing): 22:37 Timing: constant Severity/Quality: moderate Location: abdomen Chest Pain Radiation: jaw Activities at Onset: none Modifying Factors - Improves: Present: nothing, other Modifying Factors - Worsens: Present: nothing Associated Symptoms: Present: nausea, abdominal pain. Absent: vomiting Prior Chest Pain/Cardiac Workup: Reports: prior chest pain, heart attack, cardiac cath Medical History (Last Reviewed 12/03/19 @ 22:38 by Shadi Christy MD) Afib CHF (congestive heart failure) CVA (cerebral vascular accident) Diabetes Hyperlipidemia Myocardial infarct Pacemaker Surgical History: Surgical History (Last Reviewed 12/03/19 @ 22:38 by Shadi Christy MD) H/O esophagogastroduodenoscopy EGD with Biopsies on 03/09/19 @[place] History of cardiac radiofrequency ablation Onset Date: ~05/01/19 History of carotid endarterectomy History of heart artery stent Hx of CABG S/P ablation of atrial fibrillation Family History: Family History (Last Reviewed 12/03/19 @ 22:11 by Elisa Melissa, RN) Other No pertinent family history Social History: (Last Reviewed 12/03/19 @ 22:11 by Elisa Melissa, RN) Tobacco: Smoking Status: Former smoker Alcohol: Alcohol type: beer alcohol intake frequency: 0-2 drinks per day Substance Use: substance use type: does not use Physical Exam - Physical Exam General Appearance: Present: wd/wn, alert, no apparent distress, mild distress Head Exam: Present: normal inspection Eye Exam: Normal inspection: bilateral, PERRL: bilateral, EOMI: bilateral Ears, Nose, Throat: Present: normal ENT inspection Neck: Present: normal inspection Respiratory: Present: no respiratory distress, normal breath sounds Cardiovascular/Chest: Present: regular rate, rhythm Gastrointestinal/Abdominal: Present: normal bowel sounds, nontender, nondistended, soft, no organomegaly, abnormal bowel sounds. Absent: tenderness Back Exam: Present: normal inspection Extremity Exam: Present: normal inspection Neurological Exam: Present: alert, oriented Skin Exam: Present: normal color, warm/dry Progress - Results and Orders Patient's Lab Results:: I have reviewed the patient's lab results. Results and Orders: Laboratory Tests 12/03/19 12/03/19 12/03/19 22:26 22:26 22:26 WBC 7.1 RBC 5.21 Hgb 15.9 Hct 46.9 MCV 90.0 MCH 30.5 MCHC 33.9 RDW 14.6 H Plt Count 137 L Neutrophils % 50.8 Lymphocytes % 36.2 PT 11.4 H INR (Anticoag Therapy) 1.16 H PTT ([place]) 26.3 Sodium 134 Plasma Sodium 137 Chloride 97 Carbon Dioxide 29.4 Anion Gap 10.9 BUN 16 Creatinine 1.12 Est GFR (Non-Af Amer) 70 BUN/Creatinine Ratio 14.3 Random Glucose 269 H Calcium 8.9 Calcium Adj for Albumin 9.4 Total Bilirubin 0.6 AST 47 ALT 69 H Alkaline Phosphatase 208 H Troponin I 0.107 H Total Protein 7.4 Albumin 3.0 L - Vital Signs Patient's Vital Signs:: I have reviewed the patient's vital signs. Vital Signs: Vital Signs 12/03/19 22:04 Temperature 37.0 C Pulse Rate 78 Respiratory Rate 17 Blood Pressure 169/85 H O2 Sat by Pulse Oximetry 97 Elevated blood pressure - EKG EKG #1 EKG read: Reviewed by me EKG Comments: Electronic ventricular pacemaker heart rate 75 no acute changes when compared to 610 - X-Ray X-Ray #1 X-Ray: chest Interpretation: Interp. by me X-ray Comments: Cardiomegaly no acute changes compared to 10 days ago mild CHF - Progress/Reassessment Chief Complaint: Chest Pain Plan - Plan Plan: Patient's troponin is slightly elevated therefore will consider transfer to [facility] Dr. Peguero for cardiology evaluation, Patient was turned down [facility] due to no beds [facility] also turned him down due to his GI issue and [facility] also trending down they have no ICU beds so the plan right now is to monitor the patient in the ER repeat his troponin in several hours and if still elevated try transfer again if down discharge Departure Clinical Impression: NSTEMI (non-ST elevated myocardial infarction), Elevated troponin level - Departure Disposition: Still a patient Condition: Stable Referrals: Esmer Machado MD [Primary Care Provider] -
[2019-12-03 22:43] LABS: Prothrombin Time (Patient) 11.4 Seconds (9.1-10.7)
[2019-12-03 22:45] LABS: INR 1.16 INR (0.92-1.08); Partial Thrombolplastin Time 26.3 Seconds (24-32)
[2019-12-03 22:50] LABS: Troponin I 0.107 ng/mL (0.00-0.10)
[2019-12-03 22:53] LABS: Anion Gap 10.9 mmol/L (6.8-13.8); BUN/Creatinine Ratio 14.3 (9.0-21.6); Bilirubin, Total 0.6 mg/dL (0.0-1.1); Ca. Corrected For Albumin 9.4 mg/dL (8.4-10.2); Calcium * 8.9 mg/dL (7.9-10.9); Carbon Dioxide 29.4 mmol/L (24-32.6); Potassium 3.3 mmol/L (3.4-4.6); Total Protein 7.4 gm/dL (6.2-8.2)
[2019-12-04] MEDS ORDERED: HYDROcodone/ACETAMINOPHEN 1 EACH TABLET PO ONE (00:06)
[2019-12-04] MEDS ORDERED: ASPIRIN 325 MG TABLET.DR PO ONE (06:49)
[2019-12-04] MEDS ORDERED: FUROSEMIDE 10 MG/ML VIAL IV ONE (06:50)
[2019-12-04] MEDS ORDERED: AMOX TR/POTASSIUM CLAVULANATE 875 MG TABLET PO ONE (07:06)
[2019-12-04] MEDS ORDERED: COLCHICINE 0.6 MG TABLET PO ONE (07:06)
[2019-12-04] MEDS ORDERED: AMOX TR/POTASSIUM CLAVULANATE 875 MG TABLET ONE (07:14)
[2019-12-04] MEDS ORDERED: COLCHICINE 0.6 MG TABLET ONE (07:14)
[2019-12-04] MEDS ORDERED: APIXABAN 2.5 MG TABLET PO ONE (07:15)
[2019-12-04] MEDS ORDERED: ASPIRIN 81 MG TABLET.DR PO ONE (07:30)
[2019-12-04] MEDS ORDERED: DICYCLOMINE HCL 20 MG TABLET PO ONE (11:29)
--- NOTE | 2019-12-04 12:27 | ERNOTE ---
Chest Pain/Cardiac HPI Date of Service: 12/04/19 Chief Complaint: Chest Pain Time Seen by Provider: 12/03/19 22:26 Source: patient Exam Limitations: no limitations Immunizations: IMMUNIZATION HX Immunizations Up to Date Yes History of Influenza Vaccine No Hx Pneumococcal Vaccination No Allergies/Adverse Reactions: Allergies nitroglycerin Adverse Reaction (Verified 12/03/19 22:11) told not to take by his neurologist, can take in an emergenc Contraindication by Dr. Gomez (neurologist [facility]), can take in case of an emergency Home Medications: HOME MEDICATIONS Aspirin [Aspirin Enteric Coated] 81 mg PO QAM 03/27/15 [Last Taken Unknown] Apixaban [Eliquis] 2.5 mg PO BID 12/17/17 [Last Taken Unknown] Insulin Detemir [Levemir] 92 unit SQ HS 02/13/18 [Last Taken 02/12/18 21:00] Colchicine 0.6 mg PO BID 02/15/19 [Last Taken Unknown] Allopurinol [Zyloprim] 100 mg PO DAILY PRN 07/18/19 [Last Taken Unknown] Amoxicillin/Potassium Clav [Amox Tr-K Clv 875-125 mg Tab] 1 tab PO TID 12/03/19 [Last Taken Unknown] Furosemide [Lasix] 40 mg PO HS 12/03/19 [Last Taken Unknown] Furosemide [Lasix] 80 mg PO DAILY 12/03/19 [Last Taken Unknown] Narrative: The patient was initially seen by Dr. Mata. Please see his note. The patient was initially quite angry and not answering questions. Later he was more cooperative but would answer tangentially. He said that he is here with abdominal and chest pain. He said the pain began in the morning. He says the abdominal pain he has been there for 11 months. It sounds like he has had a work-up at [facility] and he says that he is supposed to follow-up there in April. It sounds like he has diseased gallbladder and has not been a surgical candidate due to his heart disease. He has had CABG and stents. He had a nuclear medicine stress test on 11/10 that showed a small area of stress induced diminished myocardial perfusion suggesting stress-induced ischemia of the periapical region. Prominent fixed defect inferior wall and inferior aspect of the lateral wall suggesting underlying infarct. Clinical correlation necessary. Global hypokinesis with abnormal left ventricular ejection fraction of only 17%. Recommend consideration of further ischemic work-up. The patient points to the left of his sternum as the area of pain. He does not describe it for me. He does not really give any further information. He initially had an elevated troponin. Multiple attempts at transfer were done overnight. Repeat troponin this morning was similar to slightly elevated. The third troponin is in the normal range. I spoke with digital media buyer at [facility]. He suggested that the patient need to be admitted and ultimately transferred to [facility]. Review of Systems - Narrative Narrative: Limited due to patient's refusal to answer questions. Medical History (Last Reviewed 12/04/19 @ 12:22 by Fernando Pinedo MD) CHF (congestive heart failure) Afib CVA (cerebral vascular accident) Diabetes Hyperlipidemia Myocardial infarct Pacemaker Surgical History: Surgical History (Last Reviewed 12/04/19 @ 12:22 by Fernando Pinedo MD) H/O esophagogastroduodenoscopy EGD with Biopsies on 03/09/19 @[place] History of cardiac radiofrequency ablation Onset Date: ~05/01/19 History of carotid endarterectomy History of heart artery stent Hx of CABG S/P ablation of atrial fibrillation Family History: Family History (Last Reviewed 12/04/19 @ 12:22 by Fernando Pinedo MD) Other No pertinent family history Social History: (Last Reviewed 12/04/19 @ 12:22 by Fernando Pinedo MD) Tobacco: Smoking Status: Former smoker Alcohol: Alcohol type: beer alcohol intake frequency: 0-2 drinks per day Substance Use: substance use type: does not use Physical Exam - Physical Exam General Appearance: Present: alert, no apparent distress, obese, other - He was initially angry. He was much more cooperative later on. Head Exam: Present: normal inspection, no evidence of injury Eye Exam: Normal inspection: bilateral Ears, Nose, Throat: Present: normal ENT inspection Neck: Present: normal inspection, supple Respiratory: Present: no respiratory distress, no accessory muscle use Extremity Exam: Present: pedal edema Neurological Exam: Present: alert, oriented, normal mood/affect - See above, no motor/sensory deficits - No gross lateralizing neurologic deficit Skin Exam: Present: normal color Progress - Date and Time Seen: Date and Time: 12/04/19 12:17 The third troponin came back lower. I spoke with the digital media buyer on-call, Dr. Pena, at the [facility]. He feels that with the patient's heart disease and recent abnormal nuclear medicine scan, he needs to be seen at [facility]. He feels that the patient needs to be admitted but he is not critical enough to admit him before others waiting for beds at [facility]. I spoke with Dr. Goodman who was doing super triage today at [facility]. They have no beds available. They have 24 people in the ER waiting for beds. I spoke with Dr. Do. He suggested [place]. It appears that Dr. Christy has already called them and they do not have beds either. The patient says that he will check out AMA before being transferred to [place]. Dr. Do kindly agrees to keep the patient here until a bed is available. 12/04/19 12:27 The patient received Bentyl for his abdominal pain and said that it helped tremendously. He said the pain recurred and he was given a second dose prior to being sent to the floor. - Results and Orders Patient's Lab Results:: I have reviewed the patient's lab results. - Vital Signs Patient's Vital Signs:: I have reviewed the patient's vital signs. Vital Signs: Vital Signs 12/04/19 04:15 12/04/19 04:30 12/04/19 04:45 Temperature Pulse Rate 75 75 75 Respiratory Rate 16 20 14 Blood Pressure 166/91 H 162/96 H 150/83 H O2 Sat by Pulse Oximetry 94 94 94 12/04/19 05:00 12/04/19 05:15 12/04/19 05:30 Temperature Pulse Rate 75 75 75 Respiratory Rate 17 14 14 Blood Pressure 168/93 H 153/89 H 165/94 H O2 Sat by Pulse Oximetry 94 94 94 12/04/19 05:45 12/04/19 06:00 12/04/19 06:30 Temperature 36.2 C Pulse Rate 75 76 93 Respiratory Rate 14 20 14 Blood Pressure 153/89 H 141/92 H 132/107 H O2 Sat by Pulse Oximetry 93 95 95 12/04/19 06:46 12/04/19 07:02 12/04/19 07:20 Temperature Pulse Rate 92 75 74 Respiratory Rate 17 15 Blood Pressure 164/94 H 138/89 181/87 H O2 Sat by Pulse Oximetry 96 95 12/04/19 07:55 12/04/19 08:14 12/04/19 08:48 Temperature Pulse Rate 74 111 H 76 Respiratory Rate 18 24 H 16 Blood Pressure 161/109 H 170/96 H 162/99 H O2 Sat by Pulse Oximetry 95 95 95 12/04/19 09:27 12/04/19 09:55 12/04/19 10:25 Temperature 36.2 C Pulse Rate 75 75 75 Respiratory Rate 16 14 16 Blood Pressure 193/100 H 168/96 H 168/96 H O2 Sat by Pulse Oximetry 95 96 95 12/04/19 11:05 12/04/19 11:40 12/04/19 12:06 Temperature 36.8 C Pulse Rate 75 75 75 Respiratory Rate 18 20 22 H Blood Pressure 184/104 H 167/97 H 168/97 H O2 Sat by Pulse Oximetry 95 94 95 - Progress/Reassessment Chief Complaint: Chest Pain Departure Clinical Impression: Elevated troponin level, Chest pain, Chronic abdominal pain, CHF (congestive heart failure), Diabetes mellitus type 2 in obese, Coronary artery disease, Gallbladder disease - Departure Disposition: Still a patient Condition: Stable Referrals: Esmer Machado MD [Primary Care Provider] -
[2019-12-04] MEDS ORDERED: ENOXAPARIN SODIUM 40 MG/0.4 ML SYRG SC SCH (13:30)
[2019-12-04] MEDS ORDERED: ALLOPURINOL 100 MG TABLET PO PRN (13:31)
--- NOTE | 2019-12-04 20:03 | HP ---
Chief Complaint - Chief Complaint Date of Service: 12/04/19 Time of Service: 18:30 Chief Complaint: Chest pain, abdominal bloating and distention and pain, history of vasculopathy, coronary artery disease. History of Present Illness: Hi Zelaya is a 64-year-old male who appears older than his stated years and is in mild to moderate distress at the time of my exam due to abdominal bloating cramping and distention. He has a longstanding history of severe coronary artery disease and a more recent history of abdominal bloating and distention. He reportedly has a 19% ejection fraction. He reports having a three-vessel coronary artery bypass graft. He is also had 9 stents placed 3 of which are in the right coronary artery and the others are dispersed to other coronary arteries. He did quit smoking and states he does not have any cravings for that. He reports having had 3 strokes and he thinks 1 of them must have taken out his craving area in the brain so that he no longer craves nicotine. The patient had been in our emergency room for 13 hours before they contacted me as they were trying to get him transferred to the [facility] where his cardiologists are. They are on diversion and are full. I had 23 people waiting in their emergency room for admission into the hospital. He was placed on a transfer waiting list but were told it will be a minimum of 2 days and possibly 3 before they will be able to accommodate him. Patient refused to go to [place] and [facility] refused to accept him because he needed higher care than they were able to provide there. So I admitted him here mostly for observation and serial EKGs and lab work pending his transfer. Medical History (Last Updated 12/04/19 @ 14:04 by Kristine Phillips RN) CHF (congestive heart failure) Afib CVA (cerebral vascular accident) Diabetes Hyperlipidemia Myocardial infarct Pacemaker with defibrillator Surgical History: Surgical History (Last Reviewed 12/04/19 @ 14:15 by Kristine Phillips RN) H/O esophagogastroduodenoscopy EGD with Biopsies on 03/09/19 @[place] History of cardiac radiofrequency ablation Onset Date: ~05/01/19 History of carotid endarterectomy History of heart artery stent Hx of CABG S/P ablation of atrial fibrillation Family History: Family History (Last Reviewed 12/04/19 @ 14:16 by Kristine Phillips RN) Other No pertinent family history Social History: (Last Reviewed 12/04/19 @ 14:20 by Kristine Phillips RN) Social History: mcc: No Marital status: lives independently: Yes Highest education level completed: some college, no degree Service: No Tobacco: Smoking Status: Former smoker Alcohol: Alcohol type: beer alcohol intake frequency: holiday/special occasion Substance Use: substance use type: does not use Dietary Habits: caffeine: Yes Type: coffee Review Of Systems (GEN) - Review of Systems Generalized/Overall Review: Present: Weakness, Malaise EENTM: Present: No Symptoms Reported Respiratory: Present: Shortness of Breath Cardiac: Present: Chest Pain, Edema, Palpitations Abdominal: Present: Abdominal Pain, Other - Abdominal cramping and bloating with distention Genitourinary: Present: No Symptoms Reported Musculoskeletal: Present: No Symptoms Reported Neurological: Present: No Symptoms Reported Skin: Present: No Symptoms Reported Endocrine: Present: No Symptoms Reported Misc: All systems neg except as marked Additional Comments: Hi reports that he is having normal formed and rather large stools the last few days. Still he remains bloated and having abdominal cramping. He is received 2 doses of dicyclomine both of which help with the cramping. I will continue that. Immunizations: IMMUNIZATION HX Immunizations Up to Date Yes History of Influenza Vaccine No Hx Pneumococcal Vaccination No Allergies/Adverse Reactions: Allergies Allergy/AdvReac Type Severity Reaction Status Date / Time nitroglycerin AdvReac told not Verified 12/04/19 14:21 to take by his neurologist, can take in an emergenc Home Medications: HOME MEDICATIONS Aspirin [Aspirin Enteric Coated] 81 mg PO QAM 03/27/15 [Last Taken Unknown] Apixaban [Eliquis] 2.5 mg PO BID 12/17/17 [Last Taken Unknown] Insulin Detemir [Levemir] 92 unit SQ HS 02/13/18 [Last Taken 02/12/18 21:00] Colchicine 0.6 mg PO BID 02/15/19 [Last Taken Unknown] Allopurinol [Zyloprim] 100 mg PO DAILY PRN 07/18/19 [Last Taken Unknown] Amoxicillin/Potassium Clav [Amox Tr-K Clv 875-125 mg Tab] 1 tab PO BID 12/03/19 [Last Taken Unknown] Furosemide [Lasix] 40 mg PO HS 12/03/19 [Last Taken Unknown] Furosemide [Lasix] 80 mg PO DAILY 12/03/19 [Last Taken Unknown] Exam - Exam Vital Signs: Vital Signs - Last Taken Temp 36.9 C 12/04/19 17:22 Pulse 75 12/04/19 17:22 Resp 20 12/04/19 17:22 BP 156/84 H 12/04/19 17:22 Pulse Ox 96 12/04/19 17:22 Constitutional: Present: Alert, Oriented x3, Cooperative, Well developed, Well nourished, Moderate distress ENT Exam: Present: normal ENT inspection, hearing grossly normal, pharynx normal, TMs normal Eye Exam: bilateral eye: normal inspection, PERRL, EOMI Neck: Present: non-tender, full range of motion, supple, normal inspection, trachea midline Back Exam: Present: normal inspection, no CVA tenderness, no vertebral tenderness Breasts: Present: Exam deferred Respiratory: Present: chest non-tender, rhonchi, wheezing, expiration (prolonged) Cardiovascular/Chest: Present: normal peripheral pulses, no chest tenderness, no JVD, no murmur, gallop/S4, irregularly irregular, edema Peripheral Pulses: carotid (R): 2+, carotid (L): 2+, radial (R): 2+, radial (L): 2+ Abdomen: Present: Normal bowel sounds, no rebound tenderness, no hepatospenomegaly, no masses, tender, guarding, firm, distended /Rectal: Present: Exam deferred Extremity: Present: normal range of motion, non-tender, normal inspection, no pedal edema, no calf tenderness, normal capillary refill Skin Exam: Present: normal color, warm/dry, no cyanosis Lymphatic: Present: no adenopathy Neurologic: Present: 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 nml as tested, normal cerebellar test, no motor/sensory deficits, alert, normal mood/affect, oriented x 3 Appearance: Present: appropriate appearance, appropriate insight, neat, no memory impairment Eye contact: Present: cooperative, good eye contact, normal speech Thoughts: Present: normal thought pattern, no apparent hallucination Diagnostic Studies: Abnormal Lab Results 12/03/19 12/03/19 12/03/19 Range/Units 22:26 22:26 22:26 RDW 14.6 H (11.5-14.0) % Plt Count 137 L (150-450) K/mm3 Monocytes % 9.1 H (0.0-9) % Basophils % 1.1 H (0.0-1.0) % PT 11.4 H (9.1-10.7) Seconds INR (Anticoag Therapy) 1.16 H (0.92-1.08) INR Potassium 3.3 L (3.4-4.6) mmol/L Random Glucose 269 H (70-110) mg/dL ALT 69 H (19-67) U/L Alkaline Phosphatase 208 H (50-170) U/L Troponin I 0.107 H (0.00-0.10) ng/mL B-Natriuretic Peptide 1003 H (5-175) pg/mL Albumin 3.0 L (3.4-5.0) gm/dl 12/04/19 Range/Units 06:10 RDW (11.5-14.0) % Plt Count (150-450) K/mm3 Monocytes % (0.0-9) % Basophils % (0.0-1.0) % PT (9.1-10.7) Seconds INR (Anticoag Therapy) (0.92-1.08) INR Potassium (3.4-4.6) mmol/L Random Glucose (70-110) mg/dL ALT (19-67) U/L Alkaline Phosphatase (50-170) U/L Troponin I 0.110 H (0.00-0.10) ng/mL B-Natriuretic Peptide (5-175) pg/mL Albumin (3.4-5.0) gm/dl Laboratory Results WBC 7.1 K/mm3 (4.0-10.5) 12/03/19: RBC 5.21 M/mm3 (4.7-6.0) 12/03/19: Hgb 15.9 gm/dL (13.5-18.0) 12/03/19 22: Hct 46.9 % (42.0-52.0) 12/03/19 22: MCV 90.0 fl (78-100) 12/03/19: MCH 30.5 pg (27-31) 12/03/19: MCHC 33.9 g/dl (32-36) 12/03/19: RDW 14.6 % (11.5-14.0) H 12/03/19: Plt Count 137 K/mm3 (150-450) L 12/03/19: MPV 10.1 fl (8-11.3) 12/03/19: Immature Gran % (Auto) 0.30 % (0.001-0.429) 12/03/19: Immature Gran # (Auto) 0.02 K/mm3 (0.000-0.0310) 12/03/19: Neutrophils % 50.8 % (42-75.0) 12/03/19: Lymphocytes % 36.2 % (20-51) 12/03/19: Monocytes % 9.1 % (0.0-9) H 12/03/19: Eosinophils % 2.5 % (0.0-3.0) 12/03/19: Basophils % 1.1 % (0.0-1.0) H 12/03/19: Nucleated RBC % 0.0 k/mm3 (0-1) 12/03/19: Neutrophils # 3.6 K/mm3 (1.3-6.0) 12/03/19: Lymphocytes # 2.56 k/mm3 (1.5-3.5) 12/03/19: Monocytes # 0.6 k/mm3 (0.0-1.0) 12/03/19: Eosinophils # 0.2 k/mm3 (0.0-0.7) 12/03/19: Absolute Basophils 0.1 k/mm3 (0.0-0.1) 12/03/19: PT 11.4 Seconds (9.1-10.7) H 12/03/19: INR (Anticoag Therapy) 1.16 INR (0.92-1.08) H 12/03/19: PTT ([place]) 26.3 Seconds (24-32) 12/03/19 22: Sodium 134 mmol/L (132-142) 12/03/19: Plasma Sodium 137 mmol/L (130-142) 07/16/20 22:26 Potassium 3.3 mmol/L (3.4-4.6) L 12/03/19 22:26 Chloride 97 mmol/L (97-106) 12/03/19 22:26 Carbon Dioxide 29.4 mmol/L (24-32.6) 12/03/19 22:26 Anion Gap 10.9 mmol/L (6.8-13.8) 12/03/19 22:26 BUN 16 mg/dL (6-23) 12/03/19 22: Creatinine 1.12 mg/dL (0.4-1.4) 12/03/19 22:26 Est GFR (Non-Af Amer) 70 mL/min (60-130) 12/03/19 22: BUN/Creatinine Ratio 14.3 (9.0-21.6) 12/03/19 22: Random Glucose 269 mg/dL (70-110) H 12/03/19 22: Calcium 8.9 mg/dL (7.9-10.9) 12/03/19 22: Calcium Adj for Albumin 9.4 mg/dL (8.4-10.2) 12/03/19 22: Total Bilirubin 0.6 mg/dL (0.0-1.1) 12/03/19 22:26 AST 47 U/L (0-48) 12/03/19 22:26 ALT 69 U/L (19-67) H 12/03/19 22:26 Alkaline Phosphatase 208 U/L (50-170) H 12/03/19 22:26 Troponin I 0.089 ng/mL (0.00-0.10) 12/04/19 09:00 B-Natriuretic Peptide 1003 pg/mL (5-175) H 12/03/19 22:26 Total Protein 7.4 gm/dL (6.2-8.2) 12/03/19 22:26 Albumin 3.0 gm/dl (3.4-5.0) L 12/03/19 22:26 SARS-CoV-2 (PCR) Not detected (ND) 12/04/19 00:22 Assessment/Plan - Narrative Narrative: 1. Fleets enema tonight 2. Add dicyclomine 20 mg p.o. 4 times daily 3. Continue usual home medications [facility] 5. 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
[2019-12-04] MEDS: INSULIN GLARGINE,HUM.REC.ANLOG 100 UNITS/ML VIAL SC SCH (21:39)
[2019-12-04] MEDS: FUROSEMIDE 40 MG TABLET PO SCH (21:40)
[2019-12-04] MEDS: APIXABAN 2.5 MG TABLET PO SCH (21:40)
[2019-12-04] MEDS: AMOX TR/POTASSIUM CLAVULANATE 875 MG TABLET PO SCH (21:40)
[2019-12-04] MEDS: COLCHICINE 0.6 MG TABLET PO SCH (21:41)
[2019-12-04] MEDS: DICYCLOMINE HCL 20 MG TABLET PO SCH (21:44)
[2019-12-05 06:47] LABS: Hematocrit 47.1 % (42.0-52.0); Mean Cell Volume 91.5 fl (78-100); Mean Corpuscular Hemoglobin 31.1 pg (27-31); Mean Platelet Volume 10.2 fl (8-11.3); Neutrophil # 2.6 K/mm3 (1.3-6.0); Neutrophil % 45.6 % (42-75.0); Platelet Count 137 K/mm3 (150-450); Red Blood Count 5.15 M/mm3 (4.7-6.0); Red Cell Distribution Width 14.8 % (11.5-14.0); White Blood Count 5.6 K/mm3 (4.0-10.5)
[2019-12-05 06:58] LABS: Albumin * 2.8 gm/dl (3.4-5.0); Anion Gap 8.7 mmol/L (6.8-13.8); BUN/Creatinine Ratio 13.1 (9.0-21.6); Bilirubin, Total 0.6 mg/dL (0.0-1.1); Ca. Corrected For Albumin 9.4 mg/dL (8.4-10.2); Calcium * 8.8 mg/dL (7.9-10.9); Carbon Dioxide 30.6 mmol/L (24-32.6); Potassium 3.3 mmol/L (3.4-4.6); Total Protein 6.8 gm/dL (6.2-8.2)
[2019-12-05] MEDS: COLCHICINE 0.6 MG TABLET PO SCH ×2 (09:23→21:06)
[2019-12-05] MEDS: INSULIN GLARGINE,HUM.REC.ANLOG 100 UNITS/ML VIAL SC SCH ×2 (09:23→21:09)
[2019-12-05] MEDS: APIXABAN 2.5 MG TABLET PO SCH ×2 (09:23→21:06)
[2019-12-05] MEDS: ASPIRIN 81 MG TABLET.DR PO SCH (09:23)
[2019-12-05] MEDS: AMOX TR/POTASSIUM CLAVULANATE 875 MG TABLET PO SCH ×2 (09:23→21:06)
[2019-12-05] MEDS: DICYCLOMINE HCL 20 MG TABLET PO SCH ×4 (09:23→21:06)
--- NOTE | 2019-12-05 11:05 | PN ---
Subjective - Date and Time Seen Date: 12/05/19 Time: 09:00 Subjective Narrative: Hi Zelaya has had an uneventful night. He slept fairly well. He is sitting up on the edge of the bed is fully conversant with no signs of distress. He is having fleeting episodes of left chest pain radiating into his jaw but they only last a few seconds and then dissipate. His abdomen is feeling some better this morning and knows the dicyclomine has helped it a lot. He had a fleets enema last evening and he did pass some stool and some flatus from that which made him feel some better. His lab work this morning is stable. He has been ambulatory without difficulty. We are awaiting transfer approval from the [facility]. Objective - Review of Systems Generalized/Overall Review: Reports: Weakness, Malaise EENTM: Reports: No Symptoms Reported Respiratory: Reports: No Symptoms Reported Cardiac: Reports: Chest Pain Abdominal: Reports: Abdominal Pain, Other - Less bloating and distention this morning Genitourinary Symptoms: Reports: No Symptoms Reported Musculoskeletal Complaints: Reports: No Symptoms Reported Neurological: Reports: No Symptoms Reported Skin: Reports: No Symptoms Reported Endocrine: Reports: No Symptoms Reported - Vitals Vitals: Last Vital Signs Temp 36.5 C 12/05/19 10:51 Pulse 78 12/05/19 10:51 Resp 18 12/05/19 10:51 BP 160/94 H 12/05/19 10:51 Pulse Ox 96 12/05/19 10:51 - Abnormal Lab Findings Abnormal Lab Findings: Abnormal Lab Results 12/05/19 12/05/19 Range/Units 06:18 06:18 MCH 31.1 H (27-31) pg RDW 14.8 H (11.5-14.0) % Plt Count 137 L (150-450) K/mm3 Monocytes % 11.0 H (0.0-9) % Potassium 3.3 L (3.4-4.6) mmol/L Random Glucose 232 H (70-110) mg/dL AST 63 H (0-48) U/L ALT 77 H (19-67) U/L Albumin 2.8 L (3.4-5.0) gm/dl - EKG/Xray Findings EKG read: Reviewed by me Interpretation: Reviewed by me - Exam Constitutional: Present: Alert, Oriented x3, Cooperative, Well developed, Well nourished, No distress ENT Exam: Present: normal ENT inspection Neck: Present: non-tender, full range of motion, supple, normal inspection Breasts: Present: Exam deferred Respiratory: Present: chest non-tender, lungs clear, normal breath sounds Cardiovascular/Chest: Present: normal peripheral pulses, bradycardia - Intermittent Abdomen: Present: tender, distended Extremity: Present: normal range of motion, non-tender, normal inspection, no pedal edema, no calf tenderness, normal capillary refill Skin Exam: Present: normal color, warm/dry, no cyanosis Lymphatic: Present: no adenopathy 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 Continue observation. He is not comfortable going home today and we are still awaiting transfer arrangements to the [facility]. 2. Continue current medicines and therapy 3. Repeat lab tomorrow morning 4. Ambulate in halls to tolerance. - Problems/Diagnosis (1) Coronary artery disease Problem: Chronic Qualifiers: Coronary Disease-Associated Artery/Lesion type: due to calcified coronary lesion Qualified Code(s): I25.10 - Atherosclerotic heart disease of [place] coronary artery without angina pectoris; I25.84 - Coronary atherosclerosis due to calcified coronary lesion (2) Elevated troponin Problem: Acute (3) Chronic abdominal pain Problem: Acute (4) Shortness of breath Problem: Acute (5) Diabetes mellitus Problem: Chronic Qualifiers: Diabetes mellitus type: type 2 Diabetes mellitus slps insulin use: with intermediate use Diabetes mellitus complication status: with circulatory complication Diabetes mellitus complication detail: with other circulatory complications Qualified Code(s): E11.59 - Type 2 diabetes mellitus with other circulatory complications; 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
[2019-12-05] MEDS: FUROSEMIDE 40 MG TABLET PO SCH (21:07)
[2019-12-06] MEDS: APIXABAN 2.5 MG TABLET PO SCH ×2 (09:45→20:39)
[2019-12-06] MEDS: ASPIRIN 81 MG TABLET.DR PO SCH (09:45)
[2019-12-06] MEDS: DICYCLOMINE HCL 20 MG TABLET PO SCH ×4 (09:45→20:38)
[2019-12-06] MEDS: AMOX TR/POTASSIUM CLAVULANATE 875 MG TABLET PO SCH ×2 (09:45→20:38)
[2019-12-06] MEDS: INSULIN GLARGINE,HUM.REC.ANLOG 100 UNITS/ML VIAL SC SCH ×2 (09:45→20:35)
[2019-12-06] MEDS: COLCHICINE 0.6 MG TABLET PO SCH ×2 (09:45→20:38)
--- NOTE | 2019-12-06 10:10 | PN ---
Subjective - Date and Time Seen Date: 12/06/19 Time: 08:35 Subjective Narrative: Hi had an uneventful night. His blood pressure did get elevated last night about 921 at 183/102. This morning's blood pressure is 154/80. Pulse is 76, respiratory rate 18 and unlabored, O2 sat is 94%. Skin is warm dry and pink. He is sitting up on the edge of the bed and still having fleeting episodes of chest pain. Otherwise she does not appear to be in any distress. Still waiting on transfer arrangements from [facility]. Objective - Review of Systems Generalized/Overall Review: Reports: No Symptoms Reported EENTM: Reports: No Symptoms Reported Respiratory: Reports: No Symptoms Reported Cardiac: Reports: Chest Pain, Palpitations Abdominal: Reports: No Symptoms Reported Genitourinary Symptoms: Reports: No Symptoms Reported Musculoskeletal Complaints: Reports: No Symptoms Reported Neurological: Reports: Parasthesia Skin: Reports: No Symptoms Reported Endocrine: Reports: No Symptoms Reported - Vitals Vitals: Last Vital Signs Temp 36 C 12/06/19 09:56 Pulse 76 12/06/19 09:56 Resp 18 12/06/19 09:56 BP 144/71 12/06/19 09:56 Pulse Ox 94 12/06/19 09:56 - EKG/Xray Findings EKG: atrial fibrillation EKG read: Reviewed by me XRAY: chest Interpretation: Reviewed by me - Exam Constitutional: Present: Alert, Oriented x3, Cooperative, Well developed, Well nourished, No distress ENT Exam: Present: normal ENT inspection, hearing grossly normal, pharynx normal, TMs normal Neck: Present: non-tender, full range of motion, supple Breasts: Present: Exam deferred Respiratory: Present: chest non-tender, lungs clear, normal breath sounds, no respiratory distress Cardiovascular/Chest: Present: normal peripheral pulses, no chest tenderness, no edema, no gallop, no JVD, gallop/S4, irregularly irregular Abdomen: Present: Normal bowel sounds, soft, nontender, nondistended, no rebound tenderness, no hepatospenomegaly, no masses /Rectal: Present: Exam deferred Extremity: Present: normal range of motion, non-tender, normal inspection, no pedal edema Skin Exam: Present: normal color, warm/dry, no cyanosis Lymphatic: Present: no adenopathy 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 Continue observation status and current medications. I will increase his blood pressure medicines to bring it down. 2. Will be ready to transfer as soon as [facility] gives us approval 3. CBC, CMP, EKG, chest x-ray tomorrow morning - Problems/Diagnosis (1) Coronary artery disease Problem: Chronic Qualifiers: Coronary Disease-Associated Artery/Lesion type: due to calcified coronary lesion Qualified Code(s): I25.10 - Atherosclerotic heart disease of [place] coronary artery without angina pectoris; I25.84 - Coronary atherosclerosis due to calcified coronary lesion (2) Elevated troponin Problem: Acute (3) Chronic abdominal pain Problem: Acute (4) Shortness of breath Problem: Acute (5) Diabetes mellitus Problem: Chronic Qualifiers: Diabetes mellitus type: type 2 Diabetes mellitus 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
[2019-12-06] MEDS: FUROSEMIDE 40 MG TABLET PO SCH (20:39)
[2019-12-07 06:44] LABS: Hematocrit 47.6 % (42.0-52.0); Hemoglobin 15.8 gm/dL (13.5-18.0); Mean Cell Volume 91.7 fl (78-100); Mean Corpuscular Hemoglobin 30.4 pg (27-31); Mean Corpuscular Hgb Conc 33.2 g/dl (32-36); Mean Platelet Volume 10.1 fl (8-11.3); Neutrophil # 3.2 K/mm3 (1.3-6.0); Neutrophil % 46.9 % (42-75.0); Platelet Count 144 K/mm3 (150-450); Red Blood Count 5.19 M/mm3 (4.7-6.0); Red Cell Distribution Width 14.8 % (11.5-14.0); White Blood Count 6.7 K/mm3 (4.0-10.5)
[2019-12-07 06:56] LABS: Albumin * 2.7 gm/dl (3.4-5.0); Anion Gap 8.3 mmol/L (6.8-13.8); BUN/Creatinine Ratio 15.1 (9.0-21.6); Bilirubin, Total 0.6 mg/dL (0.0-1.1); Ca. Corrected For Albumin 9.4 mg/dL (8.4-10.2); Calcium * 8.7 mg/dL (7.9-10.9); Carbon Dioxide 31.2 mmol/L (24-32.6); Potassium 3.5 mmol/L (3.4-4.6); Total Protein 6.8 gm/dL (6.2-8.2)
[2019-12-07] MEDS ORDERED: FUROSEMIDE 80 MG TABLET PO SCH (09:15)
[2019-12-07] MEDS: COLCHICINE 0.6 MG TABLET PO SCH (09:56)
[2019-12-07] MEDS: APIXABAN 2.5 MG TABLET PO SCH (09:56)
[2019-12-07] MEDS: DICYCLOMINE HCL 20 MG TABLET PO SCH ×2 (09:56→12:39)
[2019-12-07] MEDS: ASPIRIN 81 MG TABLET.DR PO SCH (09:56)
[2019-12-07] MEDS: AMOX TR/POTASSIUM CLAVULANATE 875 MG TABLET PO SCH (09:56)
[2019-12-07] MEDS: INSULIN GLARGINE,HUM.REC.ANLOG 100 UNITS/ML VIAL SC SCH (09:56)
[2019-12-07] MEDS ORDERED: ALPRAZolam 1 MG TABLET PO ONE (12:18)
--- NOTE | 2019-12-07 12:20 | DS ---
(1) Coronary artery disease Problem: Chronic Qualifiers: Coronary Disease-Associated Artery/Lesion type: unspecified vessel or lesion type [place] vs. 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: with local intermodal truck driver use Diabetes mellitus complication status: with circulatory complication Diabetes mellitus complication detail: with other circulatory complications Qualified Code(s): E11.59 - Type 2 diabetes mellitus with other circulatory complications; 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 He has had a previous CABG and has had 9 stents placed since then. He developed atrial fibrillation several years ago and has had fibrillation and flutter problems in the past. 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 He has a permanent AICD and pacemaker. He is a patient of Dr. Joselin Peguero at the [facility] and Dr. Barragan for electrophysiology. He was also having a lot of abdominal pain on admission but was stooling normally. He denied nausea or vomiting. He also reports that he has had a total of 6 strokes 4 of which were embolic and one was hemorrhagic. He has virtually no deficit from those which is miraculous. Since admission he has been placed on dicyclomine which she has relieved his abdominal discomfort according to him about 95%. He was having more intense chest discomfort on the day of admission and it has decrescendo each day since. He had a tiny bump up of his troponin which is returned to normal. I contacted Dr. Peguero through the transport center at the [facility] and she stated they would not to be doing anything procedural with a tiny bump such as he has had anyway. She is arranged for a telehealth visit for him on December 21 at 1:15 PM per telephone. He has a GI appointment at May 10 and they are trying to move that appointment date up if possible. Because of his extensive medical history initially it was thought he needed to be transported to the [facility]. In fact, [facility] he refused to accept him because they thought his care needs were beyond their ability to provide. The [facility] has been full with a long waiting list. I have no open beds. Furthermore, they do not anticipate having any open beds for a minimum of another 48 hours. I have given Hi the option of staying here until a bed open to the [facility] or because he is improved so much since admission that he should just go home and set up is consultations as an outpatient. He is in agreement to do that. He seems to have quite a lot of anxiety about going home. Enough so that he developed a little bit of chest discomfort. I did a repeat EKG that shows completely paced rhythm and no ischemia. He has had 1 mg of Xanax and is feeling calm her already. His disposition is improved. His prognosis is fair. Procedures Performed: none Results and Findings: Lab Pending Results 12/03/19 22:26: WBC 7.1, RBC 5.21, Hgb 15.9, Hct 46.9, MCV 90.0, MCH 30.5, MCHC 33.9, RDW 14.6 H, Plt Count 137 L, MPV 10.1, Immature Gran % (Auto) 0.30, Immature Gran # (Auto) 0.02, Neutrophils % 50.8, Lymphocytes % 36.2, Monocytes % 9.1 H, Eosinophils % 2.5, Basophils % 1.1 H, Nucleated RBC % 0.0, Neutrophils # 3.6, Lymphocytes # 2.56, Monocytes # 0.6, Eosinophils # 0.2, Absolute Basophils 0.1 12/03/19 22:26: PT 11.4 H, INR (Anticoag Therapy) 1.16 H, PTT ([place]) 26.3 12/03/19 22:26: Sodium 134, Plasma Sodium 137, Potassium 3.3 L, Chloride 97, Carbon Dioxide 29.4, Anion Gap 10.9, BUN 16, Creatinine 1.12, Est GFR (Non-Af Amer) 70, BUN/Creatinine Ratio 14.3, Random Glucose 269 H, Calcium 8.9, Calcium Adj for Albumin 9.4, Total Bilirubin 0.6, AST 47, ALT 69 H, Alkaline Phosphatase 208 H, Troponin I 0.107 H, B-Natriuretic Peptide 1003 H, Total Protein 7.4, Albumin 3.0 L 12/04/19 00:22: SARS-CoV-2 (PCR) Not detected 12/04/19 06:10: Troponin I 0.110 H 12/04/19 09:00: Troponin I 0.089 12/04/19 19:42: Troponin I 0.075 12/05/19 06:18: WBC 5.6 D, RBC 5.15, Hgb 16.0, Hct 47.1, MCV 91.5, MCH 31.1 H, MCHC 34.0, RDW 14.8 H, Plt Count 137 L, MPV 10.2, Immature Gran % (Auto) 0.40, Immature Gran # (Auto) 0.02, Neutrophils % 45.6, Lymphocytes % 40.0, Monocytes % 11.0 H, Eosinophils % 2.3, Basophils % 0.7, Nucleated RBC % 0.0, Neutrophils # 2.6, Lymphocytes # 2.25, Monocytes # 0.6, Eosinophils # 0.1, Absolute Basophils 0.0 12/05/19 06:18: Sodium 136, Plasma Sodium 138, Potassium 3.3 L, Chloride 100, Carbon Dioxide 30.6, Anion Gap 8.7, BUN 14, Creatinine 1.07, Est GFR (Non-Af Amer) 74, BUN/Creatinine Ratio 13.1, Random Glucose 232 H, Calcium 8.8, Calcium Adj for Albumin 9.4, Total Bilirubin 0.6, AST 63 H, ALT 77 H, Alkaline Phosphatase 149, Total Protein 6.8, Albumin 2.8 L 12/05/19 06:18: Troponin I 0.074 12/07/19 06:30: WBC 6.7, RBC 5.19, Hgb 15.8, Hct 47.6, MCV 91.7, MCH 30.4, MCHC 33.2, RDW 14.8 H, Plt Count 144 L, MPV 10.1, Immature Gran % (Auto) 0.30, Immature Gran # (Auto) 0.02, Neutrophils % 46.9, Lymphocytes % 39.1, Monocytes % 9.5 H, Eosinophils % 3.3 H, Basophils % 0.9, Nucleated RBC % 0.0, Neutrophils # 3.2, Lymphocytes # 2.63, Monocytes # 0.6, Eosinophils # 0.2, Absolute Basophils 0.1 12/07/19 06:30: Sodium 136, Plasma Sodium 137, Potassium 3.5, Chloride 100, Carbon Dioxide 31.2, Anion Gap 8.3, BUN 16, Creatinine 1.06, Est GFR (Non-Af Amer) 75, BUN/Creatinine Ratio 15.1, Random Glucose 172 H, Calcium 8.7, Calcium Adj for Albumin 9.4, Total Bilirubin 0.6, AST 77 H, ALT 97 H, Alkaline Phosphatase 136, Total Protein 6.8, Albumin 2.7 L Discharge Location: Home Disposition: Home self-care Condition: Stable Face to Face Encounter completed per [facility] Guidelines: No Discharge Activity: Activity as tolerated Discharge Diet: Consistent carbs Referrals: Esmer Machado MD [Primary Care Provider] - Additional Patient Instructions (free text): Telephone appointment with Dr Peguero at December 21 at 1:15pm He should follow with his PCP or with me in the next 2 weeks. He should return here should he have any significant chest pain issues that will not resolve at home. Prescriptions (Any new or edited meds): Dicyclomine HCl [Bentyl] 20 mg PO QID #120 tab Transmission Status: Received by [facility] Furosemide [Lasix] 80 mg PO DAILY #30 tab Transmission Status: Received by [facility] Insulin Degludec [Tresiba Flextouch U-200] 92 unit SQ DAILY #3 [email or web address] Transmission Status: Received by [facility] Complete Home Medications List: Complete Home Medication List: Aspirin [Aspirin Enteric Coated] 81 mg PO QAM 03/27/15 Apixaban [Eliquis] 2.5 mg PO BID 12/17/17 Insulin Detemir [Levemir] 92 unit SQ HS 02/13/18 Colchicine 0.6 mg PO BID 02/15/19 Allopurinol [Zyloprim] 100 mg PO DAILY PRN 07/18/19 Amoxicillin/Potassium Clav [Amox-Clav 875-125 mg Tablet] 1 tab PO BID 12/03/19 Furosemide [Lasix] 40 mg PO HS 12/03/19 Furosemide [Lasix] 80 mg PO DAILY 12/03/19 Dicyclomine HCl [Bentyl] 20 mg PO QID #120 tab 12/07/19 Furosemide [Lasix] 80 mg PO DAILY #30 tab 12/07/19 Insulin Degludec [Tresiba Flextouch U-200] 92 unit SQ DAILY #3 insuln.pen 12/07/19 Forms: Patient Portal Registration
[2019-12-07 15:01] VITALS: BP 153/83
== END 2019-12-07 15:40 | disposition home or self-care (01) | DRG 303 ==
LOC: MS 21:57 → ER 21:57 → OBSVTOIN 12-04 12:16
PROVIDERS: ADMIT Family Medicine; ATTEND Family Medicine
DX: I11.0 Hypertensive heart disease with heart failure; I48.20 Chronic atrial fibrillation, unspecified; E11.59 Type 2 diabetes mellitus with other circulatory complications; R06.02 Shortness of breath; Z79.4 Long term (current) use of insulin; Z87.891 Personal history of nicotine dependence; I25.110 Atherosclerotic heart disease of native coronary artery with unstable angina pectoris; Z11.59 Encounter for screening for other viral diseases; Z86.73 Personal history of transient ischemic attack (TIA), and cerebral infarction without residual deficits; R79.89 Other specified abnormal findings of blood chemistry; F41.1 Generalized anxiety disorder
CPT/HCPCS: 36415; 71020; 71046; 80053; 83519; 83880; 84484; 85025; 85610; 85730; 93005; 96374; 99284; 99285; C9803; G0378